=== PATIENT | male | born 1935 | race Asian ===

== ENCOUNTER 2019-06-26 17:55 | Inpatient (IN) | payer OTHER ==
[~2019-06-26] VITALS: Ht 165.1 cm; Wt 68.0 kg
--- NOTE | 2019-06-26 18:17 | Emergency Room Report ---
History of Present Illness General Chief Complaint: Altered Mental Status Source: Family Member Present Illness HPI 83-year-old male history of hypertension history of CKD presents with altered mental status started at 5 PM no known aggravating relieving factors patient was confused, patient was found sitting down in the garage, patient denies any chest pain or shortness of breath however history is limited due to patient's confusion per nephew patient also feels very warm Allergies: Coded Allergies: No Known Allergies (Unverified , 06/26/19) Patient History Limited by: medical condition - Confused Past Medical History: see triage record Reviewed Nursing Documentation: PMH: Agreed; PSxH: Agreed Nursing Documentation-PMH Past Medical History: No Stated History Review of Systems All Other Systems: limited - Confused Physical Exam Vital Signs Date Time Temp Pulse Resp B/P (MAP) Pulse Ox O2 Delivery O2 Flow Rate FiO2 06/26/19 17:57 97.9 98 16 112/53 (72) 96 Room Air Sp02 EP Interpretation: reviewed, normal General Appearance: well appearing, no apparent distress, alert Head: normocephalic, atraumatic Eyes: bilateral eye PERRL, bilateral eye EOMI ENT: uvula midline, moist mucus membranes Neck: supple, thyroid normal, supple/symm/no masses Respiratory: lungs clear, no respiratory distress, no retraction, no accessory muscle use Cardiovascular #1: normal peripheral pulses, regular rate, rhythm, no edema, no gallop, no murmur Gastrointestinal: non tender, soft, no guarding, no rebound Musculoskeletal: normal inspection Neurologic: alert, other - Confused, moving all 4 extremities, following commands Psychiatric: mood/affect normal Skin: no rash, warm/dry Procedures Critical Care Time Critical Care Time Given the critical condition in which the patient arrived, the patient was immediately assessed by myself and the nurse, and cardiac monitoring initiated due to the potential for rapid decompensation of the patient's clinical condition. During the course of the patient's stay, I spent a considerable amount of time at the bedside performing serial re-evaluations of the patient's hemodynamic and clinical status because of the recognized potential threat to life or limb in this condition. I then had a chance to review not only all of the available current laboratory and radiographic studies obtained today, but I also reviewed old records available to me at the time. Additionally, any ancillary information available including property and equipment clerk records were reviewed. Sequential vital signs were obtained. Critical Care time of 36 minutes was performed exclusive of billable procedures. Medical Decision Making Diagnostic Impression: Primary Impression: Altered mental status Qualified Codes: R41.82 - Altered mental status, unspecified Additional Impressions: UTI (urinary tract infection) Qualified Codes: N30.01 - Acute cystitis with hematuria Sepsis Qualified Codes: A41.9 - Sepsis, unspecified organism; R65.20 - Severe sepsis without septic shock; G93.40 - Encephalopathy, unspecified ER Course 83-year-old male presents with most likely UTI due to sepsis, will cover with antibiotics, will resuscitate with fluids CT incidentally showed a potential pituitary adenoma with sellar hyperdense lesion that could be further characterized with MRI Spoke with [facility] at 8:50pm, Neurocrit neurologist recommended no acute intervention Spoke with neurosurgeon at 10:[address] King from [facility] No acute surgical intervention patient may be characterized further with MRI, may check cortisol, may check thyroid to ensure tumor is not contributing to AMS in addition to urosepsis. Will admit patient to [facility]. Laboratory Tests Test 06/26/19 18:20 White Blood Count 9.6 K/UL (4.8-10.8) Red Blood Count 3.94 M/UL (4.70-6.10) L Hemoglobin 13.4 G/DL (14.2-18.0) L Hematocrit 41.9 % (42.0-52.0) L Mean Corpuscular Volume 106 FL (80-99) H Mean Corpuscular Hemoglobin 34.0 PG (27.0-31.0) H Mean Corpuscular Hemoglobin Concent 31.9 G/DL (32.0-36.0) L Red Cell Distribution Width 13.2 % (11.6-14.8) Platelet Count 114 K/UL (150-450) L Mean Platelet Volume 8.5 FL (6.5-10.1) Neutrophils (%) (Auto) % (45.0-75.0) Lymphocytes (%) (Auto) % (20.0-45.0) Monocytes (%) (Auto) % (1.0-10.0) Eosinophils (%) (Auto) % (0.0-3.0) Basophils (%) (Auto) % (0.0-2.0) Differential Total Cells Counted 100 Neutrophils % (Manual) 90 % (45-75) H Lymphocytes % (Manual) 4 % (20-45) L Monocytes % (Manual) 1 % (1-10) Eosinophils % (Manual) 0 % (0-3) Basophils % (Manual) 0 % (0-2) Band Neutrophils 5 % (0-8) Platelet Estimate Decreased L Platelet Morphology Normal Anisocytosis 1+ Macrocytosis 1+ Prothrombin Time 21.7 SEC (9.30-11.50) H Prothrombin Time INR 2.1 (0.9-1.1) H Activated Partial Thromboplast Time 35 SEC (23-33) H Urine Color Yellow Urine Appearance Slightly cloudy Urine pH 5 (4.5-8.0) Urine Specific [place] 1.020 (1.005-1.035) Urine Protein 2+ (NEGATIVE) H Urine Glucose (UA) Negative (NEGATIVE) Urine Ketones 1+ (NEGATIVE) H Urine Blood 5+ (NEGATIVE) H Urine Nitrite Negative (NEGATIVE) Urine Bilirubin Negative (NEGATIVE) Urine Urobilinogen 1 MG/DL (0.0-1.0) H Urine Leukocyte Esterase 1+ (NEGATIVE) H Urine RBC 20-30 /HPF (0 - 0) H Urine WBC 2-4 /HPF (0 - 0) Urine Squamous Epithelial Cells Occasional /LPF Urine Bacteria Many /HPF (NONE) H Urine Fine Granular Casts 0-2 /LPF (NONE) H Sodium Level 140 MMOL/L (136-145) Potassium Level 4.0 MMOL/L (3.5-5.1) Chloride Level 104 MMOL/L (98-107) Carbon Dioxide Level 24 MMOL/L (21-32) Anion Gap 12 mmol/L (5-15) Blood Urea Nitrogen 42 mg/dL (7-18) H Creatinine 2.1 MG/DL (0.55-1.30) H Estimate Glomerular Filtration Rate mL/min (>60) Glucose Level 108 MG/DL (74-106) H Lactic Acid Level 2.80 mmol/L (0.4-2.0) H Calcium Level 9.1 MG/DL (8.5-10.1) Phosphorus Level 1.8 MG/DL (2.5-4.9) L Magnesium Level 1.9 MG/DL (1.8-2.4) Total Bilirubin 2.1 MG/DL (0.2-1.0) H Direct Bilirubin 0.5 MG/DL (0.0-0.3) H Aspartate Amino Transferase (AST) 51 U/L (15-37) H Alanine Aminotransferase (ALT) 37 U/L (12-78) Alkaline Phosphatase 83 U/L (46-116) Total Creatine Kinase 250 U/L (26-308) Troponin I 0.018 ng/mL (0.000-0.056) Pro-B-Type Natriuretic Peptide 5562 pg/mL (0-125) H Total Protein 7.3 G/DL (6.4-8.2) Albumin 3.6 G/DL (3.4-5.0) Globulin 3.7 g/dL Albumin/Globulin Ratio 1.0 (1.0-2.7) Lipase 106 U/L (73-393) EKG Diagnostic Results EKG Time: 18:59 EP Interpretation: Atrial fibrillation, rate 103, QTc 434, no acute ST elevations, left axis d Rhythm Strip Diag. Results Rhythm Strip Time: 20:18 EP Interpretation: yes Rate: 85 Rhythm: other - Atrial fibrillation Chest X-Ray Diagnostic Results Chest X-Ray Diagnostic Results : Chest X-Ray Ordered: Yes # of Views/Limited/Complete: 1 View Indication: Other - Altered mental status EP Interpretation: Yes Interpretation: no consolidation, no effusion, no pneumothorax, no acute cardiopulmonary disease Impression: No acute disease Electronically Signed by: Elver Krishna MD Last Vital Signs Date Time Temp Pulse Resp B/P (MAP) Pulse Ox O2 Delivery O2 Flow Rate FiO2 06/26/19 17:57 97.9 98 16 112/53 (72) 96 Room Air Disposition: ADMITTED INPATIENT Condition: Serious Evaluation Current Stage of Sepsis: Sepsis Focused Exam Allergies: Coded Allergies: No Known Allergies (Unverified , 06/26/19) Date Exam Occurred: Jun 26, 2019 Time Exam Occurred: 20:19 Laboratory Studies Laboratory Tests Test 06/26/19 18:20 White Blood Count 9.6 K/UL (4.8-10.8) Red Blood Count 3.94 M/UL (4.70-6.10) L Hemoglobin 13.4 G/DL (14.2-18.0) L Hematocrit 41.9 % (42.0-52.0) L Mean Corpuscular Volume 106 FL (80-99) H Mean Corpuscular Hemoglobin 34.0 PG (27.0-31.0) H Mean Corpuscular Hemoglobin Concent 31.9 G/DL (32.0-36.0) L Red Cell Distribution Width 13.2 % (11.6-14.8) Platelet Count 114 K/UL (150-450) L Mean Platelet Volume 8.5 FL (6.5-10.1) Neutrophils (%) (Auto) % (45.0-75.0) Lymphocytes (%) (Auto) % (20.0-45.0) Monocytes (%) (Auto) % (1.0-10.0) Eosinophils (%) (Auto) % (0.0-3.0) Basophils (%) (Auto) % (0.0-2.0) Differential Total Cells Counted 100 Neutrophils % (Manual) 90 % (45-75) H Lymphocytes % (Manual) 4 % (20-45) L Monocytes % (Manual) 1 % (1-10) Eosinophils % (Manual) 0 % (0-3) Basophils % (Manual) 0 % (0-2) Band Neutrophils 5 % (0-8) Platelet Estimate Decreased L Platelet Morphology Normal Anisocytosis 1+ Macrocytosis 1+ Prothrombin Time 21.7 SEC (9.30-11.50) H Prothromb Time International Ratio 2.1 (0.9-1.1) H Activated Partial Thromboplast Time 35 SEC (23-33) H Urine Color Yellow Urine Appearance Slightly cloudy Urine pH 5 (4.5-8.0) Urine Specific [place] 1.020 (1.005-1.035) Urine Protein 2+ (NEGATIVE) H Urine Glucose (UA) Negative (NEGATIVE) Urine Ketones 1+ (NEGATIVE) H Urine Blood 5+ (NEGATIVE) H Urine Nitrite Negative (NEGATIVE) Urine Bilirubin Negative (NEGATIVE) Urine Urobilinogen 1 MG/DL (0.0-1.0) H Urine Leukocyte Esterase 1+ (NEGATIVE) H Urine RBC 20-30 /HPF (0 - 0) H Urine WBC 2-4 /HPF (0 - 0) Urine Squamous Epithelial Cells Occasional /LPF Urine Bacteria Many /HPF (NONE) H Urine Fine Granular Casts 0-2 /LPF (NONE) H Sodium Level 140 MMOL/L (136-145) Potassium Level 4.0 MMOL/L (3.5-5.1) Chloride Level 104 MMOL/L (98-107) Carbon Dioxide Level 24 MMOL/L (21-32) Anion Gap 12 mmol/L (5-15) Blood Urea Nitrogen 42 mg/dL (7-18) H Creatinine 2.1 MG/DL (0.55-1.30) H Estimat Glomerular Filtration Rate mL/min (>60) Glucose Level 108 MG/DL (74-106) H Lactic Acid Level 2.80 mmol/L (0.4-2.0) H Calcium Level 9.1 MG/DL (8.5-10.1) Phosphorus Level 1.8 MG/DL (2.5-4.9) L Magnesium Level 1.9 MG/DL (1.8-2.4) Total Bilirubin 2.1 MG/DL (0.2-1.0) H Direct Bilirubin 0.5 MG/DL (0.0-0.3) H Aspartate Amino Transf (AST/SGOT) 51 U/L (15-37) H Alanine Aminotransferase (ALT/SGPT) 37 U/L (12-78) Alkaline Phosphatase 83 U/L (46-116) Total Creatine Kinase 250 U/L (26-308) Troponin I 0.018 ng/mL (0.000-0.056) Pro-B-Type Natriuretic Peptide 5562 pg/mL (0-125) H Total Protein 7.3 G/DL (6.4-8.2) Albumin 3.6 G/DL (3.4-5.0) Globulin 3.7 g/dL Albumin/Globulin Ratio 1.0 (1.0-2.7) Lipase 106 U/L (73-393) Vital Signs Last 24 Hour Vital Signs Date Time Temp Pulse Resp B/P (MAP) Pulse Ox O2 Delivery O2 Flow Rate FiO2 06/26/19 18:20 97.9 94 16 112/53 96 Room Air 06/26/19 18:20 98 16 Room Air 06/26/19 17:57 97.9 98 16 112/53 (72) 96 Room Air Respiratory Exam: CTA Bilaterally Cardiovascular Exam: Iregularly Irregular Capillary Refill: Less Than 2 Seconds Peripheral Pulse: Strong Pulse Location: Radial Skin Exam: Normal Elver Zhang MD Jun 26, 2019 18:17
[2019-06-26 18:20] VITALS: BP 112/53
--- NOTE | 2019-06-26 18:20 | NUR ---
ED Nurse Note: Pt brought in by ambulance d/t altered mental status. Nephew at bedside. Per nephew, pt is usually A+Ox4 at baseline, with some forgetfulness, but now in ED he is A+Ox2, confused. Vitals stable as documented. Respirations even and unlabored on room air. Pt is kazakh speaking only. ED MD @ bedside.
[2019-06-26 18:50] LABS: APPEARANCE,URINE SLIGHTLY CLOUDY; BILIRUBIN, URINE NEGATIVE (NEGATIVE); GLUCOSE, URINE (UA) NEGATIVE (NEGATIVE); KETONES,URINE 1+ (NEGATIVE); LEUKOCYTE ESTERASE ,URINE 1+ (NEGATIVE); NITRITE,URINE NEGATIVE (NEGATIVE); PH,URINE 5 (4.5-8.0); PROTEIN,URINE 2+ (NEGATIVE); UROBILINOGEN,URINE 1 MG/DL (0.0-1.0)
[2019-06-26 18:51] LABS: COLOR,URINE YELLOW; HEMATOCRIT 41.9 % (42.0-52.0); HEMOGLOBIN 13.4 G/DL (14.2-18.0); MEAN CORPUSCULAR VOLUME 106 FL (80-99); PLATELET COUNT 114 K/UL (150-450); RED BLOOD COUNT 3.94 M/UL (4.70-6.10); RED CELL DISTRIBUTION WIDTH 13.2 % (11.6-14.8); WHITE BLOOD COUNT 9.6 K/UL (4.8-10.8)
[2019-06-26 19:04] LABS: INR 2.1 (0.9-1.1)
[2019-06-26 19:08] LABS: ANION GAP 12 mmol/L (5-15); BLOOD UREA NITROGEN 42 mg/dL (7-18); CALCIUM 9.1 MG/DL (8.5-10.1); CARBON DIOXIDE 24 MMOL/L (21-32); CHLORIDE 104 MMOL/L (98-107); CREATININE 2.1 MG/DL (0.55-1.30); SODIUM 140 MMOL/L (136-145)
[2019-06-26 19:22] LABS: ALANINE AMINOTRANSFERASE 37 U/L (12-78); ALBUMIN 3.6 G/DL (3.4-5.0); ALKALINE PHOSPHATASE 83 U/L (46-116); ASPARTATE AMINO TRANSFERASE 51 U/L (15-37); BILIRUBIN,TOTAL 2.1 MG/DL (0.2-1.0); CREATINE KINASE 250 U/L (26-308); PHOSPHORUS 1.8 MG/DL (2.5-4.9)
[2019-06-26 19:23] LABS: BILIRUBIN,DIRECT 0.5 MG/DL (0.0-0.3)
--- NOTE | 2019-06-26 19:40 | NUR ---
ED Nurse Note: Report given to HANNAH Ceron. Plan of care endorsed.
[2019-06-26] MEDS ORDERED: cefTRIAXone 1 GM in NS 55 ML IVPB ONE (19:45)
--- NOTE | 2019-06-26 20:17 | Diagnostic Imaging Report ---
Indications: Altered mental status Technique: Spiral acquisitions obtained through the brain. Angled axial and coronal 5 x 5 mm slices were reconstructed. Total dose length product 1394 mGycm. CTDI vol(s) 62 mGy. Dose reduction achieved using automated exposure control Comparison: None. Findings: There is age-related enlargement of the ventricles and extra axial CSF spaces. There is periventricular deep white matter low-attenuation, consistent with chronic microvascular ischemic change. There is a hyperattenuating mass protruding cephalad from the sella turcica, measures 18 mm transverse by 16 mm AP by 15 mm craniocaudad. There is evidence of prior bilateral cataract surgery. Normal skelton-white differentiation. The mastoids are clear. The visualized sinuses are clear. The calvarium is intact. 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 Consider contrast MRI for better characterization Negative for acute intracranial bleed or mass effect Chronic and age-related changes This agrees with the preliminary interpretation provided overnight by [facility]. The CT scanner at [facility] is accredited by the [employer] and the scans are performed using protocols designed to limit radiation exposure to as low as reasonably achievable to attain images of sufficient resolution adequate for diagnostic evaluation.
--- NOTE | 2019-06-26 20:20 | NUR ---
ED Nurse Note: Patient resting comfortably with no complaints, nephew is at bedside.
--- NOTE | 2019-06-26 20:25 | NUR ---
ED Nurse Note: Reflex lactic drawn and sent to lab.
--- NOTE | 2019-06-26 20:44 | NUR ---
ED Nurse Note: Patient tolerated IV antibiotics well, will continue to monitor.
--- NOTE | 2019-06-26 21:30 | NUR ---
ED Nurse Note: Patient vital signs are stable and documented, will continue to monitor.
--- NOTE | 2019-06-26 22:30 | NUR ---
ED Nurse Note: ERMd at bedside consulting patient's nephew.
--- NOTE | 2019-06-26 23:30 | NUR ---
ED Nurse Note: Patient is resting comfortably, belongings sheet completed. Nephew remains at bedside.
[2019-06-27] MEDS ORDERED: Albuterol/Ipratropium 3ml neb HHN PRN
[2019-06-27] MEDS ORDERED: Miralax 17gm pkt ORAL PRN
--- NOTE | 2019-06-27 00:21 | NUR ---
ED Nurse Note: REport called in to Minsu RN.
--- NOTE | 2019-06-27 00:25 | NUR ---
ED Nurse Note: Patient transported to floor without incident.
--- NOTE | 2019-06-27 00:55 | NUR ---
NURSE NOTES: Received report from HANNAH Hill. Pt arrived to the unit @ 0040 via gurney. AAO x 4, on room air. Sinhala speaking. Family is at bedside. Denies pain and no acute distress noted. Vitals stable 120/67BP, 89 HR, 20 RR, 95% O2, 97.8F. Pt wearing upper and lower denture. All belongings reviewed. Pt stated taking blood pressure med at home but doesn't remember name of medication and dose. Family will bring it tomorrow. Skin intact and no pressure ulcer noted. IV site intact and patent. pt is using urinal. Fall and aspiration precaution maintained. Orientation to the facility and room given. Dr. West put admission orders. Bed lowest position, locked, alarm on, side rails up, call light within reach. Will continue to monitor.
[2019-06-27 04:00] VITALS: BP 128/70
[2019-06-27] MEDS: NovoLOG Insulin Flexpen SUBQ SCH ×2 (05:38→11:30)
[2019-06-27 07:15] LABS: ANION GAP 5 mmol/L (5-15); BLOOD UREA NITROGEN 39 mg/dL (7-18); CALCIUM 8.4 MG/DL (8.5-10.1); CARBON DIOXIDE 27 MMOL/L (21-32); CHLORIDE 109 MMOL/L (98-107); CREATININE 1.5 MG/DL (0.55-1.30); POTASSIUM 4.3 MMOL/L (3.5-5.1); SODIUM 141 MMOL/L (136-145)
[2019-06-27 07:35] LABS: HEMATOCRIT 33.6 % (42.0-52.0); HEMOGLOBIN 11.7 G/DL (14.2-18.0); MEAN CORPUSCULAR VOLUME 101 FL (80-99); PLATELET COUNT 74 K/UL (150-450); RED BLOOD COUNT 3.33 M/UL (4.70-6.10); WHITE BLOOD COUNT 13.7 K/UL (4.8-10.8)
--- NOTE | 2019-06-27 07:35 | NUR ---
HAND-OFF: Report given to HANNAH Jackson.
--- NOTE | 2019-06-27 07:36 | NUR ---
NURSE NOTES: Received patient in bed, awake, alert and oriented x4 @ this time. Patient denies any pain or discomfort. Not in respiratory/cardiac distress. Able to urinate without discomfort,no bloody urine. IV is intact, no s/s of infiltration. Patient is on NPO per doctor's order. No s/s of hypoglycemia. Call light and personnel items within reach. Will continue plan of care.
[2019-06-27 08:00] VITALS: BP 125/56
--- NOTE | 2019-06-27 09:30 | NUR ---
NURSE NOTES: patient's nephew Otis brought some medication bottles from home but 4 bottles out of 5 were empty and patient and nephew don't know when was the last time patient took medications. Patient's primary doctor is Dr. Lamb,E [phone] and Pharmacy is [facility] pharmacy. RN placed calls to both places. no one answers the phone @ this time.Will follow up.
--- NOTE | 2019-06-27 10:35 | NUR ---
PT EVALUATION NOTE Patient seen for initial evaluation. Patient presents with generalized weakness which impairs patient's balance and ability to perform mobility tasks safely. Patient requires SBA for bed mobility and CGA for transfers. Patient able to ambulate 75 ft with CGA, slightly unsteady during ambulation however no loss of balance. Patient will benefit from skilled inpatient PT intervention to address strength, balance and safety for improved level of independence with functional mobility. Recommend discharge home with family assistance once medically cleared by MD. DME needs to be determined based on patient's progress, may benefit from use of SPC for ambulation. Addendum: 06/27/19 at 1315 by ANA JACKSON PT Amended: Links added.
[2019-06-27] MEDS ORDERED: CARVEDILOL6.25 MG ORAL (10:41)
[2019-06-27] MEDS ORDERED: WARFARIN SODIUM3 MG ORAL (10:41)
[2019-06-27] MEDS ORDERED: CALCITRIOL0.25 MCG PO (10:41)
[2019-06-27] MEDS ORDERED: FINASTERIDE5 MG ORAL (10:41)
[2019-06-27] MEDS ORDERED: FLOMAX0.4 MG ORAL (10:41)
--- NOTE | 2019-06-27 11:00 | NUR ---
NURSE NOTES: Patient was seen by Dr. West. Dr. West is aware of PLT of 74 without episodes of bleeding.Received ST eval.patient was evaluated by PT.
--- NOTE | 2019-06-27 11:13 | NUR ---
*-* INSURANCE *-* ALL CLINICALS AND REVIEWS HAVE BEEN FAXED TO: [facility] [employer] # YET # [phone] FAX# [phone] REVIEWS/CLINICALS
--- NOTE | 2019-06-27 11:18 | NUR ---
NURSE NOTES: Received blood culture report from Bety from [place].Blood culture came back positive to gram (-) rods in 4 bottles. RN placed a call to Dr. Leung's office and left message to Margaret. Awaiting for return call.Patient is afebrile. Not in acute distress.
--- NOTE | 2019-06-27 11:30 | NUR ---
NURSE NOTES: Dr. gee came in and seen the patient. MD is aware of blood culture result.
--- NOTE | 2019-06-27 11:49 | Infectious Diseases Prog Note ---
Assessment/Plan Assessment/Plan A) 1. gram neg bacteremia, ? uti, ?biliary source, elevated bilirubin 2. pmh noted 3. allergies - nkda P) 1. zosyn 2. check bc, uc 3. abdominal US 4. d/w Dr. West 5. thank you Subjective Allergies: Coded Allergies: No Known Allergies (Unverified , 06/26/19) Objective Vital Signs Last 24 Hour Vital Signs Date Time Temp Pulse Resp B/P (MAP) Pulse Ox O2 Delivery O2 Flow Rate FiO2 06/27/19 09:00 Room Air 06/27/19 08:00 97.3 84 18 125/56 (79) 97 06/27/19 04:00 97.7 81 20 128/70 (89) 97 06/27/19 01:21 Room Air 06/27/19 00:25 97.9 94 16 112/53 96 Room Air 06/26/19 18:20 97.9 94 16 112/53 96 Room Air 06/26/19 18:20 98 16 Room Air 06/26/19 17:57 97.9 98 16 112/53 (72) 96 Room Air Height (Feet): 5 Height (Inches): 5.00 Weight (Pounds): 160 Microbiology Date/Time Source Procedure Growth Status 06/26/19 18:25 Blood Blood Culture - Preliminary Resulted 06/26/19 18:10 Blood Blood Culture - Preliminary Resulted 06/26/19 18:20 Urine,Clean Catch Urine Culture - Preliminary NO GROWTH Resulted Laboratory Tests Test 06/26/19 18:10 06/26/19 18:20 06/26/19 20:23 06/27/19 05:45 Thyroid Stimulating Hormone (TSH) 1.535 uiU/mL (0.358-3.740) Free Thyroxine 0.98 NG/DL (0.76-1.46) Free Triiodothyronine 1.4 pg/mL (2.3-4.2) L Cortisol Pending White Blood Count 9.6 K/UL (4.8-10.8) 13.7 K/UL (4.8-10.8) H Red Blood Count 3.94 M/UL (4.70-6.10) L 3.33 M/UL (4.70-6.10) L Hemoglobin 13.4 G/DL (14.2-18.0) L 11.7 G/DL (14.2-18.0) L Hematocrit 41.9 % (42.0-52.0) L 33.6 % (42.0-52.0) L Mean Corpuscular Volume 106 FL (80-99) H 101 FL (80-99) H Mean Corpuscular Hemoglobin 34.0 PG (27.0-31.0) H 35.0 PG (27.0-31.0) H Mean Corpuscular Hemoglobin Concent 31.9 G/DL (32.0-36.0) L 34.7 G/DL (32.0-36.0) Red Cell Distribution Width 13.2 % (11.6-14.8) 13.0 % (11.6-14.8) Platelet Count 114 K/UL (150-450) L 74 K/UL (150-450) L Mean Platelet Volume 8.5 FL (6.5-10.1) 7.4 FL (6.5-10.1) Neutrophils (%) (Auto) % (45.0-75.0) % (45.0-75.0) Lymphocytes (%) (Auto) % (20.0-45.0) % (20.0-45.0) Monocytes (%) (Auto) % (1.0-10.0) % (1.0-10.0) Eosinophils (%) (Auto) % (0.0-3.0) % (0.0-3.0) Basophils (%) (Auto) % (0.0-2.0) % (0.0-2.0) Differential Total Cells Counted 100 100 Neutrophils % (Manual) 90 % (45-75) H 91 % (45-75) H Lymphocytes % (Manual) 4 % (20-45) L 5 % (20-45) L Monocytes % (Manual) 1 % (1-10) 4 % (1-10) Eosinophils % (Manual) 0 % (0-3) 0 % (0-3) Basophils % (Manual) 0 % (0-2) 0 % (0-2) Band Neutrophils 5 % (0-8) 0 % (0-8) Platelet Estimate Decreased L Decreased L Platelet Morphology Normal Normal Anisocytosis 1+ 1+ Macrocytosis 1+ 1+ Prothrombin Time 21.7 SEC (9.30-11.50) H Prothromb Time International Ratio 2.1 (0.9-1.1) H Activated Partial Thromboplast Time 35 SEC (23-33) H Urine Color Yellow Urine Appearance Slightly cloudy Urine pH 5 (4.5-8.0) Urine Specific [place] 1.020 (1.005-1.035) Urine Protein 2+ (NEGATIVE) H Urine Glucose (UA) Negative (NEGATIVE) Urine Ketones 1+ (NEGATIVE) H Urine Blood 5+ (NEGATIVE) H Urine Nitrite Negative (NEGATIVE) Urine Bilirubin Negative (NEGATIVE) Urine Urobilinogen 1 MG/DL (0.0-1.0) H Urine Leukocyte Esterase 1+ (NEGATIVE) H Urine RBC 20-30 /HPF (0 - 0) H Urine WBC 2-4 /HPF (0 - 0) Urine Squamous Epithelial Cells Occasional /LPF Urine Bacteria Many /HPF (NONE) H Urine Fine Granular Casts 0-2 /LPF (NONE) H Sodium Level 140 MMOL/L (136-145) 141 MMOL/L (136-145) Potassium Level 4.0 MMOL/L (3.5-5.1) 4.3 MMOL/L (3.5-5.1) Chloride Level 104 MMOL/L (98-107) 109 MMOL/L (98-107) H Carbon Dioxide Level 24 MMOL/L (21-32) 27 MMOL/L (21-32) Anion Gap 12 mmol/L (5-15) 5 mmol/L (5-15) Blood Urea Nitrogen 42 mg/dL (7-18) H 39 mg/dL (7-18) H Creatinine 2.1 MG/DL (0.55-1.30) H 1.5 MG/DL (0.55-1.30) H Estimat Glomerular Filtration Rate mL/min (>60) mL/min (>60) Glucose Level 108 MG/DL (74-106) H 109 MG/DL (74-106) H Lactic Acid Level 2.80 mmol/L (0.4-2.0) H 1.90 mmol/L (0.66-2.22) Calcium Level 9.1 MG/DL (8.5-10.1) 8.4 MG/DL (8.5-10.1) L Phosphorus Level 1.8 MG/DL (2.5-4.9) L Magnesium Level 1.9 MG/DL (1.8-2.4) Total Bilirubin 2.1 MG/DL (0.2-1.0) H Direct Bilirubin 0.5 MG/DL (0.0-0.3) H Aspartate Amino Transf (AST/SGOT) 51 U/L (15-37) H Alanine Aminotransferase (ALT/SGPT) 37 U/L (12-78) Alkaline Phosphatase 83 U/L (46-116) Total Creatine Kinase 250 U/L (26-308) Troponin I 0.018 ng/mL (0.000-0.056) Pro-B-Type Natriuretic Peptide 5562 pg/mL (0-125) H Total Protein 7.3 G/DL (6.4-8.2) Albumin 3.6 G/DL (3.4-5.0) Globulin 3.7 g/dL Albumin/Globulin Ratio 1.0 (1.0-2.7) Lipase 106 U/L (73-393) Hemoglobin A1c 6.1 % (4.3-6.0) H Current Medications Medications (Trade) Dose Ordered Sig/Chicho Route PRN Reason Start Time Stop Time Status Last Admin Dose Admin Acetaminophen (Tylenol) 650 mg Q4H PRN ORAL Mild Pain (Pain Scale 1-3) 06/27/19 00:00 07/27/19 00:00 Acetaminophen (Tylenol) 650 mg Q4H PRN ORAL fever 06/27/19 00:00 07/27/19 00:00 Albuterol/ Ipratropium (Albuterol/ Ipratropium) 3 ml Q4HR PRN HHN Shortness of Breath 06/27/19 00:00 07/02/19 00:00 Ceftriaxone Sodium 1 gm/ Sodium Chloride 55 ml @ 110 mls/hr DAILY@1900 IVPB 06/27/19 19:00 07/04/19 18:59 Dextrose (Dextrose 50%) 25 ml Q30M PRN IV Hypoglycemia 06/27/19 00:00 07/27/19 00:00 Dextrose (Dextrose 50%) 50 ml Q30M PRN IV Hypoglycemia 06/27/19 00:00 07/27/19 00:00 Ondansetron HCl (Zofran) 4 mg Q6H PRN IVP Nausea & Vomiting 2/11/20 00:00 07/27/19 00:00 Polyethylene Glycol (Miralax) 17 gm HSPRN PRN ORAL Constipation 06/27/19 00:00 07/27/19 00:00 Sohail Leung MD Jun 27, 2019 11:49
[2019-06-27 12:00] VITALS: BP 143/71
--- NOTE | 2019-06-27 12:07 | NUR ---
CASE MANAGEMENT:INITIAL REVIEW 83 YR OLD MALE BIBA FROM HOME CC; ALTERED MENTAL STATUS SI;AMS. SEPSIS. UTI. 97.9 98 20 125/56 96% ON RA BUN 42 CREAT 2.1 T-BILI 2.1 AST 51 BNP 5562 UA+ PROTEIN, KETONES, BLOOD, UROBILI, LEUKOCYTES, RBC BACTERIA HEAD CR - Mild chronic small vessel ischemic disease and cerebral volume loss. IS;IVF NS BOLUS ROCEPHIN IV X1 ADMITTED TO MED SURG MED SURG STATUS DCP;FROM HOME
--- NOTE | 2019-06-27 12:21 | Cardiac Electrophysiology PN ---
Subjective Subjective [id number] Objective Last 24 Hour Vital Signs Date Time Temp Pulse Resp B/P (MAP) Pulse Ox O2 Delivery O2 Flow Rate FiO2 06/27/19 09:00 Room Air 06/27/19 08:00 97.3 84 18 125/56 (79) 97 06/27/19 04:00 97.7 81 20 128/70 (89) 97 06/27/19 01:21 Room Air 06/27/19 00:25 97.9 94 16 112/53 96 Room Air 06/26/19 18:20 97.9 94 16 112/53 96 Room Air 06/26/19 18:20 98 16 Room Air 06/26/19 17:57 97.9 98 16 112/53 (72) 96 Room Air Intake and Output 06/26/19 06/27/19 19:00 07:00 Intake Total 0 ml Output Total 500 ml Balance 0 ml -500 ml Intake Oral 0 ml Output Urine Total 500 ml Laboratory Tests Test 06/26/19 18:10 06/26/19 18:20 06/26/19 20:23 06/27/19 05:45 Thyroid Stimulating Hormone (TSH) 1.535 uiU/mL (0.358-3.740) Free Thyroxine 0.98 NG/DL (0.76-1.46) Free Triiodothyronine 1.4 pg/mL (2.3-4.2) L Cortisol Pending White Blood Count 9.6 K/UL (4.8-10.8) 13.7 K/UL (4.8-10.8) H Red Blood Count 3.94 M/UL (4.70-6.10) L 3.33 M/UL (4.70-6.10) L Hemoglobin 13.4 G/DL (14.2-18.0) L 11.7 G/DL (14.2-18.0) L Hematocrit 41.9 % (42.0-52.0) L 33.6 % (42.0-52.0) L Mean Corpuscular Volume 106 FL (80-99) H 101 FL (80-99) H Mean Corpuscular Hemoglobin 34.0 PG (27.0-31.0) H 35.0 PG (27.0-31.0) H Mean Corpuscular Hemoglobin Concent 31.9 G/DL (32.0-36.0) L 34.7 G/DL (32.0-36.0) Red Cell Distribution Width 13.2 % (11.6-14.8) 13.0 % (11.6-14.8) Platelet Count 114 K/UL (150-450) L 74 K/UL (150-450) L Mean Platelet Volume 8.5 FL (6.5-10.1) 7.4 FL (6.5-10.1) Neutrophils (%) (Auto) % (45.0-75.0) % (45.0-75.0) Lymphocytes (%) (Auto) % (20.0-45.0) % (20.0-45.0) Monocytes (%) (Auto) % (1.0-10.0) % (1.0-10.0) Eosinophils (%) (Auto) % (0.0-3.0) % (0.0-3.0) Basophils (%) (Auto) % (0.0-2.0) % (0.0-2.0) Differential Total Cells Counted 100 100 Neutrophils % (Manual) 90 % (45-75) H 91 % (45-75) H Lymphocytes % (Manual) 4 % (20-45) L 5 % (20-45) L Monocytes % (Manual) 1 % (1-10) 4 % (1-10) Eosinophils % (Manual) 0 % (0-3) 0 % (0-3) Basophils % (Manual) 0 % (0-2) 0 % (0-2) Band Neutrophils 5 % (0-8) 0 % (0-8) Platelet Estimate Decreased L Decreased L Platelet Morphology Normal Normal Anisocytosis 1+ 1+ Macrocytosis 1+ 1+ Prothrombin Time 21.7 SEC (9.30-11.50) H Prothromb Time International Ratio 2.1 (0.9-1.1) H Activated Partial Thromboplast Time 35 SEC (23-33) H Urine Color Yellow Urine Appearance Slightly cloudy Urine pH 5 (4.5-8.0) Urine Specific [place] 1.020 (1.005-1.035) Urine Protein 2+ (NEGATIVE) H Urine Glucose (UA) Negative (NEGATIVE) Urine Ketones 1+ (NEGATIVE) H Urine Blood 5+ (NEGATIVE) H Urine Nitrite Negative (NEGATIVE) Urine Bilirubin Negative (NEGATIVE) Urine Urobilinogen 1 MG/DL (0.0-1.0) H Urine Leukocyte Esterase 1+ (NEGATIVE) H Urine RBC 20-30 /HPF (0 - 0) H Urine WBC 2-4 /HPF (0 - 0) Urine Squamous Epithelial Cells Occasional /LPF Urine Bacteria Many /HPF (NONE) H Urine Fine Granular Casts 0-2 /LPF (NONE) H Sodium Level 140 MMOL/L (136-145) 141 MMOL/L (136-145) Potassium Level 4.0 MMOL/L (3.5-5.1) 4.3 MMOL/L (3.5-5.1) Chloride Level 104 MMOL/L (98-107) 109 MMOL/L (98-107) H Carbon Dioxide Level 24 MMOL/L (21-32) 27 MMOL/L (21-32) Anion Gap 12 mmol/L (5-15) 5 mmol/L (5-15) Blood Urea Nitrogen 42 mg/dL (7-18) H 39 mg/dL (7-18) H Creatinine 2.1 MG/DL (0.55-1.30) H 1.5 MG/DL (0.55-1.30) H Estimat Glomerular Filtration Rate mL/min (>60) mL/min (>60) Glucose Level 108 MG/DL (74-106) H 109 MG/DL (74-106) H Lactic Acid Level 2.80 mmol/L (0.4-2.0) H 1.90 mmol/L (0.66-2.22) Calcium Level 9.1 MG/DL (8.5-10.1) 8.4 MG/DL (8.5-10.1) L Phosphorus Level 1.8 MG/DL (2.5-4.9) L Magnesium Level 1.9 MG/DL (1.8-2.4) Total Bilirubin 2.1 MG/DL (0.2-1.0) H Direct Bilirubin 0.5 MG/DL (0.0-0.3) H Aspartate Amino Transf (AST/SGOT) 51 U/L (15-37) H Alanine Aminotransferase (ALT/SGPT) 37 U/L (12-78) Alkaline Phosphatase 83 U/L (46-116) Total Creatine Kinase 250 U/L (26-308) Troponin I 0.018 ng/mL (0.000-0.056) Pro-B-Type Natriuretic Peptide 5562 pg/mL (0-125) H Total Protein 7.3 G/DL (6.4-8.2) Albumin 3.6 G/DL (3.4-5.0) Globulin 3.7 g/dL Albumin/Globulin Ratio 1.0 (1.0-2.7) Lipase 106 U/L (73-393) Hemoglobin A1c 6.1 % (4.3-6.0) H Microbiology Date/Time Source Procedure Growth Status 06/26/19 18:25 Blood Blood Culture - Preliminary Resulted 06/26/19 18:10 Blood Blood Culture - Preliminary Resulted 06/26/19 18:20 Urine,Clean Catch Urine Culture - Preliminary NO GROWTH Resulted Pro Scherer MD Jun 27, 2019 12:21
--- NOTE | 2019-06-27 14:00 | NUR ---
NURSE NOTES: US of abdomen was done.
--- NOTE | 2019-06-27 14:30 | NUR ---
NURSE NOTES: Patient tolerated well with his current diet.
--- NOTE | 2019-06-27 14:49 | Diagnostic Imaging Report ---
Indication: Abnormal liver function tests, abnormal renal function tests Technique: Cohen-scale and duplex images of the upper abdomen were obtained Comparison: none Findings: Gallbladder is unremarkable, without stones, wall thickening, nor pericholecystic fluid. Sonographic Trevino's sign is negative. Common bile duct measures 7 mm in diameter. No intrahepatic biliary ductal dilatation. Liver demonstrates slightly coarsened echogenicity. No focal abnormality. Portal vein and hepatic veins are patent. Pancreas is unremarkable. Spleen is unremarkable. Left kidney measures 7.6 cm in length. Right kidney measures 9.6 cm length. Both kidneys demonstrate normal echogenicity. There is no hydronephrosis. No focal abnormality . Non-aneurysmal abdominal aorta . There is a trace right pleural effusion Impression: Somewhat atrophic kidneys bilaterally. Negative for hydronephrosis Negative for gallstones or dilated bile ducts Coarsened hepatic echogenicity, likely indicates hepatocellular disease, otherwise nonspecific Trace right pleural effusion
--- NOTE | 2019-06-27 15:00 | NUR ---
NURSE NOTES: Rn collected urine specimen for urine culture and brought it to lab.
[2019-06-27] MEDS ORDERED: NS 500ML ONE (15:06)
[2019-06-27] MEDS ORDERED: Tubing IV Secondary IV ONE (15:06)
--- NOTE | 2019-06-27 15:16 | History and Physical ---
History of Present Illness General Date patient seen: Jun 27, 2019 Reason for Hospitalization: Altered Mental Status Present Illness HPI 83-year-old Hebrew speaking male, poor historian due to mental status with hypertension and chronic kidney disease, was brought in for altered mental status but his nephew. Patient was found confused, sitting down in the garage. Patient denies any chest pain, shortness of breath. There was no witnessed nausea, vomiting, or diaphoresis. history is limited due to patient's mental status. In the ED as a part of his AMS work up he had a CT head that incidentally showed a possible pituitary adenoma with sellar hyperdense lesion that could be further characterized with MRI ER doctor Spoke with [facility] at 8:50pm, Neurocrit neurologist recommended no acute intervention Spoke with neurosurgeon at 10:[address] King from [facility] ,No acute surgical intervention patient may be characterized further with MRI, may check cortisol, may check thyroid to ensure tumor is not contributing to AMS in addition to sepsis secondary to UTI. Patient received IV fluids and antibiotics and admitted. past medical history: HTN, BPH, CKD, unknown stage, Afib on ?coumadin past surgical history: cataract family history: unable to obtain social history: denies toxic habits. Allergies: Coded Allergies: No Known Allergies (Unverified , 06/26/19) Medication History Scheduled Calcitriol (Calcitriol), 0.25 MCG PO DAILY, (Reported) Carvedilol* (Carvedilol*), 6.25 MG ORAL DAILY, (Reported) Finasteride (Finasteride), 5 MG ORAL DAILY, (Reported) Tamsulosin HCl (Flomax), 0.4 MG ORAL DAILY, (Reported) Warfarin Sod* (Warfarin Sod*), 3 MG ORAL DAILY, (Reported) Patient History Healthcare decision maker Resuscitation status Full Code Advanced Directive on File Review of Systems ROS Narrative ROS unable to obtain due to mental status Physical Exam General Appearance: lethargic, confused Lines, tubes and drains: peripheral HEENT: normocephalic, atraumatic, anicteric, PERRL, EOMI Neck: non-tender, normal alignment, supple Respiratory/Chest: chest wall non-tender, lungs clear, normal breath sounds, no respiratory distress, no accessory muscle use Cardiovascular/Chest: normal peripheral pulses, no gallop/murmur, no JVD, other - rate: IRIR Abdomen: normal bowel sounds, non tender, soft, no organomegaly, no mass Extremities: normal range of motion, non-tender, normal inspection, no calf tenderness Skin Exam: normal pigmentation, warm/dry Neurologic: disoriented, other - moves all extremites Last 24 Hour Vital Signs Date Time Temp Pulse Resp B/P (MAP) Pulse Ox O2 Delivery O2 Flow Rate FiO2 06/27/19 12:00 97.8 70 18 143/71 (95) 98 06/27/19 09:00 Room Air 06/27/19 08:00 97.3 84 18 125/56 (79) 97 06/27/19 04:00 97.7 81 20 128/70 (89) 97 06/27/19 01:21 Room Air 06/27/19 00:25 97.9 94 16 112/53 96 Room Air 06/26/19 18:20 97.9 94 16 112/53 96 Room Air 06/26/19 18:20 98 16 Room Air 06/26/19 17:57 97.9 98 16 112/53 (72) 96 Room Air Intake and Output 06/26/19 06/27/19 19:00 07:00 Intake Total 0 ml Output Total 500 ml Balance 0 ml -500 ml Intake Oral 0 ml Output Urine Total 500 ml Laboratory Tests Test 06/26/19 18:10 06/26/19 18:20 06/26/19 20:23 06/27/19 05:45 Thyroid Stimulating Hormone (TSH) 1.535 uiU/mL (0.358-3.740) Free Thyroxine 0.98 NG/DL (0.76-1.46) Free Triiodothyronine 1.4 pg/mL (2.3-4.2) L Cortisol Pending White Blood Count 9.6 K/UL (4.8-10.8) 13.7 K/UL (4.8-10.8) H Red Blood Count 3.94 M/UL (4.70-6.10) L 3.33 M/UL (4.70-6.10) L Hemoglobin 13.4 G/DL (14.2-18.0) L 11.7 G/DL (14.2-18.0) L Hematocrit 41.9 % (42.0-52.0) L 33.6 % (42.0-52.0) L Mean Corpuscular Volume 106 FL (80-99) H 101 FL (80-99) H Mean Corpuscular Hemoglobin 34.0 PG (27.0-31.0) H 35.0 PG (27.0-31.0) H Mean Corpuscular Hemoglobin Concent 31.9 G/DL (32.0-36.0) L 34.7 G/DL (32.0-36.0) Red Cell Distribution Width 13.2 % (11.6-14.8) 13.0 % (11.6-14.8) Platelet Count 114 K/UL (150-450) L 74 K/UL (150-450) L Mean Platelet Volume 8.5 FL (6.5-10.1) 7.4 FL (6.5-10.1) Neutrophils (%) (Auto) % (45.0-75.0) % (45.0-75.0) Lymphocytes (%) (Auto) % (20.0-45.0) % (20.0-45.0) Monocytes (%) (Auto) % (1.0-10.0) % (1.0-10.0) Eosinophils (%) (Auto) % (0.0-3.0) % (0.0-3.0) Basophils (%) (Auto) % (0.0-2.0) % (0.0-2.0) Differential Total Cells Counted 100 100 Neutrophils % (Manual) 90 % (45-75) H 91 % (45-75) H Lymphocytes % (Manual) 4 % (20-45) L 5 % (20-45) L Monocytes % (Manual) 1 % (1-10) 4 % (1-10) Eosinophils % (Manual) 0 % (0-3) 0 % (0-3) Basophils % (Manual) 0 % (0-2) 0 % (0-2) Band Neutrophils 5 % (0-8) 0 % (0-8) Platelet Estimate Decreased L Decreased L Platelet Morphology Normal Normal Anisocytosis 1+ 1+ Macrocytosis 1+ 1+ Prothrombin Time 21.7 SEC (9.30-11.50) H Prothromb Time International Ratio 2.1 (0.9-1.1) H Activated Partial Thromboplast Time 35 SEC (23-33) H Urine Color Yellow Urine Appearance Slightly cloudy Urine pH 5 (4.5-8.0) Urine Specific [place] 1.020 (1.005-1.035) Urine Protein 2+ (NEGATIVE) H Urine Glucose (UA) Negative (NEGATIVE) Urine Ketones 1+ (NEGATIVE) H Urine Blood 5+ (NEGATIVE) H Urine Nitrite Negative (NEGATIVE) Urine Bilirubin Negative (NEGATIVE) Urine Urobilinogen 1 MG/DL (0.0-1.0) H Urine Leukocyte Esterase 1+ (NEGATIVE) H Urine RBC 20-30 /HPF (0 - 0) H Urine WBC 2-4 /HPF (0 - 0) Urine Squamous Epithelial Cells Occasional /LPF Urine Bacteria Many /HPF (NONE) H Urine Fine Granular Casts 0-2 /LPF (NONE) H Sodium Level 140 MMOL/L (136-145) 141 MMOL/L (136-145) Potassium Level 4.0 MMOL/L (3.5-5.1) 4.3 MMOL/L (3.5-5.1) Chloride Level 104 MMOL/L (98-107) 109 MMOL/L (98-107) H Carbon Dioxide Level 24 MMOL/L (21-32) 27 MMOL/L (21-32) Anion Gap 12 mmol/L (5-15) 5 mmol/L (5-15) Blood Urea Nitrogen 42 mg/dL (7-18) H 39 mg/dL (7-18) H Creatinine 2.1 MG/DL (0.55-1.30) H 1.5 MG/DL (0.55-1.30) H Estimat Glomerular Filtration Rate mL/min (>60) mL/min (>60) Glucose Level 108 MG/DL (74-106) H 109 MG/DL (74-106) H Lactic Acid Level 2.80 mmol/L (0.4-2.0) H 1.90 mmol/L (0.66-2.22) Calcium Level 9.1 MG/DL (8.5-10.1) 8.4 MG/DL (8.5-10.1) L Phosphorus Level 1.8 MG/DL (2.5-4.9) L Magnesium Level 1.9 MG/DL (1.8-2.4) Total Bilirubin 2.1 MG/DL (0.2-1.0) H Direct Bilirubin 0.5 MG/DL (0.0-0.3) H Aspartate Amino Transf (AST/SGOT) 51 U/L (15-37) H Alanine Aminotransferase (ALT/SGPT) 37 U/L (12-78) Alkaline Phosphatase 83 U/L (46-116) Total Creatine Kinase 250 U/L (26-308) Troponin I 0.018 ng/mL (0.000-0.056) Pro-B-Type Natriuretic Peptide 5562 pg/mL (0-125) H Total Protein 7.3 G/DL (6.4-8.2) Albumin 3.6 G/DL (3.4-5.0) Globulin 3.7 g/dL Albumin/Globulin Ratio 1.0 (1.0-2.7) Lipase 106 U/L (73-393) Hemoglobin A1c 6.1 % (4.3-6.0) H Microbiology Date/Time Source Procedure Growth Status 06/26/19 18:25 Blood Blood Culture - Preliminary Resulted 06/26/19 18:10 Blood Blood Culture - Preliminary Resulted 06/26/19 18:20 Urine,Clean Catch Urine Culture - Preliminary NO GROWTH Resulted Height (Feet): 5 Height (Inches): 5.00 Weight (Pounds): 160 Medications Current Medications Medications (Trade) Dose Ordered Sig/Chicho Route PRN Reason Start Time Stop Time Status Last Admin Dose Admin Acetaminophen (Tylenol) 650 mg Q4H PRN ORAL Mild Pain (Pain Scale 1-3) 06/27/19 00:00 07/27/19 00:00 Acetaminophen (Tylenol) 650 mg Q4H PRN ORAL fever 06/27/19 00:00 07/27/19 00:00 Albuterol/ Ipratropium (Albuterol/ Ipratropium) 3 ml Q4HR PRN HHN Shortness of Breath 06/27/19 00:00 07/02/19 00:00 Dextrose (Dextrose 50%) 25 ml Q30M PRN IV Hypoglycemia 06/27/19 00:00 07/27/19 00:00 Dextrose (Dextrose 50%) 50 ml Q30M PRN IV Hypoglycemia 06/27/19 00:00 07/27/19 00:00 Ondansetron HCl (Zofran) 4 mg Q6H PRN IVP Nausea & Vomiting 06/27/19 00:00 07/27/19 00:00 Piperacillin Sod/ Tazobactam Sod 3.375 gm/Dextrose 100 ml @ 25 mls/hr EVERY 8 HOURS IVPB 06/27/19 14:00 07/02/19 13:59 06/27/19 14:05 Polyethylene Glycol (Miralax) 17 gm HSPRN PRN ORAL Constipation 06/27/19 00:00 07/27/19 00:00 Objective Narrative EKG as personally interpreted by me: Atrial fibrillation, rate 103, QTc 434, no acute ST elevations, left axis deviation CT head: 18 x 16 x 15 mm sellar mass, likely but not definitively a meningioma. Consider contrast MRI for better characterization Negative for acute intracranial bleed or mass effect Chronic and age-related changes CXR: as interpreted by radiology .Impression: Cardiomegaly No acute process Assessment/Plan Problem List: (1) Severe sepsis ICD Codes: A41.9 - Sepsis, unspecified organism; R65.20 - Severe sepsis without septic shock SNOMED: 93492638 (2) Acute metabolic encephalopathy ICD Codes: G93.41 - Metabolic encephalopathy SNOMED: 50583298, 782204189 (3) UTI (urinary tract infection) ICD Codes: N39.0 - Urinary tract infection, site not specified SNOMED: 26957635 Qualifiers: Qualified Codes: N30.01 - Acute cystitis with hematuria (4) Atrial fibrillation ICD Codes: I48.91 - Unspecified atrial fibrillation SNOMED: 50674359 (5) GIANLUCA (acute kidney injury) ICD Codes: N17.9 - Acute kidney failure, unspecified SNOMED: 8238139, 87770988 (6) CKD (chronic kidney disease) ICD Codes: N18.9 - Chronic kidney disease, unspecified SNOMED: 397933029 (7) Thrombocytopenia ICD Codes: D69.6 - Thrombocytopenia, unspecified SNOMED: 605765224 (8) Lactic acidosis ICD Codes: E87.2 - Acidosis SNOMED: 78464879 (9) HTN (hypertension) ICD Codes: I10 - Essential (primary) hypertension SNOMED: 94354765 (10) Pre-diabetes ICD Codes: R73.03 - Prediabetes SNOMED: 866353436 (11) Meningioma ICD Codes: D32.9 - Benign neoplasm of meninges, unspecified SNOMED: 426334559 Status: stable Assessment/Plan: 83 year old male presented with altered mental status. #Severe sepsis #Gram-negative bacteremia, etiology is not clear, from UTI or biliary #Acute metabolic encephalopathy # Lactic acidosis Transfer to telemetry IV Zosyn per ID CT abdomen pelvis- no contrast due to GIANLUCA on CKD 2D echo to rule out vegetations trend lactic acid #Atrial fibrillation Atrial fib with RVR. Transfer to tele. Resume coumadin and coreg 6.25 bid #GIANLUCA (acute kidney injury) #CKD (chronic kidney disease) Monitor renal function avoid nephrotoxic medications #Thrombocytopenia continue Coumadin for afib, given high [facility] hematology consult #HTN (hypertension) #Possible CHF Hypotension. Hold off antihypertensive agents at this time. 2D echocardiogram, EF 55% Elevated BNP of more than 5000, possible congestive heart failure. #COPD on albuterol #Pre-diabetes monitor glucose on chemistry #Meningioma incidental. outpatient follow up I spent 70 minutes on this encounter. Greater than 50% spend on counselling and care coordination Rafael West M.D. Jun 27, 2019 15:16
[2019-06-27 16:00] VITALS: BP 122/65
--- NOTE | 2019-06-27 16:09 | NUR ---
NURSE NOTES: RN obtained medication list from [facility] pharmacy and placed the paper in the chart. Unable to hold off Sandie Bennett.
--- NOTE | 2019-06-27 16:10 | Diagnostic Imaging Report ---
Indication: Chest pain Technique: One view of the chest Comparison: none Findings: Patient's heart is enlarged. Patient's hand obscures the left lung base. Atelectatic changes or scarring are seen in the bilateral perihilar regions. Granulomas calcifications are seen in the right midlung. No acute infiltrates, effusions, or congestion. Impression: Cardiomegaly No acute process Evidence of old granulomatous disease
[2019-06-27] MEDS ORDERED: cefTRIAXone 1 GM in NS 55 ML IVPB SCH (19:00)
--- NOTE | 2019-06-27 19:38 | NUR ---
HAND-OFF: Report given to
--- NOTE | 2019-06-27 19:52 | NUR ---
NURSE NOTES: Patient in bed, awake, alert, vietnamese speaking. Kept clean and comfortable. IV site noted. Kept clean and comfortable. No complaint of pain or discomfort noted. Abdomen is soft and non distended. Oriented patient to the room. Provided safe environment. Call light is at bedside. Will continue plan of care.
[2019-06-27 20:00] VITALS: BP 135/67
--- NOTE | 2019-06-27 20:00 | Consultation ---
DATE OF CONSULTATION: 06/27/2019 CARDIOLOGY CONSULTATION CONSULTING PHYSICIAN: Pro Scherer M.D. REFERRING PHYSICIAN: Louis Wright M.D. REASON FOR CONSULTATION: Management of hypertension. HISTORY OF PRESENT ILLNESS: The patient is an 83-year-old Upper Sor[place] gentleman with history of hypertension and chronic kidney disease, was brought in for altered mental status around 5 o'clock in the afternoon. The patient was found sitting down in the garage. He denied any chest pain or shortness of breath. No nausea, vomiting, or diaphoresis. His blood pressure in the ER was 112/53 with a pulse of 98 and respirations of 16. At the time of my evaluation, the patient denies any chest pain or shortness of breath. REVIEW OF SYSTEMS: Negative other than what was mentioned in history of present illness. PAST MEDICAL HISTORY: As mentioned above. FAMILY HISTORY: Noncontributory. SOCIAL HISTORY: He lives at home. Does not smoke or drink alcohol. PHYSICAL EXAMINATION: VITAL SIGNS: Show blood pressure is 124/56, pulse 84, respirations 18, and temperature 97.3. HEAD AND NECK: Showed no JVD. LUNGS: Clear. CARDIOVASCULAR: Shows regular S1 and S2 with no gallop or murmur. ABDOMEN: Soft and nontender. EXTREMITIES: No pitting edema. LABORATORY AND DIAGNOSTIC DATA: His EKG shows sinus tachycardia of 107 with left atrial enlargement and low-voltage QRS. Labs show white count 13.7, hemoglobin 11.7, hematocrit 33, and platelet count 74,000. Sodium is 144, potassium 4.3, BUN of 29, creatinine 1.5, glucose of 109. Troponin is negative. ASSESSMENT AND PLAN: 1. Elevated BNP of more than 5000, possible congestive heart failure. We will order echocardiogram for further evaluation and management. 2. Hypotension. Hold off antihypertensive agents at this time. 3. Gram-negative bacteremia, etiology is not clear, from UTI or biliary source. The patient is on Zosyn per Dr. Leung. I will also get an echocardiogram to rule out any vegetations on the valves to rule out endocarditis. 4. COPD, on albuterol. Thank you very much for allowing me to participate in the care of this patient. Please do not hesitate to contact me for any questions regarding my evaluation. Pro Scherer M.D. DR: GRACE JOB#: [id number] CC:
[2019-06-28] VITALS (7 sets, daily range): BP systolic 120–148; BP diastolic 70–96
--- NOTE | 2019-06-28 06:55 | NUR ---
HAND-OFF: Report given to HANNAH Jackson.
--- NOTE | 2019-06-28 07:00 | NUR ---
NURSE NOTES: Received patient in bed, awake, alert and oriented x4 @ this time. Patient denies any pain or discomfort. Not in respiratory/cardiac distress. Able to urinate without discomfort,no bloody urine. IV is intact, no s/s of infiltration. Patient tolerated with his food.Call light and personnel items within reach.Bed alarm is on. Will continue plan of care.
[2019-06-28 08:22] LABS: HEMOGLOBIN 11.9 G/DL (14.2-18.0); MEAN CORPUSCULAR VOLUME 100 FL (80-99); PLATELET COUNT 74 K/UL (150-450); RED BLOOD COUNT 3.32 M/UL (4.70-6.10); RED CELL DISTRIBUTION WIDTH 12.8 % (11.6-14.8); WHITE BLOOD COUNT 7.8 K/UL (4.8-10.8)
--- NOTE | 2019-06-28 09:00 | NUR ---
NURSE NOTES: Paged Dr. Scherer to inform about EKG result. Awaiting for return call. Patient denies chest pain or SOB @ this time.
[2019-06-28 09:12] LABS: ALANINE AMINOTRANSFERASE 35 U/L (12-78); ALBUMIN 2.8 G/DL (3.4-5.0); ALBUMIN/GLOBULIN RATIO 0.9 (1.0-2.7); ALKALINE PHOSPHATASE 64 U/L (46-116); ANION GAP 9 mmol/L (5-15); ASPARTATE AMINO TRANSFERASE 27 U/L (15-37); BILIRUBIN,TOTAL 1.2 MG/DL (0.2-1.0); BLOOD UREA NITROGEN 29 mg/dL (7-18); CALCIUM 8.5 MG/DL (8.5-10.1); CARBON DIOXIDE 23 MMOL/L (21-32); CHLORIDE 105 MMOL/L (98-107); CREATININE 1.4 MG/DL (0.55-1.30); POTASSIUM 4.3 MMOL/L (3.5-5.1); SODIUM 137 MMOL/L (136-145)
[2019-06-28 09:18] LABS: BILIRUBIN,DIRECT 0.4 MG/DL (0.0-0.3)
--- NOTE | 2019-06-28 11:21 | NUR ---
NURSE NOTES: patient was seen by Dr. Scherer and RN relayed EKG result with order to transfer patient to [facility] and venous duplex of [place]. lower [facility]'s. RN made Dr. Scherer aware that patient took warfarin 3mg daily @ home. houseperson is aware of transfer.
--- NOTE | 2019-06-28 11:24 | Cardiac Electrophysiology PN ---
Assessment/Plan Assessment/Plan 1. Elevated BNP of more than 5000, possible congestive heart failure. echocardiogram EF 55% 2. Hypotension. Hold off antihypertensive agents at this time. 3. Atrial fib with RVR. Transfer to [facility]. Resume coumadin and coreg 6.25 bid 4. Gram-negative bacteremia, etiology is not clear, from UTI or biliary source. The patient is on Zosyn per Dr. Leung. I will also get an echocardiogram to rule out any vegetations on the valves to rule out endocarditis. 5. COPD, on albuterol. Subjective Subjective In atrial fib with RVR around 110 by ECG. No CP Objective Last 24 Hour Vital Signs Date Time Temp Pulse Resp B/P (MAP) Pulse Ox O2 Delivery O2 Flow Rate FiO2 06/28/19 08:58 Room Air 06/28/19 08:00 99.3 98 18 132/76 (94) 98 06/28/19 04:00 98.4 89 18 126/73 (90) 96 06/28/19 00:00 97.5 88 18 130/71 (90) 95 06/27/19 21:00 Room Air 06/27/19 20:00 97.3 100 20 135/67 (89) 96 06/27/19 16:00 98.4 79 18 122/65 (84) 98 06/27/19 12:00 97.8 70 18 143/71 (95) 98 Intake and Output 06/27/19 06/28/19 19:00 07:00 Intake Total 580 ml 245 ml Output Total 650 ml Balance 580 ml -405 ml Intake Oral 480 ml 120 ml IV Total 100 ml 125 ml Output Urine Total 650 ml # Voids 2 3 Laboratory Tests Test 06/28/19 07:25 White Blood Count 7.8 K/UL (4.8-10.8) Red Blood Count 3.32 M/UL (4.70-6.10) L Hemoglobin 11.9 G/DL (14.2-18.0) L Hematocrit 33.0 % (42.0-52.0) L Mean Corpuscular Volume 100 FL (80-99) H Mean Corpuscular Hemoglobin 35.8 PG (27.0-31.0) H Mean Corpuscular Hemoglobin Concent 35.9 G/DL (32.0-36.0) Red Cell Distribution Width 12.8 % (11.6-14.8) Platelet Count 74 K/UL (150-450) L Mean Platelet Volume 7.5 FL (6.5-10.1) Neutrophils (%) (Auto) % (45.0-75.0) Lymphocytes (%) (Auto) % (20.0-45.0) Monocytes (%) (Auto) % (1.0-10.0) Eosinophils (%) (Auto) % (0.0-3.0) Basophils (%) (Auto) % (0.0-2.0) Differential Total Cells Counted 100 Neutrophils % (Manual) 91 % (45-75) H Lymphocytes % (Manual) 6 % (20-45) L Monocytes % (Manual) 3 % (1-10) Eosinophils % (Manual) 0 % (0-3) Basophils % (Manual) 0 % (0-2) Band Neutrophils 0 % (0-8) Platelet Estimate Decreased L Platelet Morphology Normal Macrocytosis 1+ Sodium Level 137 MMOL/L (136-145) Potassium Level 4.3 MMOL/L (3.5-5.1) Chloride Level 105 MMOL/L (98-107) Carbon Dioxide Level 23 MMOL/L (21-32) Anion Gap 9 mmol/L (5-15) Blood Urea Nitrogen 29 mg/dL (7-18) H Creatinine 1.4 MG/DL (0.55-1.30) H Estimat Glomerular Filtration Rate 48.2 mL/min (>60) Glucose Level 109 MG/DL (74-106) H Calcium Level 8.5 MG/DL (8.5-10.1) Total Bilirubin 1.2 MG/DL (0.2-1.0) H Direct Bilirubin 0.4 MG/DL (0.0-0.3) H Aspartate Amino Transf (AST/SGOT) 27 U/L (15-37) Alanine Aminotransferase (ALT/SGPT) 35 U/L (12-78) Alkaline Phosphatase 64 U/L (46-116) Troponin I 0.010 ng/mL (0.000-0.056) Total Protein 6.0 G/DL (6.4-8.2) L Albumin 2.8 G/DL (3.4-5.0) L Globulin 3.2 g/dL Albumin/Globulin Ratio 0.9 (1.0-2.7) L Microbiology Date/Time Source Procedure Growth Status 06/26/19 18:25 Blood Blood Culture - Preliminary Gram Negative Bacillus 1 Resulted 06/26/19 18:10 Blood Blood Culture - Preliminary Gram Negative Bacillus 1 Resulted 06/26/19 18:20 Urine,Clean Catch Urine Culture - Preliminary NO GROWTH AFTER 24 HOURS Resulted Objective HEAD AND NECK: Showed no JVD. LUNGS: Clear. CARDIOVASCULAR: Irregular S1 and S2 with no gallop or murmur. ABDOMEN: Soft and nontender. EXTREMITIES: No pitting edema. Pro Scherer MD Jun 28, 2019 11:24
--- NOTE | 2019-06-28 11:28 | NUR ---
NURSE NOTES: Dr. Scherer ordered coreg 6.25mg Q12hr.
--- NOTE | 2019-06-28 11:56 | NUR ---
RD ASSESSMENT & RECOMMENDATIONS SEE CARE ACTIVITY FOR COMPLETE ASSESSMENT DAILY ESTIMATED NEEDS: Needs based on Cardiac, pulmonary 68.6kg 25-30 kcals/kg 5249-0905 total kcals 1-1.5 g protein/kg 69-103 g total protein 20-25 mL/kg 3317-5525 total fluid mLs NUTRITION DIAGNOSIS: Altered nutrition related lab values r/t clinical status as evidenced by A1C 6.1, elev BUN (29) and creat (1.4), w/ elev BNP (5562). CURRENT DIET: Cardiac ms finely chopped PO DIET RECOMMENDATIONS: LOW NA DIET ADDITIONAL RECOMMENDATIONS: 1) Rec NISS prn, monitor BG at mealtimes. 2) Obtain an accurate standing weight as able OR calibrated bed scale wt 3) DEPUTY [employer]NT eval for appropriate texture, improved po intake 4) Add snacks in b/w meals w/ variable po inake -> glucerna 1 tetra daily
--- NOTE | 2019-06-28 12:34 | NUR ---
NURSE NOTES: Dr. Scherer said ok to resume warfarin with PLT of 74K.
[2019-06-28 13:10] LABS: INR 1.2 (0.9-1.1)
--- NOTE | 2019-06-28 13:15 | NUR ---
NURSE NOTES: Transferred patient to tele room 203. Transfer report given to Anjel. All belongings were checked and accounted for. IV intact, no s/s of infiltration. Venous duplex was done prior to transfer. Endorsed plan of care to the nurse. Skin is intact. No issue while transferring patient. Patient was stable prior to transfer.
--- NOTE | 2019-06-28 13:24 | NUR ---
CASE MANAGEMENT:REVIEW SI;HYPOTENSION. AFIB W/RVR. GRAM NEGATIVE BACTEREMIA. 99.3 99 18 136/96 95% ON RA BUN 29 CR 1.4 T-BILI 1.2 IS;ZOSYN IV Q8 HRS DUO NEB HHN Q4 HRS PRN COREG PO Q12 HRS TRANSFERRED FROM MED SURG TO TELE TELE STATUS PLAN;HOLD ANTIHYPERTENSIVE MEDS, ECG DCP;FROM HOME
[2019-06-28] MEDS ORDERED: Albuterol/Ipratropium 3ml neb HHN PRN (14:15)
[2019-06-28] MEDS ORDERED: Miralax 17gm pkt ORAL PRN (14:15)
--- NOTE | 2019-06-28 15:20 | NUR ---
BEDSIDE SWALLOW EVALUATION COMPLETED POST CHART REVIEW AND INTERVIEW WITH HANNAH CRUZ. PATIENT IS AN 83 YEAR OLD MALE ADMITTED FROM HOME SECONDARY TO A TRANSIENT INCIDENT OF AMS. HIS ADMITTING DIAGNOSIS IS AMS, METABOLIC ENCEPHALOPATHY, PLOF: PATIENT LIVES AT HOME WITH FAMILY. HE ATE A REGULAR TEXTURE DIET PATIENT SEEN AT BEDSIDE MIDDAY. HE WAS ALERT, COOPERATIVE. HIS SON WAS PRESENT TO PROVIDE BACKGROUND INFORMATION PATIENT ASSESSED WITH P.O. TRIALS OF PUREE, THIN (CUP/SIP AND STRAW), AND SOFT SOLIDS. INITIAL IMPRESSION: PATIENT PRESENTS WITH WHAT APPEARS TO BE A FUNCTIONAL OROPHARYNGEAL PHSE OF SWALLOW 2. LINGUAL/LABIAL EFFICACY. NO RESIDUE NOTED ON ORAL MOTOR SURFACE. 3. CLEAR UPPER AIRWAY SOUNDS PRE/POST SWALLOW PER CERVIAL AUSCULTATION RECOMMENDATIONS: 1. CONTINUE CURRENT DIET WITH SUPPLEMENTS BEING BROUGHT IN BY FAMILY TO ACCOMODATE PATIENTS FOOD PREFERENCES 2. NO FURTHER SKILLED ST APPEAR TO BE NEEDED AT THIS TIME.. DYSPHAGIA RISK FACTORS: INCIDENT OF AMS, MILD COGNITIVE DECLINE,
[2019-06-28] MEDS ORDERED: Warfarin Sodium 3mg ORAL SCH ×3 (17:00)
--- NOTE | 2019-06-28 17:15 | Diagnostic Imaging Report ---
Indication: Leg pain Technique: Grayscale and duplex images of the bilateral lower extremity veins Comparison: none Findings: Bilaterally, grayscale and duplex demonstrate no evidence of intraluminal thrombus. Normal phasic Doppler waveforms, demonstrating normal augmentation response and no evidence of valvular insufficiency. Normal compressibility. Impression: Negative for lower extremity deep venous thrombosis bilaterally
--- NOTE | 2019-06-28 18:20 | NUR ---
NURSE NOTES: pt awake alert, no distress. no c/o pain. pt walks slightly unsteady gait. bed alarm on . call light within reach. pt has episodes of 120s afib then back to 90, afib with movement. paged dr Scherer for any orders possible prn.
--- NOTE | 2019-06-28 19:30 | NUR ---
NURSE NOTES: Received report from Anjel Ewing RN. Pt in bed, asleep, in stable condition. no signs of symptoms of pain or distress noted. Bed alarm armed, bed in lowest position, call light within reach. Will continue plan of care and close monitoring.
--- NOTE | 2019-06-28 19:49 | Infectious Diseases Prog Note ---
Assessment/Plan Assessment/Plan Full consult dictated: A) 1. sepsis, gram neg bacteremia, leukocytosis, ? source 2. pmh noted 3. allergies - nkda P) 1. zosyn 2. f/u on blood cultures 3. CT abdomen and pelvis 4. d/w Dr. West 5. will f/u Subjective Allergies: Coded Allergies: No Known Allergies (Unverified , 06/26/19) Objective Vital Signs Last 24 Hour Vital Signs Date Time Temp Pulse Resp B/P (MAP) Pulse Ox O2 Delivery O2 Flow Rate FiO2 06/28/19 16:00 97.8 81 18 145/73 (97) 98 06/28/19 15:26 86 06/28/19 13:30 97.8 99 18 148/96 (113) 98 06/28/19 12:00 97.8 99 18 136/96 (109) 98 06/28/19 08:58 Room Air 06/28/19 08:00 99.3 98 18 132/76 (94) 98 06/28/19 04:00 98.4 89 18 126/73 (90) 96 06/28/19 00:00 97.5 88 18 130/71 (90) 95 06/27/19 21:00 Room Air 06/27/19 20:00 97.3 100 20 135/67 (89) 96 Height (Feet): 5 Height (Inches): 5.00 Weight (Pounds): 151 Microbiology Date/Time Source Procedure Growth Status 06/26/19 18:25 Blood Blood Culture - Preliminary Gram Negative Bacillus 1 Resulted 06/26/19 18:10 Blood Blood Culture - Preliminary Gram Negative Bacillus 1 Resulted 06/26/19 18:20 Urine,Clean Catch Urine Culture - Preliminary NO GROWTH AFTER 24 HOURS Resulted Laboratory Tests Test 06/28/19 07:25 06/28/19 12:35 White Blood Count 7.8 K/UL (4.8-10.8) Red Blood Count 3.32 M/UL (4.70-6.10) L Hemoglobin 11.9 G/DL (14.2-18.0) L Hematocrit 33.0 % (42.0-52.0) L Mean Corpuscular Volume 100 FL (80-99) H Mean Corpuscular Hemoglobin 35.8 PG (27.0-31.0) H Mean Corpuscular Hemoglobin Concent 35.9 G/DL (32.0-36.0) Red Cell Distribution Width 12.8 % (11.6-14.8) Platelet Count 74 K/UL (150-450) L Mean Platelet Volume 7.5 FL (6.5-10.1) Neutrophils (%) (Auto) % (45.0-75.0) Lymphocytes (%) (Auto) % (20.0-45.0) Monocytes (%) (Auto) % (1.0-10.0) Eosinophils (%) (Auto) % (0.0-3.0) Basophils (%) (Auto) % (0.0-2.0) Differential Total Cells Counted 100 Neutrophils % (Manual) 91 % (45-75) H Lymphocytes % (Manual) 6 % (20-45) L Monocytes % (Manual) 3 % (1-10) Eosinophils % (Manual) 0 % (0-3) Basophils % (Manual) 0 % (0-2) Band Neutrophils 0 % (0-8) Platelet Estimate Decreased L Platelet Morphology Normal Macrocytosis 1+ Sodium Level 137 MMOL/L (136-145) Potassium Level 4.3 MMOL/L (3.5-5.1) Chloride Level 105 MMOL/L (98-107) Carbon Dioxide Level 23 MMOL/L (21-32) Anion Gap 9 mmol/L (5-15) Blood Urea Nitrogen 29 mg/dL (7-18) H Creatinine 1.4 MG/DL (0.55-1.30) H Estimat Glomerular Filtration Rate 48.2 mL/min (>60) Glucose Level 109 MG/DL (74-106) H Calcium Level 8.5 MG/DL (8.5-10.1) Total Bilirubin 1.2 MG/DL (0.2-1.0) H Direct Bilirubin 0.4 MG/DL (0.0-0.3) H Aspartate Amino Transf (AST/SGOT) 27 U/L (15-37) Alanine Aminotransferase (ALT/SGPT) 35 U/L (12-78) Alkaline Phosphatase 64 U/L (46-116) Troponin I 0.010 ng/mL (0.000-0.056) Total Protein 6.0 G/DL (6.4-8.2) L Albumin 2.8 G/DL (3.4-5.0) L Globulin 3.2 g/dL Albumin/Globulin Ratio 0.9 (1.0-2.7) L Prothrombin Time 13.0 SEC (9.30-11.50) H Prothromb Time International Ratio 1.2 (0.9-1.1) H Current Medications Medications (Trade) Dose Ordered Sig/Chicho Route PRN Reason Start Time Stop Time Status Last Admin Dose Admin Acetaminophen (Tylenol) 650 mg Q4H PRN ORAL Mild Pain (Pain Scale 1-3) 06/28/19 14:14 07/28/19 14:13 Acetaminophen (Tylenol) 650 mg Q4H PRN ORAL fever 06/28/19 14:14 07/28/19 14:13 Albuterol/ Ipratropium (Albuterol/ Ipratropium) 3 ml Q4H PRN HHN Shortness of Breath 06/28/19 14:15 07/03/19 14:14 Carvedilol (Coreg) 6.25 mg EVERY 12 HOURS ORAL 06/28/19 21:00 07/28/19 20:59 Dextrose (Dextrose 50%) 25 ml Q30M PRN IV Hypoglycemia 06/28/19 14:30 07/27/19 00:00 Dextrose (Dextrose 50%) 50 ml Q30M PRN IV Hypoglycemia 06/28/19 14:30 07/27/19 00:00 Finasteride (Proscar) 5 mg DAILY ORAL 06/29/19 09:00 07/29/19 08:59 Ondansetron HCl (Zofran) 4 mg Q6H PRN IVP Nausea & Vomiting 06/28/19 14:15 07/28/19 14:14 Piperacillin Sod/ Tazobactam Sod 3.375 gm/Dextrose 100 ml @ 25 mls/hr EVERY 8 HOURS IVPB 06/28/19 14:16 07/05/19 14:15 Polyethylene Glycol (Miralax) 17 gm HSPRN PRN ORAL Constipation 06/28/19 14:15 07/28/19 14:14 Tamsulosin HCl (Flomax) 0.4 mg DAILY ORAL 06/29/19 09:00 07/29/19 08:59 Warfarin Sodium (Coumadin per pharmacy) 1 ea DAILY PRN MISC Per rx protocol 06/29/19 09:00 07/28/19 11:29 Warfarin Sodium (Coumadin) 3 mg COUMADIN ORAL 06/28/19 17:00 07/03/19 16:59 06/28/19 17:13 Sohail Leung MD Jun 28, 2019 19:49
[2019-06-28] MEDS ORDERED: Carvedilol 6.25mg Tab ORAL SCH (21:00)
[2019-06-28 21:01] LABS: HEMATOCRIT 35.1 % (42.0-52.0); HEMOGLOBIN 11.4 G/DL (14.2-18.0); MEAN CORPUSCULAR VOLUME 104 FL (80-99); PLATELET COUNT 72 K/UL (150-450); RED BLOOD COUNT 3.37 M/UL (4.70-6.10); RED CELL DISTRIBUTION WIDTH 13.2 % (11.6-14.8); WHITE BLOOD COUNT 5.4 K/UL (4.8-10.8)
[2019-06-28 21:02] LABS: BASOPHILS % (AUTO) 0.2 % (0.0-2.0); EOSINOPHILS % (AUTO) 0.2 % (0.0-3.0); MONOCYTES % (AUTO) 5.8 % (1.0-10.0); NEUTROPHILS % (AUTO) 86.8 % (45.0-75.0)
[2019-06-28 21:16] LABS: ALANINE AMINOTRANSFERASE 46 U/L (12-78); ALBUMIN 2.8 G/DL (3.4-5.0); ALBUMIN/GLOBULIN RATIO 0.9 (1.0-2.7); ALKALINE PHOSPHATASE 67 U/L (46-116); ANION GAP 8 mmol/L (5-15); ASPARTATE AMINO TRANSFERASE 60 U/L (15-37); BILIRUBIN,TOTAL 0.9 MG/DL (0.2-1.0); BLOOD UREA NITROGEN 28 mg/dL (7-18); CALCIUM 8.4 MG/DL (8.5-10.1); CARBON DIOXIDE 26 MMOL/L (21-32); CHLORIDE 103 MMOL/L (98-107); CREATININE 1.2 MG/DL (0.55-1.30); POTASSIUM 4.5 MMOL/L (3.5-5.1); SODIUM 137 MMOL/L (136-145)
[2019-06-28] MEDS: Carvedilol 6.25mg Tab ORAL SCH (22:01)
--- NOTE | 2019-06-28 22:47 | General Progress Note ---
Assessment/Plan Problem List: (1) Severe sepsis ICD Codes: A41.9 - Sepsis, unspecified organism; R65.20 - Severe sepsis without septic shock SNOMED: 48978918 (2) Acute metabolic encephalopathy ICD Codes: G93.41 - Metabolic encephalopathy SNOMED: 81323017, 033795317 (3) UTI (urinary tract infection) ICD Codes: N39.0 - Urinary tract infection, site not specified SNOMED: 18472330 Qualifiers: Qualified Codes: N30.01 - Acute cystitis with hematuria (4) Atrial fibrillation ICD Codes: I48.91 - Unspecified atrial fibrillation SNOMED: 17060108 (5) GIANLUCA (acute kidney injury) ICD Codes: N17.9 - Acute kidney failure, unspecified SNOMED: 2490967, 77050102 (6) CKD (chronic kidney disease) ICD Codes: N18.9 - Chronic kidney disease, unspecified SNOMED: 196587098 (7) Thrombocytopenia ICD Codes: D69.6 - Thrombocytopenia, unspecified SNOMED: 985837986 (8) Lactic acidosis ICD Codes: E87.2 - Acidosis SNOMED: 34640457 (9) HTN (hypertension) ICD Codes: I10 - Essential (primary) hypertension SNOMED: 31099498 (10) Pre-diabetes ICD Codes: R73.03 - Prediabetes SNOMED: 516061889 (11) Meningioma ICD Codes: D32.9 - Benign neoplasm of meninges, unspecified SNOMED: 434804782 Status: stable Assessment/Plan: 83 year old male presented with altered mental status. #Severe sepsis #Gram-negative bacteremia, etiology is not clear, from UTI or biliary #Acute metabolic encephalopathy # Lactic acidosis Transfer to telemetry IV Zosyn per ID CT abdomen pelvis- no contrast due to GIANLUCA on CKD 2D echo to rule out vegetations trend lactic acid #Atrial fibrillation Atrial fib with RVR. Transfer to tele. Resume coumadin and coreg 6.25 bid #GIANLUCA (acute kidney injury) #CKD (chronic kidney disease) Monitor renal function avoid nephrotoxic medications #Thrombocytopenia continue Coumadin for afib, given high [facility] hematology consult #HTN (hypertension) #Possible CHF Hypotension. Hold off antihypertensive agents at this time. 2D echocardiogram, EF 55% Elevated BNP of more than 5000, possible congestive heart failure. #COPD on albuterol #Pre-diabetes monitor glucose on chemistry #Meningioma incidental. outpatient follow up I spent 70 minutes on this encounter. Greater than 50% spend on counselling and care coordination Subjective Date patient seen: Jun 28, 2019 ROS Limited/Unobtainable: No Constitutional: Denies: no symptoms, chills, diaphoresis, fever, malaise, weakness, other HEENT: Denies: no symptoms, eye pain, blurred vision, tearing, double vision, ear pain, ear discharge, nose pain, nose congestion, throat pain, throat swelling, mouth pain, mouth swelling, other Cardiovascular: Denies: no symptoms, chest pain, edema, irregular heart rate, lightheadedness, palpitations, syncope, other Respiratory: Denies: no symptoms, cough, orthopnea, shortness of breath, SOB with excertion, SOB at rest, sputum, stridor, wheezing, other Gastrointestinal/Abdominal: Denies: no symptoms, abdomen distended, abdominal pain, black stools, tarry stools, blood in stool, constipated, diarrhea, difficulty swallowing, nausea, poor appetite, poor fluid intake, rectal bleeding , vomiting, other Genitourinary: Denies: no symptoms, burning, discharge, frequency, flank pain, hematuria, incontinence, pain, urgency, other Neurologic/Psychiatric: Denies: no symptoms, anxiety, depressed, emotional problems, headache, numbness, paresthesia, pre-existing deficit, seizure, tingling, tremors, weakness, other Endocrine: Denies: no symptoms, excessive sweating, flushing, intolerance to cold, intolerance to heat, increased hunger, increased thirst, increased urine, unexplained weight gain, unexplained weight loss, other Hematologic/Lymphatic: Denies: no symptoms, anemia, easy bleeding, easy bruising, other Allergies: Coded Allergies: No Known Allergies (Unverified , 06/26/19) Subjective no acute events. Afib with rvr, transferred to telemetry Objective Last 24 Hour Vital Signs Date Time Temp Pulse Resp B/P (MAP) Pulse Ox O2 Delivery O2 Flow Rate FiO2 06/28/19 22:01 96 120/70 06/28/19 20:00 97.5 82 20 120/70 (87) 96 06/28/19 16:00 97.8 81 18 145/73 (97) 98 06/28/19 15:26 86 06/28/19 13:30 97.8 99 18 148/96 (113) 98 06/28/19 12:00 97.8 99 18 136/96 (109) 98 06/28/19 08:58 Room Air 06/28/19 08:00 99.3 98 18 132/76 (94) 98 06/28/19 04:00 98.4 89 18 126/73 (90) 96 06/28/19 00:00 97.5 88 18 130/71 (90) 95 Intake and Output 06/27/19 06/28/19 19:00 07:00 Intake Total 580 ml 245 ml Output Total 650 ml Balance 580 ml -405 ml Intake Oral 480 ml 120 ml IV Total 100 ml 125 ml Output Urine Total 650 ml # Voids 2 3 Laboratory Tests 06/28/19 07:25: White Blood Count 7.8, Red Blood Count 3.32L, Hemoglobin 11.9L, Hematocrit 33.0L , Mean Corpuscular Volume 100H, Mean Corpuscular Hemoglobin 35.8H, Mean Corpuscular Hemoglobin Concent 35.9, Red Cell Distribution Width 12.8, Platelet Count 74L, Mean Platelet Volume 7.5, Neutrophils (%) (Auto) , Lymphocytes (%) ( Auto) , Monocytes (%) (Auto) , Eosinophils (%) (Auto) , Basophils (%) (Auto) , Differential Total Cells Counted 100, Neutrophils % (Manual) 91H, Lymphocytes % (Manual) 6L, Monocytes % (Manual) 3, Eosinophils % (Manual) 0, Basophils % ( Manual) 0, Band Neutrophils 0, Platelet Estimate DecreasedL, Platelet Morphology Normal, Macrocytosis 1+, Sodium Level 137, Potassium Level 4.3, Chloride Level 105, Carbon Dioxide Level 23, Anion Gap 9, Blood Urea Nitrogen 29H, Creatinine 1.4H, Estimat Glomerular Filtration Rate 48.2, Glucose Level 109H, Calcium Level 8.5, Total Bilirubin 1.2H, Direct Bilirubin 0.4H, Aspartate Amino Transf (AST/SGOT) 27, Alanine Aminotransferase (ALT/SGPT) 35, Alkaline Phosphatase 64, Troponin I 0.010, Total Protein 6.0L, Albumin 2.8L, Globulin 3.2 , Albumin/Globulin Ratio 0.9L 06/28/19 12:35: Prothrombin Time 13.0H, Prothromb Time International Ratio 1.2H 06/28/19 20:38: White Blood Count 5.4, Red Blood Count 3.37L, Hemoglobin 11.4L, Hematocrit 35.1L , Mean Corpuscular Volume 104H, Mean Corpuscular Hemoglobin 33.8H, Mean Corpuscular Hemoglobin Concent 32.4, Red Cell Distribution Width 13.2, Platelet Count 72L, Mean Platelet Volume 11.0H, Neutrophils (%) (Auto) 86.8H, Lymphocytes (%) (Auto) 7.0L, Monocytes (%) (Auto) 5.8, Eosinophils (%) (Auto) 0.2, Basophils (%) (Auto) 0.2, Sodium Level 137, Potassium Level 4.5, Chloride Level 103, Carbon Dioxide Level 26, Anion Gap 8, Blood Urea Nitrogen 28H, Creatinine 1.2, Estimat Glomerular Filtration Rate 57.5, Glucose Level 124H, Calcium Level 8.4L, Total Bilirubin 0.9, Aspartate Amino Transf (AST/SGOT) 60H, Alanine Aminotransferase (ALT/SGPT) 46, Alkaline Phosphatase 67, Total Protein 6.0L, Albumin 2.8L, Globulin 3.2, Albumin/Globulin Ratio 0.9L Height (Feet): 5 Height (Inches): 5.00 Weight (Pounds): 151 Objective General Appearance: alert and awake Lines, tubes and drains: peripheral HEENT: normocephalic, atraumatic, anicteric, PERRL, EOMI Neck: non-tender, normal alignment, supple Respiratory/Chest: chest wall non-tender, lungs clear, normal breath sounds, no respiratory distress, no accessory muscle use Cardiovascular/Chest: normal peripheral pulses, no gallop/murmur, no JVD, other - rate: IRIR Abdomen: normal bowel sounds, non tender, soft, no organomegaly, no mass Extremities: normal range of motion, non-tender, normal inspection, no calf tenderness Skin Exam: normal pigmentation, warm/dry Neurologic: alert and oriented x3, grossly normal Rafael West M.D. Jun 28, 2019 22:47
--- NOTE | 2019-06-28 23:30 | Consultation ---
DATE OF CONSULTATION: 06/28/2019 INFECTIOUS DISEASE CONSULTATION CONSULTING PHYSICIAN: Sohail Leung M.D. ATTENDING PHYSICIAN: Louis Wright M.D. REFERRING PHYSICIAN: Rafael West M.D. REASON FOR CONSULTATION: Gram-negative bacteremia, sepsis, and leukocytosis. CHIEF COMPLAINT: The patient's chief complaint coming to the hospital is altered mental status. HISTORY OF PRESENT ILLNESS: This is an 83-year-old male comes to [facility] with altered mental status. He had elevated white count and has gram-negative bacteremia. Infectious Disease consultation is requested. The patient is on Zosyn. UA and culture unremarkable. Urine culture was negative. UA had 2 to 4 white cells. Abdominal ultrasound showed no obvious cholecystitis. The patient does have acute renal failure. Infectious Disease also requested for antibiotic management. The patient continued on Zosyn. He also has elevated lactic acid level consistent with sepsis. I will order a CT scan without contrast because of the renal failure. MAR was noted. Orders were noted. Notes and records were reviewed. Case was discussed with Dr. West. REVIEW OF SYSTEMS: GENERAL: Main issue, he came in with altered mental status and generalized fatigue. No focal weakness. He is overall more alert today. HEAD AND NECK: No neck pain. No thrush or dysphagia. No headache or neck stiffness. CARDIAC: No chest pain or palpitations. GASTROINTESTINAL: No severe abdominal pain, nausea, vomiting, or diarrhea. GENITOURINARY: No dysuria or frequency. PULMONARY: No shortness of breath. No CVA tenderness. No Crockett. SKIN: No rash. EXTREMITIES: No pain. NEUROLOGICAL: No seizures. PAST MEDICAL HISTORY: The patient's past medical history includes the following, the patient has a past medical history of hypertension, chronic kidney disease, elevated creatinine, BPH, hypertension, chronic kidney disease, and atrial fibrillation, question on Coumadin. He also comes in with altered mental status, encephalopathy, atrial fibrillation, thrombocytopenia, prediabetes, and meningioma history. ALLERGIES: No known drug allergies. No antibiotic allergies. SOCIAL HISTORY: Negative for smoking, alcohol, or drug abuse. FAMILY HISTORY: Noncontributory. MEDICATIONS: Upon reviewing the MAR, he is on following medications, he is on finasteride, Proscar, tamsulosin, morphine, carvedilol, Zosyn, Zofran, polyethylene, acetaminophen, and albuterol treatments. Outside medications noted and reconciliated. PHYSICAL EXAMINATION: VITAL SIGNS: Temperature 97.8 degrees, pulse rate 81, respiratory rate 18, blood pressure 145/73, and saturation 98%. Pulse rate, it has been as high as 100. GENERAL: Alert and responsive, in no acute distress. HEAD AND NECK: Oral exam, no thrush. Eye exam, no icterus. Normocephalic. Neck is supple. HEART: Regular. No gallop or murmur. ABDOMEN: Soft. Positive bowel sounds. Nontender. LUNGS: Clear bilaterally. No rhonchi or rales. SKIN: No rash. MUSCULOSKELETAL: No effusion. Legs are without cellulitis. PERIPHERAL VASCULAR: No cyanosis. GENITOURINARY: No Crockett. LINE SITES: Without phlebitis. NEUROLOGICAL: Intact and nonfocal. Alert and responsive. LABORATORY DATA: Laboratory data is as follows, creatinine 1.4, it was as high as 2.1. Sodium 137. LFTs noted. White count yesterday was 13.7 and hemoglobin 11.7. Today, white count is 7.8 and hemoglobin 11.9. Cultures, the patient has gram-negative bacilli in the blood. Urine culture negative. UA had 2 to 4 white cells. IMAGING STUDIES: Abdominal ultrasound showed no evidence of gallstones. CT scan of the abdomen and pelvis is ordered. Chest x-ray is negative except for old granulomatous process. No acute process. ASSESSMENT AND PLAN: 1. The patient has sepsis, gram-negative bacteremia. Source is unclear at this time. Doubt it is urinary source with UA with 1 to 4 white cells. Urine culture negative. Question of biliary source. Question of other GI source. Continue Zosyn right now for gram-negative coverage. Continue Zosyn for sepsis, gram-negative bacteremia, and elevated white count. Check CT scan of abdomen and pelvis without IV contrast for elevated creatinine. Follow up on cultures and labs. Case discussed with Dr. West. 2. Atrial fibrillation. 3. Acute kidney injury. 4. Chronic renal failure. 5. Anemia. 6. BPH. 7. Hypertension. 8. Blood pressure treatment per primary care team and consultants. 9. Chronic kidney disease. 10. Altered mental status/encephalopathy. 11. Thrombocytopenia. 12. Lactic acidosis and sepsis. 13. Prediabetes. 14. History of meningioma. 15. Continue treatment per primary consultants. 16. No known drug allergies. 17. Social history is negative. 18. Family history is noncontributory. 19. Case was discussed with RN. Sohail Leung M.D. DR: SAAD JOB#: [id number] CC:
[2019-06-29] VITALS: BP 134/73
[2019-06-29 04:00] VITALS: BP 148/76
[2019-06-29 07:31] LABS: HEMATOCRIT 33.6 % (42.0-52.0); HEMOGLOBIN 11.8 G/DL (14.2-18.0); MEAN CORPUSCULAR VOLUME 99 FL (80-99); PLATELET COUNT 70 K/UL (150-450); WHITE BLOOD COUNT 4.9 K/UL (4.8-10.8)
--- NOTE | 2019-06-29 07:31 | NUR ---
NURSE NOTES: Received report from HANNAH Glass. Patient in bed resting, no active s/s cardiac, respiratory distress noticed at this time. Patient AOx2-3, A.fib with HR 77. Patient on room air. IV on right wrist 20G, asymptomatic, patent, intact. Endorsed patient schedule for CT ABD, patient already ate breakfast, will call CT. Bed in lowest position, side rails upx2, call light within reach, bed alarm on. Will continue to monitor.
[2019-06-29 07:34] LABS: INR 1.2 (0.9-1.1)
--- NOTE | 2019-06-29 07:36 | NUR ---
HAND-OFF: Report given to Brian Espinal RN. Pt in stable condition, plan of care endorsed.
[2019-06-29 08:00] VITALS: BP 132/69
[2019-06-29 08:17] LABS: ALANINE AMINOTRANSFERASE 38 U/L (12-78); ALBUMIN 2.8 G/DL (3.4-5.0); ALBUMIN/GLOBULIN RATIO 0.7 (1.0-2.7); ALKALINE PHOSPHATASE 69 U/L (46-116); ANION GAP 8 mmol/L (5-15); ASPARTATE AMINO TRANSFERASE 40 U/L (15-37); BILIRUBIN,TOTAL 0.9 MG/DL (0.2-1.0); BLOOD UREA NITROGEN 24 mg/dL (7-18); CALCIUM 8.9 MG/DL (8.5-10.1); CARBON DIOXIDE 27 MMOL/L (21-32); CHLORIDE 103 MMOL/L (98-107); CREATININE 1.3 MG/DL (0.55-1.30); SODIUM 138 MMOL/L (136-145)
[2019-06-29] MEDS ORDERED: Tamsulosin 0.4mg cap ORAL SCH (09:00)
[2019-06-29] MEDS ORDERED: Warfarin Sodium 3mg ORAL SCH (09:00)
[2019-06-29] MEDS: Carvedilol 6.25mg Tab ORAL SCH ×2 (09:25→21:23)
[2019-06-29] MEDS: Tamsulosin 0.4mg cap ORAL SCH (09:25)
--- NOTE | 2019-06-29 09:43 | General Progress Note ---
Assessment/Plan Problem List: (1) Severe sepsis ICD Codes: A41.9 - Sepsis, unspecified organism; R65.20 - Severe sepsis without septic shock SNOMED: 15083810 (2) E coli bacteremia ICD Codes: R78.81 - Bacteremia; B96.20 - Unspecified Escherichia coli [E. coli ] as the cause of diseases classified elsewhere SNOMED: 063514974197 (3) Acute metabolic encephalopathy ICD Codes: G93.41 - Metabolic encephalopathy SNOMED: 31632346, 658973256 (4) UTI (urinary tract infection) ICD Codes: N39.0 - Urinary tract infection, site not specified SNOMED: 79090155 Qualifiers: Qualified Codes: N30.01 - Acute cystitis with hematuria (5) Atrial fibrillation ICD Codes: I48.91 - Unspecified atrial fibrillation SNOMED: 06496342 (6) GIANLUCA (acute kidney injury) ICD Codes: N17.9 - Acute kidney failure, unspecified SNOMED: 7959263, 21800701 (7) CKD (chronic kidney disease) ICD Codes: N18.9 - Chronic kidney disease, unspecified SNOMED: 127839467 (8) Thrombocytopenia ICD Codes: D69.6 - Thrombocytopenia, unspecified SNOMED: 629472906 (9) Lactic acidosis ICD Codes: E87.2 - Acidosis SNOMED: 26655853 (10) HTN (hypertension) ICD Codes: I10 - Essential (primary) hypertension SNOMED: 97603687 (11) Pre-diabetes ICD Codes: R73.03 - Prediabetes SNOMED: 677615473 (12) Meningioma ICD Codes: D32.9 - Benign neoplasm of meninges, unspecified SNOMED: 139421213 Status: stable Assessment/Plan: 83 year old male presented with altered mental status. #Severe sepsis #Gram-negative bacteremia, E. Coli, beck sensitive , from UTI or biliary #Acute metabolic encephalopathy- resolved # Lactic acidosis-resolved telemetry IV Zosyn per ID, will d/w and deescalate based on c/s CT abdomen pelvis- no contrast due to GIANLUCA on CKD- pending 2D echo to rule out vegetations #Atrial fibrillation Atrial fib with RVR. Transfer to tele. Resume coumadin and coreg 6.25 bid #GIANLUCA (acute kidney injury) #CKD (chronic kidney disease) Monitor renal function avoid nephrotoxic medications #Thrombocytopenia continue Coumadin for afib, given high [facility] hematology consult #HTN (hypertension) #Possible CHF Hypotension. Hold off antihypertensive agents at this time. 2D echocardiogram, EF 55% Elevated BNP of more than 5000, possible congestive heart failure. #COPD on albuterol #Pre-diabetes monitor glucose on chemistry #Meningioma incidental. outpatient follow up I spent 40 minutes on this encounter. Greater than 50% spend on counselling and care coordination time of note may not reflect time of encounter Subjective Allergies: Coded Allergies: No Known Allergies (Unverified , 06/26/19) Subjective no acute events. remains in afib, rate controlled. E.coli bacteremia, pansensitive. CT abdomen pelvis pending. Objective Last 24 Hour Vital Signs Date Time Temp Pulse Resp B/P (MAP) Pulse Ox O2 Delivery O2 Flow Rate FiO2 06/29/19 09:25 84 132/69 06/29/19 08:05 84 16 95 Room Air 21 06/29/19 08:05 95 Room Air 21 06/29/19 08:00 97.0 71 20 132/69 (90) 96 06/29/19 05:16 Room Air 21 06/29/19 04:00 98.1 77 20 148/76 (100) 96 06/29/19 04:00 90 06/29/19 00:00 99.3 91 20 134/73 (93) 96 06/29/19 00:00 92 06/28/19 22:01 96 120/70 06/28/19 20:00 97.5 82 20 120/70 (87) 96 06/28/19 16:00 97.8 81 18 145/73 (97) 98 06/28/19 15:26 86 06/28/19 13:30 97.8 99 18 148/96 (113) 98 06/28/19 12:00 97.8 99 18 136/96 (109) 98 Intake and Output 06/28/19 06/29/19 19:00 07:00 Intake Total 1075 ml Output Total 600 ml Balance 475 ml Intake Oral 1000 ml IV Total 75 ml Output Urine Total 600 ml # Voids 6 2 Laboratory Tests 06/28/19 12:35: Prothrombin Time 13.0H, Prothromb Time International Ratio 1.2H 06/28/19 20:38: White Blood Count 5.4, Red Blood Count 3.37L, Hemoglobin 11.4L, Hematocrit 35.1L , Mean Corpuscular Volume 104H, Mean Corpuscular Hemoglobin 33.8H, Mean Corpuscular Hemoglobin Concent 32.4, Red Cell Distribution Width 13.2, Platelet Count 72L, Mean Platelet Volume 11.0H, Neutrophils (%) (Auto) 86.8H, Lymphocytes (%) (Auto) 7.0L, Monocytes (%) (Auto) 5.8, Eosinophils (%) (Auto) 0.2, Basophils (%) (Auto) 0.2, Sodium Level 137, Potassium Level 4.5, Chloride Level 103, Carbon Dioxide Level 26, Anion Gap 8, Blood Urea Nitrogen 28H, Creatinine 1.2, Estimat Glomerular Filtration Rate 57.5, Glucose Level 124H, Calcium Level 8.4L, Total Bilirubin 0.9, Aspartate Amino Transf (AST/SGOT) 60H, Alanine Aminotransferase (ALT/SGPT) 46, Alkaline Phosphatase 67, Total Protein 6.0L, Albumin 2.8L, Globulin 3.2, Albumin/Globulin Ratio 0.9L 06/29/19 05:50: Prothrombin Time 12.8H, Prothromb Time International Ratio 1.2H, White Blood Count 4.9, Red Blood Count 3.40L, Hemoglobin 11.8L, Hematocrit 33.6L, Mean Corpuscular Volume 99, Mean Corpuscular Hemoglobin 34.8H, Mean Corpuscular Hemoglobin Concent 35.2, Red Cell Distribution Width 12.0, Platelet Count 70L, Mean Platelet Volume 8.1, Neutrophils (%) (Auto) , Lymphocytes (%) (Auto) , Monocytes (%) (Auto) , Eosinophils (%) (Auto) , Basophils (%) (Auto) , Sodium Level 138, Potassium Level 4.0, Chloride Level 103, Carbon Dioxide Level 27, Anion Gap 8, Blood Urea Nitrogen 24H, Creatinine 1.3, Estimat Glomerular Filtration Rate 52.5, Glucose Level 107H, Calcium Level 8.9, Total Bilirubin 0.9 , Aspartate Amino Transf (AST/SGOT) 40H, Alanine Aminotransferase (ALT/SGPT) 38 , Alkaline Phosphatase 69, Total Protein 6.6, Albumin 2.8L, Globulin 3.8, Albumin/Globulin Ratio 0.7L, Neutrophils % (Manual) [Pending], Lymphocytes % ( Manual) [Pending], Platelet Estimate [Pending], Platelet Morphology [Pending], Hepatitis A IgM Antibody [Pending], Hepatitis B Surface Antigen [Pending], Hepatitis B Core IgM Antibody [Pending], Hepatitis C Antibody [Pending], HIV (1& 2) Antibody Rapid [Pending] Height (Feet): 5 Height (Inches): 5.00 Weight (Pounds): 151 Objective General Appearance: alert and awake Lines, tubes and drains: peripheral HEENT: normocephalic, atraumatic, anicteric, PERRL, EOMI Neck: non-tender, normal alignment, supple Respiratory/Chest: chest wall non-tender, lungs clear, normal breath sounds, no respiratory distress, no accessory muscle use Cardiovascular/Chest: normal peripheral pulses, no gallop/murmur, no JVD, other - rate: IRIR Abdomen: normal bowel sounds, non tender, soft, no organomegaly, no mass Extremities: normal range of motion, non-tender, normal inspection, no calf tenderness Skin Exam: normal pigmentation, warm/dry Neurologic: alert and oriented x4, grossly normal Rafael West M.D. Jun 29, 2019 09:42
--- NOTE | 2019-06-29 11:44 | NUR ---
CASE MANAGEMENT:REVIEW ADDENDUM FOR 06/28/19 EKG(+) AFIB W/RVR...TRANSFERRED TO TELEMETRY FOR CONTINUOS CARDIAC MONITORING 06/29/19 SI: E COLI BACTEREMIA. AFIB W/RVR 97.0 71 20 132/69 96% ON RA PLT-70 BUN+24 AST+40 IS: IV ZOSYN Q8HRS COUMADIN 5MG PO X1 PROSCAR PO QD FLOMAX PO QD COREG PO Q12 : NOW ON TELEMETRY DCP: FROM HOME
[2019-06-29 12:00] VITALS: BP 130/86
--- NOTE | 2019-06-29 14:18 | Consultation ---
History of Present Illness General Chief Complaint: Altered Mental Status Present Illness Allergies: Coded Allergies: No Known Allergies (Unverified , 06/26/19) Medication History Scheduled Calcitriol (Calcitriol), 0.25 MCG PO DAILY, (Reported) Carvedilol* (Carvedilol*), 6.25 MG ORAL DAILY, (Reported) Finasteride (Finasteride), 5 MG ORAL DAILY, (Reported) Tamsulosin HCl (Flomax), 0.4 MG ORAL DAILY, (Reported) Warfarin Sod* (Warfarin Sod*), 3 MG ORAL DAILY, (Reported) Patient History Healthcare decision maker Resuscitation status Full Code Advanced Directive on File Physical Exam Last 24 Hour Vital Signs Date Time Temp Pulse Resp B/P (MAP) Pulse Ox O2 Delivery O2 Flow Rate FiO2 06/29/19 12:00 73 06/29/19 12:00 98.6 66 20 130/86 (101) 98 06/29/19 09:25 84 132/69 06/29/19 08:05 84 16 95 Room Air 21 06/29/19 08:05 95 Room Air 21 06/29/19 08:00 88 06/29/19 08:00 97.0 71 20 132/69 (90) 96 06/29/19 05:16 Room Air 21 06/29/19 04:00 98.1 77 20 148/76 (100) 96 06/29/19 04:00 90 06/29/19 00:00 99.3 91 20 134/73 (93) 96 06/29/19 00:00 92 06/28/19 22:01 96 120/70 06/28/19 20:00 97.5 82 20 120/70 (87) 96 06/28/19 16:00 97.8 81 18 145/73 (97) 98 06/28/19 15:26 86 Intake and Output 06/28/19 06/29/19 19:00 07:00 Intake Total 1075 ml Output Total 600 ml Balance 475 ml Intake Oral 1000 ml IV Total 75 ml Output Urine Total 600 ml # Voids 6 2 Laboratory Tests Test 06/28/19 20:38 06/29/19 05:50 White Blood Count 5.4 K/UL (4.8-10.8) 4.9 K/UL (4.8-10.8) Red Blood Count 3.37 M/UL (4.70-6.10) L 3.40 M/UL (4.70-6.10) L Hemoglobin 11.4 G/DL (14.2-18.0) L 11.8 G/DL (14.2-18.0) L Hematocrit 35.1 % (42.0-52.0) L 33.6 % (42.0-52.0) L Mean Corpuscular Volume 104 FL (80-99) H 99 FL (80-99) Mean Corpuscular Hemoglobin 33.8 PG (27.0-31.0) H 34.8 PG (27.0-31.0) H Mean Corpuscular Hemoglobin Concent 32.4 G/DL (32.0-36.0) 35.2 G/DL (32.0-36.0) Red Cell Distribution Width 13.2 % (11.6-14.8) 12.0 % (11.6-14.8) Platelet Count 72 K/UL (150-450) L 70 K/UL (150-450) L Mean Platelet Volume 11.0 FL (6.5-10.1) H 8.1 FL (6.5-10.1) Neutrophils (%) (Auto) 86.8 % (45.0-75.0) H % (45.0-75.0) Lymphocytes (%) (Auto) 7.0 % (20.0-45.0) L % (20.0-45.0) Monocytes (%) (Auto) 5.8 % (1.0-10.0) % (1.0-10.0) Eosinophils (%) (Auto) 0.2 % (0.0-3.0) % (0.0-3.0) Basophils (%) (Auto) 0.2 % (0.0-2.0) % (0.0-2.0) Sodium Level 137 MMOL/L (136-145) 138 MMOL/L (136-145) Potassium Level 4.5 MMOL/L (3.5-5.1) 4.0 MMOL/L (3.5-5.1) Chloride Level 103 MMOL/L (98-107) 103 MMOL/L (98-107) Carbon Dioxide Level 26 MMOL/L (21-32) 27 MMOL/L (21-32) Anion Gap 8 mmol/L (5-15) 8 mmol/L (5-15) Blood Urea Nitrogen 28 mg/dL (7-18) H 24 mg/dL (7-18) H Creatinine 1.2 MG/DL (0.55-1.30) 1.3 MG/DL (0.55-1.30) Estimat Glomerular Filtration Rate 57.5 mL/min (>60) 52.5 mL/min (>60) Glucose Level 124 MG/DL (74-106) H 107 MG/DL (74-106) H Calcium Level 8.4 MG/DL (8.5-10.1) L 8.9 MG/DL (8.5-10.1) Total Bilirubin 0.9 MG/DL (0.2-1.0) 0.9 MG/DL (0.2-1.0) Aspartate Amino Transf (AST/SGOT) 60 U/L (15-37) H 40 U/L (15-37) H Alanine Aminotransferase (ALT/SGPT) 46 U/L (12-78) 38 U/L (12-78) Alkaline Phosphatase 67 U/L (46-116) 69 U/L (46-116) Total Protein 6.0 G/DL (6.4-8.2) L 6.6 G/DL (6.4-8.2) Albumin 2.8 G/DL (3.4-5.0) L 2.8 G/DL (3.4-5.0) L Globulin 3.2 g/dL 3.8 g/dL Albumin/Globulin Ratio 0.9 (1.0-2.7) L 0.7 (1.0-2.7) L Differential Total Cells Counted 100 Neutrophils % (Manual) 81 % (45-75) H Lymphocytes % (Manual) 10 % (20-45) L Monocytes % (Manual) 6 % (1-10) Eosinophils % (Manual) 3 % (0-3) Basophils % (Manual) 0 % (0-2) Band Neutrophils 0 % (0-8) Platelet Estimate Decreased L Platelet Morphology Normal Hypochromasia 1+ Anisocytosis 1+ Prothrombin Time 12.8 SEC (9.30-11.50) H Prothromb Time International Ratio 1.2 (0.9-1.1) H Hepatitis A IgM Antibody Pending Hepatitis B Surface Antigen Pending Hepatitis B Core IgM Antibody Pending Hepatitis C Antibody Pending HIV (1&2) Antibody Rapid Negative (NEGATIVE) Height (Feet): 5 Height (Inches): 5.00 Weight (Pounds): 151 Medications Current Medications Medications (Trade) Dose Ordered Sig/Chicho Route PRN Reason Start Time Stop Time Status Last Admin Dose Admin Acetaminophen (Tylenol) 650 mg Q4H PRN ORAL Mild Pain (Pain Scale 1-3) 06/28/19 14:14 07/28/19 14:13 Acetaminophen (Tylenol) 650 mg Q4H PRN ORAL fever 06/28/19 14:14 07/28/19 14:13 Albuterol/ Ipratropium (Albuterol/ Ipratropium) 3 ml Q4H PRN HHN Shortness of Breath 06/28/19 14:15 07/03/19 14:14 Carvedilol (Coreg) 6.25 mg EVERY 12 HOURS ORAL 06/28/19 21:00 07/28/19 20:59 06/29/19 09:25 Dextrose (Dextrose 50%) 25 ml Q30M PRN IV Hypoglycemia 06/28/19 14:30 07/27/19 00:00 Dextrose (Dextrose 50%) 50 ml Q30M PRN IV Hypoglycemia 06/28/19 14:30 07/27/19 00:00 Finasteride (Proscar) 5 mg DAILY ORAL 06/29/19 09:00 07/29/19 08:59 06/29/19 09:26 Ondansetron HCl (Zofran) 4 mg Q6H PRN IVP Nausea & Vomiting 06/28/19 14:15 07/28/19 14:14 Piperacillin Sod/ Tazobactam Sod 3.375 gm/Dextrose 100 ml @ 25 mls/hr EVERY 8 HOURS IVPB 06/28/19 14:16 07/05/19 14:15 06/29/19 13:53 Polyethylene Glycol (Miralax) 17 gm HSPRN PRN ORAL Constipation 06/28/19 14:15 07/28/19 14:14 Tamsulosin HCl (Flomax) 0.4 mg DAILY ORAL 06/29/19 09:00 07/29/19 08:59 06/29/19 09:25 Warfarin Sodium (Coumadin per pharmacy) 1 ea DAILY PRN MISC Per rx protocol 06/29/19 09:00 07/28/19 11:29 Warfarin Sodium (Coumadin) 5 mg ONCE ORAL 06/29/19 17:00 06/29/19 18:00 Assessment/Plan Assessment/Plan: Hematology Consult REQ MD: Rafael West RFC: Thrombocytopenia, anemia, coagulopathy DOS: 06/29/2019 HPI 83-year-old male history of hypertension history of CKD presents with altered mental status started at 5 PM no known aggravating relieving factors patient was confused, patient was found sitting down in the garage, patient denies any chest pain or shortness of breath however history is limited due to patient's confusion per nephew patient also feels very warm. Thus far, has had extensive workup done here, recs of consultants are noted, initially with afib, with low plts now 70k, coumadin restarted, dw Dr. Scherer Allergies: Coded Allergies: No Known Allergies (Unverified , 06/26/19) Patient History Limited by: medical condition - Confused Past Medical History: see triage record Reviewed Nursing Documentation: PMH: Agreed; PSxH: Agreed Nursing Documentation-PMH Past Medical History: No Stated History Review of Systems All Other Systems: limited - Confused Physical Exam: Vitals: reviewed General: NAD Neck: supple Chest: clear breath sounds bilaterally Cardiovascular: RRR, no s3, s4 Abdomen: soft, nontender, nd Extremities: no cce, normal range of motion Mental: alert Labs: noted Imaging reviewed Assessment and Recs; # Thrombocytopenia - potential causes multifactorial, evaluate liver and viral etiologies to begin, in this case is related likely to cirrhosis v ascites that is a resultant of liver disease that is chronic. --> Hep panel and HIV ordered --> hiv neg --> US abd to evaluate for cirrhosis and hsm ordered --> reviewed --> Peripheral smear ordered to evaluate for blasts /schistocytes --> abx and other meds have been reviewed --> ok for ppx if plt >50k w/ either heparin or lovenox --> Transfuse if Plt < 20k and fever, or if Plt < 10k without fever --> plt 72---> 70k --> continue anticoag if high risk CHASVasc2 # Anemia of chronic disease due to underlying chronic medical issues, multifactorial v Gi bleed --> Anemia workup has been ordered, rule out gi bleed --> No evidence of hemolysis is noted, peripheral smear has been reviewed. --> Hgb goal >7. Transfuse prn. --> Epogen or iron at this time is not particul # Coagulopathy with elev inr/ptt --> as per above --> vitk if needs reversal --> chronic as with liver disease # Altered mental status with UTI (urinary tract infection) --> on abx as per id --> currently zosyn # Potential pituitary adenoma with sellar hyperdense lesion that could be further characterized with MRI --> per endo # Afib --> continue coumadin # Dvt ppx coumadin Appreciate consultation and dw Blaine Pina MD Jun 29, 2019 14:18
--- NOTE | 2019-06-29 15:29 | Cardiac Electrophysiology PN ---
Assessment/Plan Assessment/Plan 1. Elevated BNP of more than 5000, possible congestive heart failure. echocardiogram EF 55% 2. Hypotension. Hold off antihypertensive agents at this time. 3. Atrial fib with RVR. Resume coumadin since it was OK with Dr Guidry since Platelet is only 70s and continue coreg 6.25 bid 4. Gram-negative bacteremia, etiology is not clear, from UTI or biliary source. The patient is on Zosyn per Dr. Leung. Echocardiogram didnt show any vegetations on the valves 5. COPD, on albuterol. 6. Thrombocytopenia 70k. FU Dr Molina DW RN Subjective Subjective In atrial fib with cotrolled rate. No CP or SOB Objective Last 24 Hour Vital Signs Date Time Temp Pulse Resp B/P (MAP) Pulse Ox O2 Delivery O2 Flow Rate FiO2 06/29/19 12:00 73 06/29/19 12:00 98.6 66 20 130/86 (101) 98 06/29/19 09:25 84 132/69 06/29/19 08:05 84 16 95 Room Air 21 06/29/19 08:05 95 Room Air 21 06/29/19 08:00 88 06/29/19 08:00 97.0 71 20 132/69 (90) 96 06/29/19 05:16 Room Air 21 06/29/19 04:00 98.1 77 20 148/76 (100) 96 06/29/19 04:00 90 06/29/19 00:00 99.3 91 20 134/73 (93) 96 06/29/19 00:00 92 06/28/19 22:01 96 120/70 06/28/19 20:00 97.5 82 20 120/70 (87) 96 06/28/19 16:00 97.8 81 18 145/73 (97) 98 06/28/19 15:26 86 Intake and Output 06/28/19 06/29/19 19:00 07:00 Intake Total 1075 ml Output Total 600 ml Balance 475 ml Intake Oral 1000 ml IV Total 75 ml Output Urine Total 600 ml # Voids 6 2 Laboratory Tests Test 06/28/19 20:38 06/29/19 05:50 White Blood Count 5.4 K/UL (4.8-10.8) 4.9 K/UL (4.8-10.8) Red Blood Count 3.37 M/UL (4.70-6.10) L 3.40 M/UL (4.70-6.10) L Hemoglobin 11.4 G/DL (14.2-18.0) L 11.8 G/DL (14.2-18.0) L Hematocrit 35.1 % (42.0-52.0) L 33.6 % (42.0-52.0) L Mean Corpuscular Volume 104 FL (80-99) H 99 FL (80-99) Mean Corpuscular Hemoglobin 33.8 PG (27.0-31.0) H 34.8 PG (27.0-31.0) H Mean Corpuscular Hemoglobin Concent 32.4 G/DL (32.0-36.0) 35.2 G/DL (32.0-36.0) Red Cell Distribution Width 13.2 % (11.6-14.8) 12.0 % (11.6-14.8) Platelet Count 72 K/UL (150-450) L 70 K/UL (150-450) L Mean Platelet Volume 11.0 FL (6.5-10.1) H 8.1 FL (6.5-10.1) Neutrophils (%) (Auto) 86.8 % (45.0-75.0) H % (45.0-75.0) Lymphocytes (%) (Auto) 7.0 % (20.0-45.0) L % (20.0-45.0) Monocytes (%) (Auto) 5.8 % (1.0-10.0) % (1.0-10.0) Eosinophils (%) (Auto) 0.2 % (0.0-3.0) % (0.0-3.0) Basophils (%) (Auto) 0.2 % (0.0-2.0) % (0.0-2.0) Sodium Level 137 MMOL/L (136-145) 138 MMOL/L (136-145) Potassium Level 4.5 MMOL/L (3.5-5.1) 4.0 MMOL/L (3.5-5.1) Chloride Level 103 MMOL/L (98-107) 103 MMOL/L (98-107) Carbon Dioxide Level 26 MMOL/L (21-32) 27 MMOL/L (21-32) Anion Gap 8 mmol/L (5-15) 8 mmol/L (5-15) Blood Urea Nitrogen 28 mg/dL (7-18) H 24 mg/dL (7-18) H Creatinine 1.2 MG/DL (0.55-1.30) 1.3 MG/DL (0.55-1.30) Estimat Glomerular Filtration Rate 57.5 mL/min (>60) 52.5 mL/min (>60) Glucose Level 124 MG/DL (74-106) H 107 MG/DL (74-106) H Calcium Level 8.4 MG/DL (8.5-10.1) L 8.9 MG/DL (8.5-10.1) Total Bilirubin 0.9 MG/DL (0.2-1.0) 0.9 MG/DL (0.2-1.0) Aspartate Amino Transf (AST/SGOT) 60 U/L (15-37) H 40 U/L (15-37) H Alanine Aminotransferase (ALT/SGPT) 46 U/L (12-78) 38 U/L (12-78) Alkaline Phosphatase 67 U/L (46-116) 69 U/L (46-116) Total Protein 6.0 G/DL (6.4-8.2) L 6.6 G/DL (6.4-8.2) Albumin 2.8 G/DL (3.4-5.0) L 2.8 G/DL (3.4-5.0) L Globulin 3.2 g/dL 3.8 g/dL Albumin/Globulin Ratio 0.9 (1.0-2.7) L 0.7 (1.0-2.7) L Differential Total Cells Counted 100 Neutrophils % (Manual) 81 % (45-75) H Lymphocytes % (Manual) 10 % (20-45) L Monocytes % (Manual) 6 % (1-10) Eosinophils % (Manual) 3 % (0-3) Basophils % (Manual) 0 % (0-2) Band Neutrophils 0 % (0-8) Platelet Estimate Decreased L Platelet Morphology Normal Hypochromasia 1+ Anisocytosis 1+ Prothrombin Time 12.8 SEC (9.30-11.50) H Prothromb Time International Ratio 1.2 (0.9-1.1) H Hepatitis A IgM Antibody Pending Hepatitis B Surface Antigen Pending Hepatitis B Core IgM Antibody Pending Hepatitis C Antibody Pending HIV (1&2) Antibody Rapid Negative (NEGATIVE) Microbiology Date/Time Source Procedure Growth Status 06/26/19 18:25 Blood Blood Culture - Final Escherichia Coli Complete 06/26/19 18:10 Blood Blood Culture - Final Escherichia Coli Complete 06/26/19 18:20 Urine,Clean Catch Urine Culture - Final NO GROWTH AFTER 48 HOURS Complete Objective HEAD AND NECK: Showed no JVD. LUNGS: Clear. CARDIOVASCULAR: Irregular S1 and S2 with no gallop or murmur. ABDOMEN: Soft and nontender. EXTREMITIES: No pitting edema. Pro Scherer MD Jun 29, 2019 15:29
--- NOTE | 2019-06-29 15:30 | NUR ---
NURSE NOTES: Dr. Scherer at the nursing station, clarified regard Coumadin. Per Dr. Gilmer davis pe Hematology, okay to give. Per Dr. Weathers's note, okay to continue, Dr. Scherer made aware, okay to administer Coumadin.
[2019-06-29 16:00] VITALS: BP 109/62
--- NOTE | 2019-06-29 16:14 | NUR ---
*-* INSURANCE *-* ALL CLINICALS AND REVIEWS HAVE BEEN FAXED TO: [facility] [employer] # YET # [phone] FAX# [phone] REVIEWS/CLINICALS
--- NOTE | 2019-06-29 16:46 | Diagnostic Imaging Report ---
Indication: Abdominal pain, history chronic kidney disease Technique: Spiral acquisitions obtained through the abdomen and pelvis. Patient given oral contrast. No IV contrast utilized, per referring physician request.. Multiplanar reconstructions were generated. Total dose length product 224 mGycm. CTDIvol(s) 4 mGy. Dose reduction achieved using automated exposure control Comparison: No comparison CT scans. Reference made to abdominal sonogram 06/27/2019 Findings: The appendix is markedly dilated, measuring up to 15 mm transverse diameter. There is increased attenuation of the periappendiceal fat. There are equivocally 2 tiny gas bubbles adjacent to it, although suspect that these are artifacts. No loculated periappendiceal fluid is evident. Ingested contrast has only traversed a portion of the small bowel. However, there is no small bowel distention or small bowel wall thickening demonstrated. No evidence of colonic diverticulosis or diverticulitis. No free or loculated intraperitoneal gas or fluid is evident. Distal esophagus, stomach, duodenum are unremarkable. A large unilocular cystic mass is seen in the upper pelvis. This measures 10 x 6.4 x 7.5 cm in diameter. Immediately cephalad to this is a mass that measures just slightly higher than fluid attenuation, measures 1.7 cm. A small 2 x 0.7 cm structure is seen immediately anterior to it. However, the mass does not appear to be contiguous with any organs. It does appear to be adjacent to the sigmoid colon but nonetheless appears to be separate from it. It is also adjacent to the anterior upper sacrum There is a small fat-containing direct right inguinal hernia. Lack of IV contrast limits assessment of the solid organs. The gallbladder is distended. No definite gallstones. The liver is grossly unremarkable. The pancreas is somewhat atrophic. The spleen is borderline enlarged, measuring 14 cm long axis dimension. The adrenals are unremarkable. Left kidney is somewhat atrophic. There are prominent but not frankly enlarged retroperitoneal nodes. The prostate is slightly prominent. The bladder is unremarkable. The heart is enlarged. There is a small amount of pericardial fluid. There are dependent posterior pulmonary atelectatic changes and possibly some pulmonary parenchymal scarring. Granulomas calcification is seen at the left lung base. The bones demonstrate degenerative spondylosis changes. There is grade 1-2 spondylolisthesis of L4 on L5 without evidence of pars defect. There is secondary degenerative change Impression: Findings consistent with acute appendicitis. There are questionably 2 small adjacent gas bubbles which are more likely artifactual than real but could indicate focal microperforation. However, there is no evidence of periappendiceal abscess. 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 Not definitely related to any adjacent organs. The possibility of unusual cystic neoplasm should also be considered. Adjacent 1.7 cm mesenteric root mass demonstrating nonspecific soft tissue attenuation. Likewise nonspecific, neoplasm not excludable Nonspecific prominent retroperitoneal nodes Borderline splenomegaly Atrophic left kidney Grade 1-2 spondylolisthesis of L4 on L5 without evidence of spondylolysis. 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 Love at the time of interpretation The CT scanner at [facility] is accredited by the [employer] and the scans are performed using protocols designed to limit radiation exposure to as low as reasonably achievable to attain images of sufficient resolution adequate for diagnostic evaluation.
[2019-06-29] MEDS ORDERED: Warfarin Sodium 5mg ORAL SCH (17:00)
--- NOTE | 2019-06-29 19:04 | NUR ---
HAND-OFF: Report given to HANNAH Chen.
--- NOTE | 2019-06-29 19:05 | NUR ---
NURSE NOTES: Received patient from Brian YOUNG. Patient in bed, on room air, no signs of respiratory distress. Bed in low position, locked, bed alarm on, call light within reach.
--- NOTE | 2019-06-29 19:59 | Pre-Procedure Note/Attestation ---
Pre-Procedure Note/Attestation Complete Prior to Procedure Procedure Narrative: laparoscopic appendectomy possible open, possible biopsy of mesentery mass, possible drainage of abdominal cystic fluid collection Indications for Procedure Pre-Operative Diagnosis: acute appendicitis, abdominal cystic fluid collection, mesenteric mass Attestation I attest that I discussed the nature of the procedure; its benefits; risks and complications; and alternatives (and the risks and benefits of such alternatives ), prior to the procedure, with the patient (or the patient's legal entry level sales representative). I attest that, if there was a reasonable possibility of needing a blood transfusion, the patient (or the patient's legal entry level sales representative) was given the [place] [employer] [facility] standardized written summary, pursuant to the [place] Blood Safety Act ([place] Health and Safety Code # 1645, as amended). I attest that I re-evaluated the patient just prior to the surgery and that there has been no change in the patient's H&P, except as documented below: Shemar Wright Jun 29, 2019 19:59
[2019-06-29 20:00] VITALS: BP 112/55
--- NOTE | 2019-06-29 20:00 | NUR ---
NURSE NOTES: Spoke with Dr. Adriana NPO after midnight for surgery tomorrow. He will attempt to contact family and discuss with other physicians on the case.
--- NOTE | 2019-06-29 20:15 | Consultation ---
History of Present Illness General Date patient seen: Jun 29, 2019 Reason for Hospitalization: Altered Mental Status Present Illness HPI This is a very pleasant 83-year-old male who presented to [facility] for altered mental status after being found at home. He was noted to be bacteremic and worked up by medical infectious disease team with recent CT scan identifying acute appendicitis. Surgery was called to evaluate and assist with care. Patient seen, patient evaluate, chart reviewed. Patient states he is okay and on examination is identified to have right lower quadrant tenderness. Once palpated he states "pain there". No nausea vomiting fever chills. Leukocytosis resolving labs abnormal. Recently started on Coumadin for A. fib. INR elevated. Furthermore on CT scan identified to have a cystic mass as well as a mesenteric mass. Allergies: Coded Allergies: No Known Allergies (Unverified , 06/26/19) Medication History Scheduled Calcitriol (Calcitriol), 0.25 MCG PO DAILY, (Reported) Carvedilol* (Carvedilol*), 6.25 MG ORAL DAILY, (Reported) Finasteride (Finasteride), 5 MG ORAL DAILY, (Reported) Tamsulosin HCl (Flomax), 0.4 MG ORAL DAILY, (Reported) Warfarin Sod* (Warfarin Sod*), 3 MG ORAL DAILY, (Reported) Patient History Limited by: medical condition History Provided By: Patient, Family Member, Medical Record, PMD Healthcare decision maker Resuscitation status Full Code Advanced Directive on File Past Medical/Surgical History Past Medical/Surgical History: (1) Sepsis (2) UTI (urinary tract infection) (3) Altered mental status (4) Atrial fibrillation (5) Lactic acidosis (6) Meningioma (7) Thrombocytopenia (8) HTN (hypertension) (9) Pre-diabetes (10) Severe sepsis (11) CKD (chronic kidney disease) (12) GIANLUCA (acute kidney injury) (13) Acute metabolic encephalopathy (14) E coli bacteremia Review of Systems Review of Symptoms General ROS: no weight loss or fever Psychological ROS: no depression or mood changes, no memory loss Ophthalmic ROS: no visual changes or eye irritation ENT ROS: no nasal congestion, hearing loss, dizziness Allergy and Immunology ROS: no allergic symptoms or urticaria Hematological and Lymphatic ROS: no swollen glands, unusual bleeding or bruising Endocrine ROS: no polyuria, polydipsia, weight changes, temperature intolerance Respiratory ROS: no cough, shortness of breath, or wheezing Cardiovascular ROS: no chest pain or dyspnea on exertion Gastrointestinal ROS: denies abdominal pain, bright red blood in stool. Musculoskeletal ROS: no myalgias or arthralgias Neurological ROS: no TIA or stroke symptoms Dermatological ROS: no new or changing skin lesions, rashes or pruritis Physical Exam Physical Exam General appearance: alert, cooperative, no distress, appears stated age Head: Normocephalic, without obvious abnormality, atraumatic Eyes: conjunctivae/corneas clear. PERRL, EOM's intact. Fundi benign Throat: Lips, mucosa, and tongue normal. Teeth and gums normal Neck: supple, symmetrical, trachea midline, no adenopathy, thyroid: not enlarged, symmetric, no tenderness/mass/nodules, no carotid bruit and no JVD Lungs: clear to auscultation bilaterally Heart: regular rate and rhythm, S1, S2 normal, no murmur, click, rub or gallop Abdomen: soft, right lower quadrant abdominal tenderness rebound voluntary guarding-tender. Bowel sounds normal. No masses, no organomegaly Extremities: extremities normal, atraumatic, no cyanosis or edema Pulses: 2+ and symmetric Skin: Skin color, texture, turgor normal. No rashes or lesions Neurologic: Grossly normal Last 24 Hour Vital Signs Date Time Temp Pulse Resp B/P (MAP) Pulse Ox O2 Delivery O2 Flow Rate FiO2 06/29/19 16:00 98.6 85 18 109/62 (78) 98 06/29/19 16:00 86 06/29/19 12:00 73 06/29/19 12:00 98.6 66 20 130/86 (101) 98 06/29/19 09:25 84 132/69 06/29/19 08:05 84 16 95 Room Air 21 06/29/19 08:05 95 Room Air 21 06/29/19 08:00 88 06/29/19 08:00 97.0 71 20 132/69 (90) 96 06/29/19 05:16 Room Air 21 06/29/19 04:00 98.1 77 20 148/76 (100) 96 06/29/19 04:00 90 06/29/19 00:00 99.3 91 20 134/73 (93) 96 06/29/19 00:00 92 06/28/19 22:01 96 120/70 Intake and Output 06/28/19 06/29/19 19:00 07:00 Intake Total 1075 ml Output Total 600 ml Balance 475 ml Intake Oral 1000 ml IV Total 75 ml Output Urine Total 600 ml # Voids 6 2 Laboratory Tests Test 06/28/19 20:38 06/29/19 05:50 White Blood Count 5.4 K/UL (4.8-10.8) 4.9 K/UL (4.8-10.8) Red Blood Count 3.37 M/UL (4.70-6.10) L 3.40 M/UL (4.70-6.10) L Hemoglobin 11.4 G/DL (14.2-18.0) L 11.8 G/DL (14.2-18.0) L Hematocrit 35.1 % (42.0-52.0) L 33.6 % (42.0-52.0) L Mean Corpuscular Volume 104 FL (80-99) H 99 FL (80-99) Mean Corpuscular Hemoglobin 33.8 PG (27.0-31.0) H 34.8 PG (27.0-31.0) H Mean Corpuscular Hemoglobin Concent 32.4 G/DL (32.0-36.0) 35.2 G/DL (32.0-36.0) Red Cell Distribution Width 13.2 % (11.6-14.8) 12.0 % (11.6-14.8) Platelet Count 72 K/UL (150-450) L 70 K/UL (150-450) L Mean Platelet Volume 11.0 FL (6.5-10.1) H 8.1 FL (6.5-10.1) Neutrophils (%) (Auto) 86.8 % (45.0-75.0) H % (45.0-75.0) Lymphocytes (%) (Auto) 7.0 % (20.0-45.0) L % (20.0-45.0) Monocytes (%) (Auto) 5.8 % (1.0-10.0) % (1.0-10.0) Eosinophils (%) (Auto) 0.2 % (0.0-3.0) % (0.0-3.0) Basophils (%) (Auto) 0.2 % (0.0-2.0) % (0.0-2.0) Sodium Level 137 MMOL/L (136-145) 138 MMOL/L (136-145) Potassium Level 4.5 MMOL/L (3.5-5.1) 4.0 MMOL/L (3.5-5.1) Chloride Level 103 MMOL/L (98-107) 103 MMOL/L (98-107) Carbon Dioxide Level 26 MMOL/L (21-32) 27 MMOL/L (21-32) Anion Gap 8 mmol/L (5-15) 8 mmol/L (5-15) Blood Urea Nitrogen 28 mg/dL (7-18) H 24 mg/dL (7-18) H Creatinine 1.2 MG/DL (0.55-1.30) 1.3 MG/DL (0.55-1.30) Estimat Glomerular Filtration Rate 57.5 mL/min (>60) 52.5 mL/min (>60) Glucose Level 124 MG/DL (74-106) H 107 MG/DL (74-106) H Calcium Level 8.4 MG/DL (8.5-10.1) L 8.9 MG/DL (8.5-10.1) Total Bilirubin 0.9 MG/DL (0.2-1.0) 0.9 MG/DL (0.2-1.0) Aspartate Amino Transf (AST/SGOT) 60 U/L (15-37) H 40 U/L (15-37) H Alanine Aminotransferase (ALT/SGPT) 46 U/L (12-78) 38 U/L (12-78) Alkaline Phosphatase 67 U/L (46-116) 69 U/L (46-116) Total Protein 6.0 G/DL (6.4-8.2) L 6.6 G/DL (6.4-8.2) Albumin 2.8 G/DL (3.4-5.0) L 2.8 G/DL (3.4-5.0) L Globulin 3.2 g/dL 3.8 g/dL Albumin/Globulin Ratio 0.9 (1.0-2.7) L 0.7 (1.0-2.7) L Differential Total Cells Counted 100 Neutrophils % (Manual) 81 % (45-75) H Lymphocytes % (Manual) 10 % (20-45) L Monocytes % (Manual) 6 % (1-10) Eosinophils % (Manual) 3 % (0-3) Basophils % (Manual) 0 % (0-2) Band Neutrophils 0 % (0-8) Platelet Estimate Decreased L Platelet Morphology Normal Hypochromasia 1+ Anisocytosis 1+ Prothrombin Time 12.8 SEC (9.30-11.50) H Prothromb Time International Ratio 1.2 (0.9-1.1) H Hepatitis A IgM Antibody Pending Hepatitis B Surface Antigen Pending Hepatitis B Core IgM Antibody Pending Hepatitis C Antibody Pending HIV (1&2) Antibody Rapid Negative (NEGATIVE) Height (Feet): 5 Height (Inches): 5.00 Weight (Pounds): 151 Medications Current Medications Medications (Trade) Dose Ordered Sig/Chicho Route PRN Reason Start Time Stop Time Status Last Admin Dose Admin Acetaminophen (Tylenol) 650 mg Q4H PRN ORAL Mild Pain (Pain Scale 1-3) 06/28/19 14:14 07/28/19 14:13 Acetaminophen (Tylenol) 650 mg Q4H PRN ORAL fever 06/28/19 14:14 07/28/19 14:13 Albuterol/ Ipratropium (Albuterol/ Ipratropium) 3 ml Q4H PRN HHN Shortness of Breath 06/28/19 14:15 07/03/19 14:14 Carvedilol (Coreg) 6.25 mg EVERY 12 HOURS ORAL 06/28/19 21:00 07/28/19 20:59 06/29/19 09:25 Dextrose (Dextrose 50%) 25 ml Q30M PRN IV Hypoglycemia 06/28/19 14:30 07/27/19 00:00 Dextrose (Dextrose 50%) 50 ml Q30M PRN IV Hypoglycemia 06/28/19 14:30 07/27/19 00:00 Finasteride (Proscar) 5 mg DAILY ORAL 06/29/19 09:00 07/29/19 08:59 06/29/19 09:26 Ondansetron HCl (Zofran) 4 mg Q6H PRN IVP Nausea & Vomiting 06/28/19 14:15 07/28/19 14:14 Piperacillin Sod/ Tazobactam Sod 3.375 gm/Dextrose 100 ml @ 25 mls/hr EVERY 8 HOURS IVPB 06/28/19 14:16 07/05/19 14:15 06/29/19 13:53 Polyethylene Glycol (Miralax) 17 gm HSPRN PRN ORAL Constipation 06/28/19 14:15 07/28/19 14:14 Tamsulosin HCl (Flomax) 0.4 mg DAILY ORAL 06/29/19 09:00 07/29/19 08:59 06/29/19 09:25 Assessment/Plan Problem List: (1) Acute appendicitis Assessment & Plan: This is a 83-year-old male with acute appendicitis. Afebrile, hemodynamic stable, A. fib with RVR on Coumadin, shift neutrophil, mesenteric mass, abdominal cystic fluid collection. On examination patient is tender in the right lower quadrant. Patient is bacteremic. N.p.o. IV antibiotics IV fluids Hold anticoagulation will discuss with cardiology Consent Once stable will take to the operating room for diagnostic laparoscopy, appendectomy, possible biopsy versus evacuation of fluid cystic, possible mesenteric biopsy I discussed with patient in detail the above findings as well as the patient's nephew who is his next of kin close person to him right chain. I explained the above. Consent was obtained Thank you for let me participate in patient's care ICD Codes: K35.80 - Unspecified acute appendicitis SNOMED: 54378684 (2) Mesenteric mass Assessment & Plan: Findings: The appendix is markedly dilated, measuring up to 15 mm transverse diameter. There is increased attenuation of the periappendiceal fat. There are equivocally 2 tiny gas bubbles adjacent to it, although suspect that these are artifacts. No loculated periappendiceal fluid is evident. Ingested contrast has only traversed a portion of the small bowel. However, there is no small bowel distention or small bowel wall thickening demonstrated. No evidence of colonic diverticulosis or diverticulitis. No free or loculated intraperitoneal gas or fluid is evident. Distal esophagus, stomach, duodenum are unremarkable. A large unilocular cystic mass is seen in the upper pelvis. This measures 10 x 6.4 x 7.5 cm in diameter. Immediately cephalad to this is a mass that measures just slightly higher than fluid attenuation, measures 1.7 cm. A small 2 x 0.7 cm structure is seen immediately anterior to it. However, the mass does not appear to be contiguous with any organs. It does appear to be adjacent to the sigmoid colon but nonetheless appears to be separate from it. It is also adjacent to the anterior upper sacrum There is a small fat-containing direct right inguinal hernia. Lack of IV contrast limits assessment of the solid organs. The gallbladder is distended. No definite gallstones. The liver is grossly unremarkable. The pancreas is somewhat atrophic. The spleen is borderline enlarged, measuring 14 cm long axis dimension. The adrenals are unremarkable. Left kidney is somewhat atrophic. There are prominent but not frankly enlarged retroperitoneal nodes. The prostate is slightly prominent. The bladder is unremarkable. The heart is enlarged. There is a small amount of pericardial fluid. There are dependent posterior pulmonary atelectatic changes and possibly some pulmonary parenchymal scarring. Granulomas calcification is seen at the left lung base. The bones demonstrate degenerative spondylosis changes. There is grade 1-2 spondylolisthesis of L4 on L5 without evidence of pars defect. There is secondary degenerative change Impression: Findings consistent with acute appendicitis. There are questionably 2 small adjacent gas bubbles which are more likely artifactual than real but could indicate focal microperforation. However, there is no evidence of periappendiceal abscess. 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 Not definitely related to any adjacent organs. The possibility of unusual cystic neoplasm should also be considered. Adjacent 1.7 cm mesenteric root mass demonstrating nonspecific soft tissue attenuation. Likewise nonspecific, neoplasm not excludable Nonspecific prominent retroperitoneal nodes Borderline splenomegaly Atrophic left kidney Grade 1-2 spondylolisthesis of L4 on L5 without evidence of spondylolysis. There is associated secondary degenerative change Cardiomegaly Pericardial effusion ICD Codes: K63.89 - Other specified diseases of intestine SNOMED: 383925472 (3) Abdominal cyst SNOMED: 958395761 (4) Sepsis ICD Codes: A41.9 - Sepsis, unspecified organism SNOMED: 68601658 Qualifiers: Qualified Codes: A41.9 - Sepsis, unspecified organism; R65.20 - Severe sepsis without septic shock; G93.40 - Encephalopathy, unspecified Shemar Wright Jun 29, 2019 20:15
[2019-06-29] MEDS ORDERED: Phytonadione 10 MG in D5W 55 ML IVPB SCH (22:00)
[2019-06-30] VITALS (12 sets, daily range): BP systolic 140–177; BP diastolic 74–107
--- NOTE | 2019-06-30 | NUR ---
NURSE NOTES: Patient NPO, signs placed at bedside and on the door. Removed all food items from the table.
--- NOTE | 2019-06-30 06:08 | Hematology/Onc Progress Note ---
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 Not definitely related to any adjacent organs. The possibility of unusual cystic neoplasm should also be considered. Adjacent 1.7 cm mesenteric root mass demonstrating nonspecific soft tissue attenuation. Likewise nonspecific, neoplasm not excludable --> dw surgery, will need lap, mesenteric biopsy, rule out malignancy --> hold off anticoag until procedure is done --> hold off on lovenox sq # Thrombocytopenia - potential causes multifactorial, evaluate liver and viral etiologies to begin, in this case is related likely to cirrhosis v ascites that is a resultant of liver disease that is chronic. --> Hep panel and HIV ordered --> hiv neg --> US abd to evaluate for cirrhosis and hsm ordered --> reviewed --> Peripheral smear ordered to evaluate for blasts /schistocytes --> abx and other meds have been reviewed --> ok for ppx if plt >50k w/ either heparin or lovenox --> Transfuse if Plt < 20k and fever, or if Plt < 10k without fever --> plt 72--->70k --> continue anticoag if high risk CHASVasc2 # Anemia of chronic disease due to underlying chronic medical issues, multifactorial v Gi bleed --> Anemia workup has been ordered, rule out gi bleed --> No evidence of hemolysis is noted, peripheral smear has been reviewed. --> Hgb goal >7. Transfuse prn. --> Epogen or iron at this time is not particul # Coagulopathy with elev inr/ptt --> as per above --> vitk if needs reversal --> chronic as with liver disease # Altered mental status with UTI (urinary tract infection) --> on abx as per id --> currently zosyn # Potential pituitary adenoma with sellar hyperdense lesion that could be further characterized with MRI --> per endo # Afib --> holding coumadin # Dvt ppx hold coumadin Appreciate consultation and dw Rn Subjective Allergies: Coded Allergies: No Known Allergies (Unverified , 06/26/19) Subjective 06/30: no major changes, off lovenox for now, pending procedure, dr Dr. Wright Objective Objective Current Medications Medications (Trade) Dose Ordered Sig/Chicho Route PRN Reason Start Time Stop Time Status Last Admin Dose Admin Acetaminophen (Tylenol) 650 mg Q4H PRN ORAL Mild Pain (Pain Scale 1-3) 06/28/19 14:14 07/28/19 14:13 Acetaminophen (Tylenol) 650 mg Q4H PRN ORAL fever 06/28/19 14:14 07/28/19 14:13 Albuterol/ Ipratropium (Albuterol/ Ipratropium) 3 ml Q4H PRN HHN Shortness of Breath 06/28/19 14:15 07/03/19 14:14 Carvedilol (Coreg) 6.25 mg EVERY 12 HOURS ORAL 06/28/19 21:00 07/28/19 20:59 06/29/19 21:23 Dextrose (Dextrose 50%) 25 ml Q30M PRN IV Hypoglycemia 06/28/19 14:30 07/27/19 00:00 Dextrose (Dextrose 50%) 50 ml Q30M PRN IV Hypoglycemia 06/28/19 14:30 07/27/19 00:00 Finasteride (Proscar) 5 mg DAILY ORAL 06/29/19 09:00 07/29/19 08:59 06/29/19 09:26 Ondansetron HCl (Zofran) 4 mg Q6H PRN IVP Nausea & Vomiting 06/28/19 14:15 07/28/19 14:14 Piperacillin Sod/ Tazobactam Sod 3.375 gm/Dextrose 100 ml @ 25 mls/hr EVERY 8 HOURS IVPB 06/28/19 14:16 07/05/19 14:15 06/30/19 05:08 Polyethylene Glycol (Miralax) 17 gm HSPRN PRN ORAL Constipation 06/28/19 14:15 07/28/19 14:14 Sodium Chloride 1,000 ml @ 100 mls/hr Q10H IV 06/29/19 20:15 07/29/19 20:14 06/30/19 05:09 Tamsulosin HCl (Flomax) 0.4 mg DAILY ORAL 06/29/19 09:00 07/29/19 08:59 06/29/19 09:25 Last 24 Hour Vital Signs Date Time Temp Pulse Resp B/P (MAP) Pulse Ox O2 Delivery O2 Flow Rate FiO2 06/30/19 04:00 97.7 76 18 153/88 (109) 98 06/30/19 04:00 72 06/30/19 00:00 70 06/30/19 00:00 97.6 81 18 141/74 (96) 96 06/29/19 21:23 82 112/55 06/29/19 21:00 Room Air 06/29/19 20:17 86 18 98 Room Air 21 06/29/19 20:17 98 Room Air 21 06/29/19 20:00 98.6 82 17 112/55 (74) 98 06/29/19 20:00 88 06/29/19 16:00 98.6 85 18 109/62 (78) 98 06/29/19 16:00 86 06/29/19 12:00 73 06/29/19 12:00 98.6 66 20 130/86 (101) 98 06/29/19 09:25 84 132/69 06/29/19 08:05 84 16 95 Room Air 21 06/29/19 08:05 95 Room Air 21 06/29/19 08:00 88 06/29/19 08:00 97.0 71 20 132/69 (90) 96 06/29/19 05:16 Room Air 21 06/29/19 04:00 98.1 77 20 148/76 (100) 96 06/29/19 04:00 90 06/29/19 00:00 99.3 91 20 134/73 (93) 96 06/29/19 00:00 92 06/28/19 22:01 96 120/70 06/28/19 20:00 97.5 82 20 120/70 (87) 96 06/28/19 16:00 97.8 81 18 145/73 (97) 98 06/28/19 15:26 86 06/28/19 13:30 97.8 99 18 148/96 (113) 98 06/28/19 12:00 97.8 99 18 136/96 (109) 98 06/28/19 08:58 Room Air 06/28/19 08:00 99.3 98 18 132/76 (94) 98 Intake and Output 06/29/19 06/30/19 19:00 07:00 Intake Total 140 ml Output Total 1400 ml Balance -1260 ml Intake Oral 140 ml Output Urine Total 1400 ml # Voids 3 Labs Test 06/28/19 07:25 06/28/19 12:35 06/28/19 20:38 06/29/19 05:50 White Blood Count 7.8 K/UL (4.8-10.8) 5.4 K/UL (4.8-10.8) 4.9 K/UL (4.8-10.8) Red Blood Count 3.32 M/UL (4.70-6.10) 3.37 M/UL (4.70-6.10) 3.40 M/UL (4.70-6.10) Hemoglobin 11.9 G/DL (14.2-18.0) 11.4 G/DL (14.2-18.0) 11.8 G/DL (14.2-18.0) Hematocrit 33.0 % (42.0-52.0) 35.1 % (42.0-52.0) 33.6 % (42.0-52.0) Mean Corpuscular Volume 100 FL (80-99) 104 FL (80-99) 99 FL (80-99) Mean Corpuscular Hemoglobin 35.8 PG (27.0-31.0) 33.8 PG (27.0-31.0) 34.8 PG (27.0-31.0) Mean Corpuscular Hemoglobin Concent 35.9 G/DL (32.0-36.0) 32.4 G/DL (32.0-36.0) 35.2 G/DL (32.0-36.0) Red Cell Distribution Width 12.8 % (11.6-14.8) 13.2 % (11.6-14.8) 12.0 % (11.6-14.8) Platelet Count 74 K/UL (150-450) 72 K/UL (150-450) 70 K/UL (150-450) Mean Platelet Volume 7.5 FL (6.5-10.1) 11.0 FL (6.5-10.1) 8.1 FL (6.5-10.1) Neutrophils (%) (Auto) % (45.0-75.0) 86.8 % (45.0-75.0) % (45.0-75.0) Lymphocytes (%) (Auto) % (20.0-45.0) 7.0 % (20.0-45.0) % (20.0-45.0) Monocytes (%) (Auto) % (1.0-10.0) 5.8 % (1.0-10.0) % (1.0-10.0) Eosinophils (%) (Auto) % (0.0-3.0) 0.2 % (0.0-3.0) % (0.0-3.0) Basophils (%) (Auto) % (0.0-2.0) 0.2 % (0.0-2.0) % (0.0-2.0) Differential Total Cells Counted 100 100 Neutrophils % (Manual) 91 % (45-75) 81 % (45-75) Lymphocytes % (Manual) 6 % (20-45) 10 % (20-45) Monocytes % (Manual) 3 % (1-10) 6 % (1-10) Eosinophils % (Manual) 0 % (0-3) 3 % (0-3) Basophils % (Manual) 0 % (0-2) 0 % (0-2) Band Neutrophils 0 % (0-8) 0 % (0-8) Platelet Estimate Decreased Decreased Platelet Morphology Normal Normal Macrocytosis 1+ Sodium Level 137 MMOL/L (136-145) 137 MMOL/L (136-145) 138 MMOL/L (136-145) Potassium Level 4.3 MMOL/L (3.5-5.1) 4.5 MMOL/L (3.5-5.1) 4.0 MMOL/L (3.5-5.1) Chloride Level 105 MMOL/L (98-107) 103 MMOL/L (98-107) 103 MMOL/L (98-107) Carbon Dioxide Level 23 MMOL/L (21-32) 26 MMOL/L (21-32) 27 MMOL/L (21-32) Anion Gap 9 mmol/L (5-15) 8 mmol/L (5-15) 8 mmol/L (5-15) Blood Urea Nitrogen 29 mg/dL (7-18) 28 mg/dL (7-18) 24 mg/dL (7-18) Creatinine 1.4 MG/DL (0.55-1.30) 1.2 MG/DL (0.55-1.30) 1.3 MG/DL (0.55-1.30) Estimat Glomerular Filtration Rate 48.2 mL/min (>60) 57.5 mL/min (>60) 52.5 mL/min (>60) Glucose Level 109 MG/DL (74-106) 124 MG/DL (74-106) 107 MG/DL (74-106) Calcium Level 8.5 MG/DL (8.5-10.1) 8.4 MG/DL (8.5-10.1) 8.9 MG/DL (8.5-10.1) Total Bilirubin 1.2 MG/DL (0.2-1.0) 0.9 MG/DL (0.2-1.0) 0.9 MG/DL (0.2-1.0) Direct Bilirubin 0.4 MG/DL (0.0-0.3) Aspartate Amino Transf (AST/SGOT) 27 U/L (15-37) 60 U/L (15-37) 40 U/L (15-37) Alanine Aminotransferase (ALT/SGPT) 35 U/L (12-78) 46 U/L (12-78) 38 U/L (12-78) Alkaline Phosphatase 64 U/L (46-116) 67 U/L (46-116) 69 U/L (46-116) Troponin I 0.010 ng/mL (0.000-0.056) Total Protein 6.0 G/DL (6.4-8.2) 6.0 G/DL (6.4-8.2) 6.6 G/DL (6.4-8.2) Albumin 2.8 G/DL (3.4-5.0) 2.8 G/DL (3.4-5.0) 2.8 G/DL (3.4-5.0) Globulin 3.2 g/dL 3.2 g/dL 3.8 g/dL Albumin/Globulin Ratio 0.9 (1.0-2.7) 0.9 (1.0-2.7) 0.7 (1.0-2.7) Prothrombin Time 13.0 SEC (9.30-11.50) 12.8 SEC (9.30-11.50) Prothromb Time International Ratio 1.2 (0.9-1.1) 1.2 (0.9-1.1) Hypochromasia 1+ Anisocytosis 1+ Hepatitis A IgM Antibody Negative (Negative) Hepatitis B Surface Antigen Negative (Negative) Hepatitis B Core IgM Antibody Negative (Negative) Hepatitis C Antibody <0.1 s/co ratio HIV (1&2) Antibody Rapid Negative (NEGATIVE) Height (Feet): 5 Height (Inches): 5.00 Weight (Pounds): 151 Objective Physical Exam: Vitals: reviewed General: NAD Neck: supple Chest: clear breath sounds bilaterally Cardiovascular: RRR, no s3, s4 Abdomen: soft, nontender, nd Extremities: no cce, normal range of motion Mental: alert Blaine Weathers MD Jun 30, 2019 06:08
--- NOTE | 2019-06-30 07:00 | NUR ---
NURSE NOTES: Received report from Gustavo YOUNG. Pt in bed awake and orientedx3 and georgian speaking and able to make needs known. IV site in RFA 24G running with NS @100ml/hr patent and asymptomatic. Call light within easy reach. Side railsx3 up for safety. On bed alarm. Bed in it's lowest position and locked. HOB elevated. Pt claimed missing money. On the belonging list, the patient admitted with $191 and receiving nurse signed to confirm on 06/28/19. Made previous shift RN Gustavo and Zac, charge nurse aware. Will continue to plan of care.
--- NOTE | 2019-06-30 07:30 | NUR ---
HAND-OFF: Report given to Min RN.
[2019-06-30 07:31] LABS: HEMATOCRIT 34.9 % (42.0-52.0); HEMOGLOBIN 12.2 G/DL (14.2-18.0); MEAN CORPUSCULAR VOLUME 99 FL (80-99); PLATELET COUNT 82 K/UL (150-450); RED BLOOD COUNT 3.53 M/UL (4.70-6.10); WHITE BLOOD COUNT 4.2 K/UL (4.8-10.8)
[2019-06-30 08:21] LABS: ALANINE AMINOTRANSFERASE 38 U/L (12-78); ALBUMIN 2.7 G/DL (3.4-5.0); ALBUMIN/GLOBULIN RATIO 0.8 (1.0-2.7); ALKALINE PHOSPHATASE 74 U/L (46-116); ANION GAP 8 mmol/L (5-15); ASPARTATE AMINO TRANSFERASE 33 U/L (15-37); BILIRUBIN,TOTAL 0.5 MG/DL (0.2-1.0); BLOOD UREA NITROGEN 20 mg/dL (7-18); CALCIUM 8.8 MG/DL (8.5-10.1); CARBON DIOXIDE 27 MMOL/L (21-32); CHLORIDE 107 MMOL/L (98-107); CREATININE 1.4 MG/DL (0.55-1.30); POTASSIUM 4.1 MMOL/L (3.5-5.1); SODIUM 142 MMOL/L (136-145)
[2019-06-30 09:17] LABS: INR 1.2 (0.9-1.1)
[2019-06-30] MEDS: Carvedilol 6.25mg Tab ORAL SCH ×2 (09:27→21:42)
[2019-06-30] MEDS: Tamsulosin 0.4mg cap ORAL SCH (09:27)
--- NOTE | 2019-06-30 09:34 | NUR ---
CASE MANAGEMENT:REVIEW 06/30/19 SI: E COLI BACTEREMIA. AFIB W/RVR ACUTE APPENDICITIS 98.1 78 20 157/91 96% ON RA IS: IV ZOSYN Q8HRS COUMADIN 5MG PO X1 PROSCAR PO QD FLOMAX PO QD COREG PO Q12 : NOW ON TELEMETRY DCP: FROM HOME PLAN: ONCE STABLE ~ LAPAROSCOPIC APPENDECTOMY CONSENT FOR SURGERY
--- NOTE | 2019-06-30 10:17 | NUR ---
NURSE NOTES: Report given to Sirena YOUNG for surgery. The patient might be picked up at 11am for surgery. Reinforced the patient for NPO.
--- NOTE | 2019-06-30 11:01 | Cardiac Electrophysiology PN ---
Assessment/Plan Assessment/Plan 1. Elevated BNP of more than 5000, possible congestive heart failure due to diastolic dysfunction. Echocardiogram EF 55% 2. Hypotension. Hold off antihypertensive agents at this time. 3. Atrial fib with RVR. Hold coumadin for appendectomy today. Continue Coreg 6.25 bid 4. Gram-negative bacteremia, could be from appendicitis. Going for urgent appendectomy by Dr Mo today The patient is on Abx per Dr. Leung. Echocardiogram didn't show any vegetations on the valves 5. COPD, on albuterol. 6. Thrombocytopenia 70k. FU Dr Tracy WARD RN and Dr Wright Subjective Subjective In atrial fib with cotrolled rate. No CP or SOB. NPO for appendectomy Objective Last 24 Hour Vital Signs Date Time Temp Pulse Resp B/P (MAP) Pulse Ox O2 Delivery O2 Flow Rate FiO2 06/30/19 09:27 73 157/91 06/30/19 09:00 Room Air 06/30/19 08:00 73 06/30/19 08:00 98.1 78 20 157/91 (113) 96 06/30/19 07:01 96 Room Air 21 06/30/19 07:01 85 18 96 Room Air 21 06/30/19 04:00 97.7 76 18 153/88 (109) 98 06/30/19 04:00 72 06/30/19 00:00 70 06/30/19 00:00 97.6 81 18 141/74 (96) 96 06/29/19 21:23 82 112/55 06/29/19 21:00 Room Air 06/29/19 20:17 86 18 98 Room Air 21 06/29/19 20:17 98 Room Air 21 06/29/19 20:00 98.6 82 17 112/55 (74) 98 06/29/19 20:00 88 06/29/19 16:00 98.6 85 18 109/62 (78) 98 06/29/19 16:00 86 06/29/19 12:00 73 06/29/19 12:00 98.6 66 20 130/86 (101) 98 Intake and Output 06/29/19 06/30/19 19:00 07:00 Intake Total 140 ml Output Total 1400 ml Balance -1260 ml Intake Oral 140 ml Output Urine Total 1400 ml # Voids 3 10 Laboratory Tests Test 06/30/19 06:05 White Blood Count 4.2 K/UL (4.8-10.8) L Red Blood Count 3.53 M/UL (4.70-6.10) L Hemoglobin 12.2 G/DL (14.2-18.0) L Hematocrit 34.9 % (42.0-52.0) L Mean Corpuscular Volume 99 FL (80-99) Mean Corpuscular Hemoglobin 34.6 PG (27.0-31.0) H Mean Corpuscular Hemoglobin Concent 35.0 G/DL (32.0-36.0) Red Cell Distribution Width 12.0 % (11.6-14.8) Platelet Count 82 K/UL (150-450) L Mean Platelet Volume 7.0 FL (6.5-10.1) Neutrophils (%) (Auto) % (45.0-75.0) Lymphocytes (%) (Auto) % (20.0-45.0) Monocytes (%) (Auto) % (1.0-10.0) Eosinophils (%) (Auto) % (0.0-3.0) Basophils (%) (Auto) % (0.0-2.0) Differential Total Cells Counted 100 Neutrophils % (Manual) 79 % (45-75) H Lymphocytes % (Manual) 14 % (20-45) L Monocytes % (Manual) 5 % (1-10) Eosinophils % (Manual) 2 % (0-3) Basophils % (Manual) 0 % (0-2) Band Neutrophils 0 % (0-8) Platelet Estimate Decreased L Platelet Morphology Normal Red Blood Cell Morphology Normal Erythrocyte Sedimentation Rate 67 MM/HR (0-20) H Prothrombin Time 12.2 SEC (9.30-11.50) H Prothromb Time International Ratio 1.2 (0.9-1.1) H Activated Partial Thromboplast Time 31 SEC (23-33) Sodium Level 142 MMOL/L (136-145) Potassium Level 4.1 MMOL/L (3.5-5.1) Chloride Level 107 MMOL/L (98-107) Carbon Dioxide Level 27 MMOL/L (21-32) Anion Gap 8 mmol/L (5-15) Blood Urea Nitrogen 20 mg/dL (7-18) H Creatinine 1.4 MG/DL (0.55-1.30) H Estimat Glomerular Filtration Rate 48.2 mL/min (>60) Glucose Level 119 MG/DL (74-106) H Calcium Level 8.8 MG/DL (8.5-10.1) Total Bilirubin 0.5 MG/DL (0.2-1.0) Aspartate Amino Transf (AST/SGOT) 33 U/L (15-37) Alanine Aminotransferase (ALT/SGPT) 38 U/L (12-78) Alkaline Phosphatase 74 U/L (46-116) C-Reactive Protein, Quantitative 5.9 mg/dL (0.00-0.90) H Total Protein 6.3 G/DL (6.4-8.2) L Albumin 2.7 G/DL (3.4-5.0) L Globulin 3.6 g/dL Albumin/Globulin Ratio 0.8 (1.0-2.7) L Microbiology Date/Time Source Procedure Growth Status 06/28/19 07:25 Blood Blood Culture - Preliminary NO GROWTH AFTER 48 HOURS Resulted 06/28/19 07:15 Blood Blood Culture - Preliminary NO GROWTH AFTER 48 HOURS Resulted Objective HEAD AND NECK: Showed no JVD. LUNGS: Clear. CARDIOVASCULAR: Irregular S1 and S2 with no gallop or murmur. ABDOMEN: Soft and nontender. EXTREMITIES: No pitting edema. Pro Scherer MD Jun 30, 2019 11:01
--- NOTE | 2019-06-30 11:10 | NUR ---
NURSE NOTES: Pt went to the surgery via gurney with a transporter. No acute distress noted.
--- NOTE | 2019-06-30 11:19 | NUR ---
NURSING SORTING SUPERVISOR NOTE: Charge Nurse Zac reported that patient states that he is missing money. Spoke to primary RN Jarred. Patient is stating he is missing almost $200. On belongings sheet, there is $191 logged in with note that patient declined placing money in hospital safe
--- NOTE | 2019-06-30 11:45 | General Progress Note ---
Assessment/Plan Problem List: (1) Severe sepsis ICD Codes: A41.9 - Sepsis, unspecified organism; R65.20 - Severe sepsis without septic shock SNOMED: 40539092 (2) E coli bacteremia ICD Codes: R78.81 - Bacteremia; B96.20 - Unspecified Escherichia coli [E. coli ] as the cause of diseases classified elsewhere SNOMED: 086750441297 (3) Acute appendicitis ICD Codes: K35.80 - Unspecified acute appendicitis SNOMED: 84155763 (4) Acute metabolic encephalopathy ICD Codes: G93.41 - Metabolic encephalopathy SNOMED: 99347672, 418807253 (5) UTI (urinary tract infection) ICD Codes: N39.0 - Urinary tract infection, site not specified SNOMED: 46765589 Qualifiers: Qualified Codes: N30.01 - Acute cystitis with hematuria (6) Atrial fibrillation ICD Codes: I48.91 - Unspecified atrial fibrillation SNOMED: 98077291 (7) GIANLUCA (acute kidney injury) ICD Codes: N17.9 - Acute kidney failure, unspecified SNOMED: 1585966, 80163249 (8) CKD (chronic kidney disease) ICD Codes: N18.9 - Chronic kidney disease, unspecified SNOMED: 876681043 (9) Thrombocytopenia ICD Codes: D69.6 - Thrombocytopenia, unspecified SNOMED: 798183693 (10) Lactic acidosis ICD Codes: E87.2 - Acidosis SNOMED: 31577452 (11) HTN (hypertension) ICD Codes: I10 - Essential (primary) hypertension SNOMED: 20692967 (12) Pre-diabetes ICD Codes: R73.03 - Prediabetes SNOMED: 612907217 (13) Meningioma ICD Codes: D32.9 - Benign neoplasm of meninges, unspecified SNOMED: 110157375 (14) Mesenteric mass ICD Codes: K63.89 - Other specified diseases of intestine SNOMED: 560162861 (15) Abdominal cyst SNOMED: 969036265 Status: stable Assessment/Plan: 83 year old male presented with altered mental status. #Severe sepsis #Gram-negative bacteremia, E. Coli, beck sensitive , from UTI or biliary #Acute metabolic encephalopathy- resolved # Lactic acidosis-resolved #Acute appendicitis telemetry IV Zosyn per ID, CT abdomen pelvis- acute appendicitis, mesenteric mass, as above. Dr. Benyamini consulted. He is going to urgent lap appendectomy to 06/30. Coumadin held 2D echo no evidence of vegetations #Atrial fibrillation Telemetry Atrial fib with RVR. Hold Coumadin for surgery. INR 1.2 continue coreg 6.25 bid cardiology consult #GIANLUCA (acute kidney injury) #CKD (chronic kidney disease) Monitor renal function avoid nephrotoxic medications stable #Thrombocytopenia continue Coumadin for afib, given high [facility]ADSVASC hematology consult #HTN (hypertension) #Possible CHF Coreg. 2D echocardiogram, EF 55% Elevated BNP of more than 5000, possible congestive heart failure. #COPD on albuterol #Pre-diabetes monitor glucose on chemistry #Meningioma incidental. outpatient follow up I spent 40 minutes on this encounter. Greater than 50% spend on counselling and care coordination time of note may not reflect time of encounter Subjective Date patient seen: Jun 30, 2019 ROS Limited/Unobtainable: No Constitutional: Denies: no symptoms, chills, diaphoresis, fever, malaise, weakness, other HEENT: Denies: no symptoms, eye pain, blurred vision, tearing, double vision, ear pain, ear discharge, nose pain, nose congestion, throat pain, throat swelling, mouth pain, mouth swelling, other Cardiovascular: Denies: no symptoms, chest pain, edema, irregular heart rate, lightheadedness, palpitations, syncope, other Respiratory: Denies: no symptoms, cough, orthopnea, shortness of breath, SOB with excertion, SOB at rest, sputum, stridor, wheezing, other Gastrointestinal/Abdominal: Denies: no symptoms, abdomen distended, abdominal pain, black stools, tarry stools, blood in stool, constipated, diarrhea, difficulty swallowing, nausea, poor appetite, poor fluid intake, rectal bleeding , vomiting, other Genitourinary: Denies: no symptoms, burning, discharge, frequency, flank pain, hematuria, incontinence, pain, urgency, other Neurologic/Psychiatric: Denies: no symptoms, anxiety, depressed, emotional problems, headache, numbness, paresthesia, pre-existing deficit, seizure, tingling, tremors, weakness, other Endocrine: Denies: no symptoms, excessive sweating, flushing, intolerance to cold, intolerance to heat, increased hunger, increased thirst, increased urine, unexplained weight gain, unexplained weight loss, other Hematologic/Lymphatic: Denies: no symptoms, anemia, easy bleeding, easy bruising, other Allergies: Coded Allergies: No Known Allergies (Unverified , 06/26/19) Subjective stable overnight. E.coli bacteremia, pansensitive. CT abdomen pelvis with appendicitis Objective Last 24 Hour Vital Signs Date Time Temp Pulse Resp B/P (MAP) Pulse Ox O2 Delivery O2 Flow Rate FiO2 06/30/19 09:27 73 157/91 06/30/19 09:00 Room Air 06/30/19 08:00 73 06/30/19 08:00 98.1 78 20 157/91 (113) 96 06/30/19 07:01 96 Room Air 21 06/30/19 07:01 85 18 96 Room Air 21 06/30/19 04:00 97.7 76 18 153/88 (109) 98 06/30/19 04:00 72 06/30/19 00:00 70 06/30/19 00:00 97.6 81 18 141/74 (96) 96 06/29/19 21:23 82 112/55 06/29/19 21:00 Room Air 06/29/19 20:17 86 18 98 Room Air 21 06/29/19 20:17 98 Room Air 21 06/29/19 20:00 98.6 82 17 112/55 (74) 98 06/29/19 20:00 88 06/29/19 16:00 98.6 85 18 109/62 (78) 98 06/29/19 16:00 86 06/29/19 12:00 73 06/29/19 12:00 98.6 66 20 130/86 (101) 98 Intake and Output 06/29/19 06/30/19 19:00 07:00 Intake Total 140 ml Output Total 1400 ml Balance -1260 ml Intake Oral 140 ml Output Urine Total 1400 ml # Voids 3 10 Laboratory Tests 06/30/19 06:05: White Blood Count 4.2L, Red Blood Count 3.53L, Hemoglobin 12.2L, Hematocrit 34.9L, Mean Corpuscular Volume 99, Mean Corpuscular Hemoglobin 34.6H, Mean Corpuscular Hemoglobin Concent 35.0, Red Cell Distribution Width 12.0, Platelet Count 82L, Mean Platelet Volume 7.0, Neutrophils (%) (Auto) , Lymphocytes (%) ( Auto) , Monocytes (%) (Auto) , Eosinophils (%) (Auto) , Basophils (%) (Auto) , Differential Total Cells Counted 100, Neutrophils % (Manual) 79H, Lymphocytes % (Manual) 14L, Monocytes % (Manual) 5, Eosinophils % (Manual) 2, Basophils % ( Manual) 0, Band Neutrophils 0, Platelet Estimate DecreasedL, Platelet Morphology Normal, Red Blood Cell Morphology Normal, Erythrocyte Sedimentation Rate 67H, Prothrombin Time 12.2H, Prothromb Time International Ratio 1.2H, Activated Partial Thromboplast Time 31, Sodium Level 142, Potassium Level 4.1, Chloride Level 107, Carbon Dioxide Level 27, Anion Gap 8, Blood Urea Nitrogen 20H, Creatinine 1.4H, Estimat Glomerular Filtration Rate 48.2, Glucose Level 119H, Calcium Level 8.8, Total Bilirubin 0.5, Aspartate Amino Transf (AST/SGOT) 33, Alanine Aminotransferase (ALT/SGPT) 38, Alkaline Phosphatase 74, C-Reactive Protein, Quantitative 5.9H, Total Protein 6.3L, Albumin 2.7L, Globulin 3.6, Albumin/Globulin Ratio 0.8L CT abdomen pelvis: Impression: Findings consistent with acute appendicitis. There are questionably 2 small adjacent gas bubbles which are more likely artifactual than real but could indicate focal microperforation. However, there is no evidence of periappendiceal abscess. 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 Not definitely related to any adjacent organs. The possibility of unusual cystic neoplasm should also be considered. Adjacent 1.7 cm mesenteric root mass demonstrating nonspecific soft tissue attenuation. Likewise nonspecific, neoplasm not excludable Nonspecific prominent retroperitoneal nodes Borderline splenomegaly Atrophic left kidney Grade 1-2 spondylolisthesis of L4 on L5 without evidence of spondylolysis. There is associated secondary degenerative change Cardiomegaly Pericardial effusion Other findings as noted, including dependent posterior pulmonary atelectatic changes, pulmonary parenchymal scarring, left basilar old granulomatous disease, small fat-containing direct right inguinal hernia Height (Feet): 5 Height (Inches): 5.00 Weight (Pounds): 138 Objective General Appearance: alert and awake Lines, tubes and drains: peripheral HEENT: normocephalic, atraumatic, anicteric, PERRL, EOMI Neck: non-tender, normal alignment, supple Respiratory/Chest: chest wall non-tender, lungs clear, normal breath sounds, no respiratory distress, no accessory muscle use Cardiovascular/Chest: normal peripheral pulses, no gallop/murmur, no JVD, other - rate: IRIR Abdomen: normal bowel sounds, non tender, soft, no organomegaly, no mass Extremities: normal range of motion, non-tender, normal inspection, no calf tenderness Skin Exam: normal pigmentation, warm/dry Neurologic: alert and oriented x4, grossly normal Rafael West M.D. Jun 30, 2019 11:45
[2019-06-30] MEDS ORDERED: Rocuronium Bromide 50mg/5ml Inj IV ONE (12:00)
[2019-06-30] MEDS ORDERED: LR 1000ml ONE (12:00)
[2019-06-30] MEDS ORDERED: Propofol 200mg/20ml IV ONE (12:00)
[2019-06-30] MEDS ORDERED: Sterile Water Irrig 1000ml IRRIG ONE (12:00)
[2019-06-30] MEDS ORDERED: NS Irrig 1000ml ONE (12:00)
[2019-06-30] MEDS ORDERED: LR 1000ml 1,000 ML IVLG SCH (12:02)
--- NOTE | 2019-06-30 12:06 | Anethesia Preoperative Eval ---
Anesthesia Pre-op PMH/ROS General Date of Evaluation: Jun 30, 2019 Time of Evaluation: 12:06 Anesthesiologist: Jos ASA Score: ASA 3 Mallampati Score Class I : Soft palate, uvula, fauces, pillars visible Class II: Soft palate, uvula, fauces visible Class III: Soft palate, base of uvula visible Class IV: Only hard plate visible Mallampati Classification: Class II Surgeon: Adriana Diagnosis: Abd Pain Surgical Procedure: Laproscopic Appendetomy Anesthesia History: none Family History: no anesthesia problems Allergies: Coded Allergies: No Known Allergies (Unverified , 06/26/19) Medications: see eMAR Patient NPO?: Yes NPO Date: Jun 30, 2019 NPO Time: 0000 Past Medical History Cardiovascular: Reports: HTN, arrhythmia - AFib with RVR, other - PVD, CHF EF= 55% Endocrine: Reports: DM Hematology/Immune: Reports: anemia Anesthesia Pre-op Phys. Exam Physician Exam Last Vital Signs Date Time Temp Pulse Resp B/P (MAP) Pulse Ox O2 Delivery O2 Flow Rate FiO2 06/30/19 09:27 73 157/91 06/30/19 09:00 Room Air 06/30/19 08:00 98.1 20 96 06/30/19 07:01 21 Constitutional: NAD Neurologic: CN 2-12 intact Cardiovascular: RRR Respiratory: CTA Gastrointestinal: S/NT/ND Airway Exam Mallampati Score: Class II MO: full ROM: limited Teeth: missing, intact Anesthesia Pre-op A/P Labs Hematology Test 06/30/19 06:05 White Blood Count 4.2 K/UL (4.8-10.8) L Red Blood Count 3.53 M/UL (4.70-6.10) L Hemoglobin 12.2 G/DL (14.2-18.0) L Hematocrit 34.9 % (42.0-52.0) L Mean Corpuscular Volume 99 FL (80-99) Mean Corpuscular Hemoglobin 34.6 PG (27.0-31.0) H Mean Corpuscular Hemoglobin Concent 35.0 G/DL (32.0-36.0) Red Cell Distribution Width 12.0 % (11.6-14.8) Platelet Count 82 K/UL (150-450) L Mean Platelet Volume 7.0 FL (6.5-10.1) Neutrophils (%) (Auto) % (45.0-75.0) Lymphocytes (%) (Auto) % (20.0-45.0) Monocytes (%) (Auto) % (1.0-10.0) Eosinophils (%) (Auto) % (0.0-3.0) Basophils (%) (Auto) % (0.0-2.0) Differential Total Cells Counted 100 Neutrophils % (Manual) 79 % (45-75) H Lymphocytes % (Manual) 14 % (20-45) L Monocytes % (Manual) 5 % (1-10) Eosinophils % (Manual) 2 % (0-3) Basophils % (Manual) 0 % (0-2) Band Neutrophils 0 % (0-8) Platelet Estimate Decreased L Platelet Morphology Normal Red Blood Cell Morphology Normal Erythrocyte Sedimentation Rate 67 MM/HR (0-20) H Coagulation Test 06/30/19 06:05 Prothrombin Time 12.2 SEC (9.30-11.50) H Prothromb Time International Ratio 1.2 (0.9-1.1) H Activated Partial Thromboplast Time 31 SEC (23-33) Chemistry Test 06/30/19 06:05 Sodium Level 142 MMOL/L (136-145) Potassium Level 4.1 MMOL/L (3.5-5.1) Chloride Level 107 MMOL/L (98-107) Carbon Dioxide Level 27 MMOL/L (21-32) Anion Gap 8 mmol/L (5-15) Blood Urea Nitrogen 20 mg/dL (7-18) H Creatinine 1.4 MG/DL (0.55-1.30) H Estimat Glomerular Filtration Rate 48.2 mL/min (>60) Glucose Level 119 MG/DL (74-106) H Calcium Level 8.8 MG/DL (8.5-10.1) Total Bilirubin 0.5 MG/DL (0.2-1.0) Aspartate Amino Transf (AST/SGOT) 33 U/L (15-37) Alanine Aminotransferase (ALT/SGPT) 38 U/L (12-78) Alkaline Phosphatase 74 U/L (46-116) C-Reactive Protein, Quantitative 5.9 mg/dL (0.00-0.90) H Total Protein 6.3 G/DL (6.4-8.2) L Albumin 2.7 G/DL (3.4-5.0) L Globulin 3.6 g/dL Albumin/Globulin Ratio 0.8 (1.0-2.7) L Risk Assessment & Plan Assessment: ASA 3 Plan: GA, SED, GlideScope Go Pre-Antibiotics Dru Gram Ancef IV Given Within 1 Hr of Incision: Yes Time Given: 12:36 Lebron Youngblood MD Jun 30, 2019 12:06
[2019-06-30] MEDS ORDERED: Hydromorphone 0.5mg/0.5ml inj IVP PRN (12:15)
[2019-06-30] MEDS ORDERED: LORazepam Inj 2mg/ml 1ml IV PRN (12:15)
[2019-06-30] MEDS ORDERED: fentaNYL 100 mcg/2 mL IV PRN (12:15)
[2019-06-30] MEDS ORDERED: Labetalol 5mg/ml 20ml vial IV PRN (12:15)
[2019-06-30] MEDS ORDERED: Meperidine 25mg/0.5ml Inj (FOR RIGORS ONLY) IV PRN (12:15)
[2019-06-30] MEDS ORDERED: HYDROcodone/Acetamin 5/325 tab ORAL PRN (12:15)
[2019-06-30] MEDS ORDERED: Acetaminophen (Non formulary) 100 ML IV ONE (12:15)
[2019-06-30] MEDS ORDERED: Atropine Sulfate 0.4mg/ml inj IVP PRN (12:15)
[2019-06-30] MEDS ORDERED: Midazolam 2mg/2ml Inj IVP PRN (12:15)
[2019-06-30] MEDS ORDERED: Ketorolac 30mg Inj IV PRN ×2 (12:15)
[2019-06-30] MEDS ORDERED: Metoclopramide 10mg/2ml Inj IVP PRN (12:15)
[2019-06-30] MEDS ORDERED: DiphenhydrAMINE 50mg/ml Inj IVP PRN (12:15)
[2019-06-30] MEDS ORDERED: oxyCODONE HCL/Acetaminophen 5/325mg ORAL PRN (12:15)
[2019-06-30] MEDS ORDERED: HYDROcodone/Acetamin 7.5/325 tab ORAL PRN (12:15)
[2019-06-30] MEDS ORDERED: Lidocaine 1% MPF 10mg/ml 5ml ONE (12:17)
[2019-06-30] MEDS ORDERED: Sodium Chloride 10ml vial INJ ONE (12:17)
[2019-06-30] MEDS ORDERED: Midazolam 2mg/2ml Inj ONE (12:19)
[2019-06-30] MEDS ORDERED: fentaNYL 100 mcg/2 mL IV ONE (12:19)
[2019-06-30] MEDS ORDERED: Metoprolol Tartrate 5mg/5ml Inj ONE (12:42)
[2019-06-30] MEDS ORDERED: Glycopyrrolate 0.2mg/ml 1ml Vial ONE ×2 (13:01→13:26)
--- NOTE | 2019-06-30 13:53 | Immediate Post-Op Evaluation ---
Immediate Post-Op Evalulation Immediate Post-Op Evalulation Procedure: Laparoscopic Appendectomy Date of Evaluation: Jun 30, 2019 Time of Evaluation: 14:08 IV Fluids: 800 LR Blood Products: 0 Estimated Blood Loss: 50 Urinary Output: 0 Blood Pressure Systolic: 175 Blood Pressure Diastolic: 107 Pulse Rate: 93 Respiratory Rate: 16 O2 Sat by Pulse Oximetry: 100 Temperature (Fahrenheit): 97.6 Pain Score (1-10): 2 Nausea: No Vomiting: No Complications 0 Patient Status: awake, reacts, patent, extubated, none Hydration Status: adequate Dru Gram Ancef IV Given Within 1 Hr of Incision: Yes Time Given: 12:36 Lebron Youngblood MD Jun 30, 2019 13:53
--- NOTE | 2019-06-30 13:54 | 48 Hour Post Anesthesia Eval ---
Post Anesthesia Evaluation Procedure: Laparoscopic Appendectomy Date of Evaluation: Jun 30, 2019 Time of Evaluation: 16:23 Blood Pressure Systolic: 156 0: 94 Pulse Rate: 93 Respiratory Rate: 18 Temperature (Fahrenheit): 98.2 O2 Sat by Pulse Oximetry: 100 Airway: patent Nausea: No Vomiting: No Pain Intensity: 2 Hydration Status: adequate Cardiopulmonary Status: Stable Mental Status/LOC: patient returned to baseline Follow-up Care/Observations: 0 Post-Anesthesia Complications: 0 Follow-up care needed: N/A Lebron Youngblood MD Jun 30, 2019 13:54
[2019-06-30] MEDS ORDERED: Morphine Sulfate 4mg/ml Inj (IV USE ONLY) IVP PRN (14:45)
--- NOTE | 2019-06-30 14:45 | Brief Operative Note ---
Immediate Post Operative Note Operative Note Pre-op Diagnosis: acute appendicitis, abdominal cystic fluid collection, mesenteric mass Procedure: lap appy drainage of peritoneal cyst excision of perioneal mesenteric cyst/mass Post-op Diagnosis: same as pre-op Surgeon: rajesh Anesthesiologist: cr Anesthesia: general, local Specimen: yes Complications: none Condition: stable Fluids: see records Estimated Blood Loss: minimal Drains: MIRANDA Implant(s) used?: No Shemar Wright Jun 30, 2019 14:45
--- NOTE | 2019-06-30 15:16 | NUR ---
NURSE NOTES: Pt returned from the surgery via hussein with RN. Received report from Sally YOUNG. Pt in bed awake and orientedx3 and denied pain. MIRANDA vac on mid abdomen noted On 3LPM via N/C. Will continue to plan of care.
--- NOTE | 2019-06-30 15:18 | NUR ---
*-* INSURANCE *-* ALL CLINICALS AND REVIEWS HAVE BEEN FAXED TO: [facility] [employer] # YET # [phone] FAX# [phone] REVIEWS/CLINICALS
--- NOTE | 2019-06-30 17:30 | NUR ---
NURSE NOTES: Found the MIRANDA vac on the floor. The patient stated that he removed it because it's not needed. AOX3 and able to follow the direction. No bleeding or skin breakdown noted from MIRANDA vac removal site. Dr. Wright notified. No new orders noted.
--- NOTE | 2019-06-30 19:22 | Infectious Diseases Prog Note ---
Assessment/Plan Assessment/Plan ASSESSMENT AND PLAN: 1. e.coli bacteremia, acute appendicitis, sepsis, leukocytosis, pelvic cystic mass - zosyn - s/p lap appendectomy and resection of cyst/mass - monitor labs - d/w Dr. West, Dr. Elizondo and radiologist 2. Atrial fibrillation. 3. Acute kidney injury. 4. Chronic renal failure. 5. Anemia. 6. BPH. 7. Hypertension. 8. Blood pressure treatment per primary care team and consultants. 9. Chronic kidney disease. 10. Altered mental status/encephalopathy. 11. Thrombocytopenia. 12. Lactic acidosis and sepsis. 13. Prediabetes. 14. History of meningioma. 15. Continue treatment per primary consultants. 16. No known drug allergies. 17. Social history is negative. 18. Family history is noncontributory. 19. Case was discussed with RN. Subjective Constitutional: Denies: fever HEENT: Denies: congestion Respiratory: Denies: shortness of breath Cardiovascular: Denies: chest pain Gastrointestinal/Abdominal: Denies: nausea, vomiting, diarrhea Genitourinary: Reports: other - no harris Neurologic: Denies: headache Psychiatric: Denies: depression Skin: Denies: rash Hematologic: Denies: bleeding Musculoskeletal: Denies: pain Allergies: Coded Allergies: No Known Allergies (Unverified , 06/26/19) Objective Vital Signs Last 24 Hour Vital Signs Date Time Temp Pulse Resp B/P (MAP) Pulse Ox O2 Delivery O2 Flow Rate FiO2 06/30/19 16:00 55 06/30/19 16:00 97.0 71 18 152/75 (100) 98 06/30/19 15:00 97.8 69 18 177/79 100 Room Air 69 69 06/30/19 14:35 63 20 163/81 100 Room Air 63 63 06/30/19 14:30 64 17 163/81 100 Room Air 64 64 06/30/19 14:20 69 15 163/81 100 Room Air 69 69 06/30/19 14:10 72 18 163/81 100 Room Air 72 72 06/30/19 14:00 79 20 163/81 100 Simple Mask 6 79 79 06/30/19 13:54 93 18 100 06/30/19 13:53 93 16 100 06/30/19 13:50 97.6 83 16 165/107 100 Simple Mask 6 83 83 06/30/19 09:27 73 157/91 06/30/19 09:00 Room Air 06/30/19 08:00 73 06/30/19 08:00 98.1 78 20 157/91 (113) 96 06/30/19 07:01 96 Room Air 21 06/30/19 07:01 85 18 96 Room Air 21 06/30/19 04:00 97.7 76 18 153/88 (109) 98 06/30/19 04:00 72 06/30/19 00:00 70 06/30/19 00:00 97.6 81 18 141/74 (96) 96 06/29/19 21:23 82 112/55 06/29/19 21:00 Room Air 06/29/19 20:17 86 18 98 Room Air 21 06/29/19 20:17 98 Room Air 21 06/29/19 20:00 98.6 82 17 112/55 (74) 98 06/29/19 20:00 88 Height (Feet): 5 Height (Inches): 5.00 Weight (Pounds): 138 General Appearance: no acute distress HEENT: normocephalic, atraumatic, anicteric, mucous membranes moist Respiratory/Chest: lungs clear, normal breath sounds, no respiratory distress, no accessory muscle use Cardiovascular: normal rate, regular rhythm, no gallop/murmur, no JVD Abdomen: normal bowel sounds, soft, non tender, no organomegaly, non distended Genitourinary: other - no harris Extremities: no cyanosis Skin: no rash Neurologic/Psychiatric: jewelry facer II-XII grossly normal, no motor/sensory deficits, alert, oriented x 3, responsive Lymphatic: no neck adenopathy Musculoskeletal: no effusion Objective CT scan abdomen and pelvis: Impression: Findings consistent with acute appendicitis. There are questionably 2 small adjacent gas bubbles which are more likely artifactual than real but could indicate focal microperforation. However, there is no evidence of periappendiceal abscess. 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 Not definitely related to any adjacent organs. The possibility of unusual cystic neoplasm should also be considered. Adjacent 1.7 cm mesenteric root mass demonstrating nonspecific soft tissue attenuation. Likewise nonspecific, neoplasm not excludable Nonspecific prominent retroperitoneal nodes Borderline splenomegaly Atrophic left kidney Grade 1-2 spondylolisthesis of L4 on L5 without evidence of spondylolysis. There is associated secondary degenerative change Cardiomegaly Pericardial effusion Chest x-ray - Procedure: XRAY Chest 1v Indication: Chest pain Technique: One view of the chest Comparison: none Findings: Patient's heart is enlarged. Patient's hand obscures the left lung base. Atelectatic changes or scarring are seen in the bilateral perihilar regions. Granulomas calcifications are seen in the right midlung. No acute infiltrates, effusions, or congestion. Impression: Cardiomegaly No acute process Evidence of old granulomatous disease Microbiology Date/Time Source Procedure Growth Status 06/29/19 05:50 Blood Blood Culture - Preliminary NO GROWTH AFTER 24 HOURS Resulted 06/26/19 18:20 Urine,Clean Catch Urine Culture - Final NO GROWTH AFTER 48 HOURS Complete Microbiology Date/Time Source Procedure Growth Status 06/29/19 05:50 Blood Blood Culture - Preliminary NO GROWTH AFTER 24 HOURS Resulted 06/29/19 05:40 Blood Blood Culture - Preliminary NO GROWTH AFTER 24 HOURS Resulted 06/28/19 07:25 Blood Blood Culture - Preliminary NO GROWTH AFTER 48 HOURS Resulted 06/28/19 07:15 Blood Blood Culture - Preliminary NO GROWTH AFTER 48 HOURS Resulted initial blood cultures - e.coli Laboratory Tests Test 06/30/19 06:05 White Blood Count 4.2 K/UL (4.8-10.8) L Red Blood Count 3.53 M/UL (4.70-6.10) L Hemoglobin 12.2 G/DL (14.2-18.0) L Hematocrit 34.9 % (42.0-52.0) L Mean Corpuscular Volume 99 FL (80-99) Mean Corpuscular Hemoglobin 34.6 PG (27.0-31.0) H Mean Corpuscular Hemoglobin Concent 35.0 G/DL (32.0-36.0) Red Cell Distribution Width 12.0 % (11.6-14.8) Platelet Count 82 K/UL (150-450) L Mean Platelet Volume 7.0 FL (6.5-10.1) Neutrophils (%) (Auto) % (45.0-75.0) Lymphocytes (%) (Auto) % (20.0-45.0) Monocytes (%) (Auto) % (1.0-10.0) Eosinophils (%) (Auto) % (0.0-3.0) Basophils (%) (Auto) % (0.0-2.0) Differential Total Cells Counted 100 Neutrophils % (Manual) 79 % (45-75) H Lymphocytes % (Manual) 14 % (20-45) L Monocytes % (Manual) 5 % (1-10) Eosinophils % (Manual) 2 % (0-3) Basophils % (Manual) 0 % (0-2) Band Neutrophils 0 % (0-8) Platelet Estimate Decreased L Platelet Morphology Normal Red Blood Cell Morphology Normal Erythrocyte Sedimentation Rate 67 MM/HR (0-20) H Prothrombin Time 12.2 SEC (9.30-11.50) H Prothromb Time International Ratio 1.2 (0.9-1.1) H Activated Partial Thromboplast Time 31 SEC (23-33) Sodium Level 142 MMOL/L (136-145) Potassium Level 4.1 MMOL/L (3.5-5.1) Chloride Level 107 MMOL/L (98-107) Carbon Dioxide Level 27 MMOL/L (21-32) Anion Gap 8 mmol/L (5-15) Blood Urea Nitrogen 20 mg/dL (7-18) H Creatinine 1.4 MG/DL (0.55-1.30) H Estimat Glomerular Filtration Rate 48.2 mL/min (>60) Glucose Level 119 MG/DL (74-106) H Calcium Level 8.8 MG/DL (8.5-10.1) Total Bilirubin 0.5 MG/DL (0.2-1.0) Aspartate Amino Transf (AST/SGOT) 33 U/L (15-37) Alanine Aminotransferase (ALT/SGPT) 38 U/L (12-78) Alkaline Phosphatase 74 U/L (46-116) C-Reactive Protein, Quantitative 5.9 mg/dL (0.00-0.90) H Total Protein 6.3 G/DL (6.4-8.2) L Albumin 2.7 G/DL (3.4-5.0) L Globulin 3.6 g/dL Albumin/Globulin Ratio 0.8 (1.0-2.7) L Current Medications Medications (Trade) Dose Ordered Sig/Chicho Route PRN Reason Start Time Stop Time Status Last Admin Dose Admin Acetaminophen (Tylenol) 650 mg Q4H PRN ORAL Mild Pain (Pain Scale 1-3) 06/28/19 14:14 07/28/19 14:13 Acetaminophen (Tylenol) 650 mg Q4H PRN ORAL fever 06/28/19 14:14 07/28/19 14:13 Acetaminophen/ Hydrocodone Bitart (Porter 5/325) 1 tab Q1H PRN ORAL Mild Pain (Pain Scale 1-3) 06/30/19 12:15 06/30/19 20:00 Acetaminophen/ Hydrocodone Bitart (Porter 7.5/325) 1 tab Q1H PRN ORAL Moderate Pain (Pain Scale 4-6) 06/30/19 12:15 06/30/19 20:00 Al Hydroxide/Mg Hydroxide (Mylanta) 15 ml Q1H PRN ORAL gi upset 06/30/19 12:15 06/30/19 20:00 Albuterol/ Ipratropium (Albuterol/ Ipratropium) 3 ml Q4H PRN HHN Shortness of Breath 06/28/19 14:15 07/03/19 14:14 Atropine Sulfate (Atropine 0.4mg/ ml) 0.5 mg Q5M PRN IVP HR<40 BPM 06/30/19 12:15 06/30/19 20:00 Carvedilol (Coreg) 6.25 mg EVERY 12 HOURS ORAL 06/28/19 21:00 07/28/19 20:59 06/30/19 09:27 Dextrose (Dextrose 50%) 25 ml Q30M PRN IV Hypoglycemia 06/28/19 14:30 07/27/19 00:00 Dextrose (Dextrose 50%) 50 ml Q30M PRN IV Hypoglycemia 06/28/19 14:30 07/27/19 00:00 Diphenhydramine HCl (Benadryl) 25 mg Q15M PRN IVP Itching 06/30/19 12:15 06/30/19 20:00 Fentanyl Citrate (Sublimaze 100 mcg/2 mL) 25 mcg Q10M PRN IV Moderate Pain (Pain Scale 4-6) 06/30/19 12:15 06/30/19 20:00 Finasteride (Proscar) 5 mg DAILY ORAL 06/29/19 09:00 07/29/19 08:59 06/30/19 09:27 Hydralazine HCl (Apresoline) 5 mg Q30M PRN IV SBP>160 / DBP>90 06/30/19 12:15 06/30/19 20:00 Hydromorphone HCl (Dilaudid) 0.5 mg Q15M PRN IVP Severe Pain (Pain Scale 7-10) 06/30/19 12:15 06/30/19 20:00 Ketorolac Tromethamine (Toradol 30mg) 15 mg Q1H PRN IV Moderate Breakthru Pain (5-7) 06/30/19 12:15 06/30/19 20:00 Ketorolac Tromethamine (Toradol 30mg) 30 mg Q1H PRN IV Severe Breakthru Pain (>7) 06/30/19 12:15 06/30/19 20:00 Labetalol HCl (Normodyne) 5 mg Q10M PRN IV SBP>160 / DBP>90 06/30/19 12:15 06/30/19 20:00 Lorazepam (Ativan 2mg/ml 1ml) 1 mg Q15M PRN IV For Anxiety 06/30/19 12:15 06/30/19 20:00 Meperidine HCl (Demerol) 25 mg Q5M PRN IV SHIVERING.MAY REPEAT X 1 06/30/19 12:15 06/30/19 20:00 Metoclopramide HCl (Reglan) 10 mg Q1H PRN IVP Nausea & Vomiting 06/30/19 12:15 06/30/19 20:00 Midazolam HCl (Versed 2mg/2ml vial) 1 mg Q15M PRN IVP For Anxiety 06/30/19 12:15 06/30/19 20:00 Morphine Sulfate (Morphine Sulfate) 4 mg Q4H PRN IVP pain score 7-10 06/30/19 14:45 07/07/19 14:44 Ondansetron HCl (Zofran) 4 mg Q1H PRN IVP Nausea & Vomiting 06/30/19 12:15 06/30/19 20:00 Ondansetron HCl (Zofran) 4 mg Q6H PRN IVP Nausea & Vomiting 06/28/19 14:15 07/28/19 14:14 Oxycodone/ Acetaminophen (Percocet 5-325) 1 tab Q1H PRN ORAL Severe Pain (Pain Scale 7-10) 06/30/19 12:15 06/30/19 20:00 Piperacillin Sod/ Tazobactam Sod 3.375 gm/Dextrose 100 ml @ 25 mls/hr EVERY 8 HOURS IVPB 06/28/19 14:16 07/05/19 14:15 06/30/19 15:19 Polyethylene Glycol (Miralax) 17 gm HSPRN PRN ORAL Constipation 06/28/19 14:15 07/28/19 14:14 Sodium Chloride 1,000 ml @ 100 mls/hr Q10H IV 06/29/19 20:15 07/29/19 20:14 06/30/19 16:58 Tamsulosin HCl (Flomax) 0.4 mg DAILY ORAL 06/29/19 09:00 07/29/19 08:59 06/30/19 09:27 Sohail Leung MD Jun 30, 2019 19:22
--- NOTE | 2019-06-30 19:30 | NUR ---
NURSE NOTES: Received patient from Min RN. Patient in bed, on room air, no signs of respiratory distress. NS infusing at 100ml/hr via left forearm 20gauge iv. Bed in low position, locked, bed alarm on, call light within reach.
--- NOTE | 2019-06-30 19:40 | NUR ---
HAND-OFF: Report given to Gustavo YOUNG. Pt remains stable.
--- NOTE | 2019-06-30 22:45 | Operative Note - Dictated ---
DATE OF OPERATION: 06/30/2019 PREOPERATIVE DIAGNOSES: 1. Acute appendicitis. 2. Peritoneal cyst. 3. Mesenteric mass. POSTOPERATIVE DIAGNOSES: 1. Acute appendicitis. 2. Peritoneal cyst. 3. Mesenteric mass. OPERATIONS PERFORMED: 1. Laparoscopic appendectomy. 2. Drainage of peritoneal cyst. 3. Excision of peritoneal mesenteric cyst/mass. ATTENDING SURGEON: Shemar Wright M.D. INSTRUCTOR BUSINESS EDUCATION: None. ANESTHESIOLOGIST: Lebron Youngblood M.D. ANESTHESIA: General ELEMENTARY SCIENCE TEACHER. ESTIMATED BLOOD LOSS: Minimal. IV FLUIDS: Please see anesthesia records. COMPLICATIONS: None. DRAINS: None. COUNTS: Sponge and needle count correct x2. SPECIMENS: 1. Appendix. 2. Peritoneal cyst fluid for cytology and microbiology. 3. Peritoneal mesenteric cyst/mass. WOUND CLASSIFICATION: Class 3. IV FLUIDS: Please see anesthesia records. DRAINS: MIRANDA drain left in pelvis. INDICATIONS FOR PROCEDURE: This is an 83-year-old male who presented to [facility] septic and was identified to have acute appendicitis and mesenteric mass as well as peritoneal cyst. Given these findings, surgery was indicated and recommended. Proper discussion was had with the multidisciplinary medical teams and surgery was indicated, recommended, and scheduled for 06/30/2019. Risks, benefits, and alternatives were discussed with the patient and his next of kin, which is his nephew, Mr. Patti Bonilla. OPERATIVE NOTE: The patient was taken to the operating room and placed on the operating table in supine position with left arm tucked. All bony prominences were well padded. SCDs placed. Preoperative time-out was taken to identify the patient, procedure, operative staff, and surgical staff. General anesthesia was induced. The patient was intubated. The abdomen was clipped, prepped, and draped in the standard surgical fashion. An infraumbilical incision was made and carried down to the fascia, was elevated and incised. Entry into the abdomen was obtained using open Kenna technique without complication. A 12 mm Kenna trocar was inserted. The abdomen was insufflated to 12 to 15 mmHg. The patient tolerated the insufflation well. Laparoscope was inserted. The abdomen was inspected. Secondary trocars were placed under direct visualization beginning with a 12 mm left lower quadrant followed by 5 mm suprapubic. In inspecting the abdomen, there was no peritoneal seeding, significant masses, or signs of any cancerous mets identified. The liver looked otherwise normal. In the left lower quadrant, there was a large cystic fluid in mesentery and peritoneal cyst mass. In the right lower quadrant, there was inflamed appendix clearly identified. The cecum was identified, followed down with obtaining a confluence where the base of the appendix was noted. The appendix was grasped and the base was identified. A window was made between the base of the appendix and mesoappendix. A laparoscopic linear stapler was used and the base of the appendix was divided without complication. The mesoappendix was divided using laparoscopic linear stapler as well. Laparoscopic clips were used to obtain proper hemostasis from both appendiceal mesentery as well as from staple base. Following this, appendix was placed in the endoscopic retrieval bag and removed from the abdomen using the left lower quadrant port site. Hemostasis was noted, no leakage abnormality and good viable tissue identified. We turned our attention then to the mesentery and evaluated roots of mesentery that recurred. No significant masses could be identified, given near the Harry as seen on the CT. In the left lower quadrant, there was a mesenteric cystic fluid collection/mass abutting the sigmoid colon mesentery in the perineum. This was drained and a greenish murky fluid was evacuated, sent for both microbiology and cytology. The fluid was suctioned out and then the cyst capsule was clearly identified. The cyst capsule was excised in whole and sent to pathology for review. Hemostasis was inspected for and noted. Following this, decision was made to leave a drain. The suprapubic port site was used to leave a 19-Czech Wang drain into the pelvis. Abdomen was irrigated and suctioned until clear. At this time, we began the conclusion of our procedure. Secondary trocars were removed under direct visualization. Umbilical trocar site removed and the abdomen desufflated. Local anesthetic was infiltrated throughout the procedure for the patient's comfort. The umbilical trocar site and left lower quadrant port sites were reapproximated using [id number] 0 Vicryl sutures. The skin was reapproximated using 4-0 Monocryl subcuticular interrupted sutures. Benzoin and Steri-Strips were applied followed by dressings. The drain was sutured in place using a 2-0 nylon suture. The patient tolerated the procedure well, was extubated, and taken to postanesthetic care unit in stable condition. Shemar Crystal Wright DR: JOSÉ LUIS JOB#: [id number] CC:
[2019-07-01] VITALS: BP 118/54
[2019-07-01 04:00] VITALS: BP 148/78
--- NOTE | 2019-07-01 06:58 | NUR ---
NURSE NOTES: Received report from Gustavo YOUNG. Pt in bed awake and oriented x3 and able to make needs known but forgetful. IV site in LFA 20G running with NS @100ml/hr patent and asymptomatic. On room. No signs of bleeding or infection noted on surgical wound. Bed in lowest position and locked. Call light within easy reach. Reminded the patient for using call light for assist. Will continue to plan of care.
[2019-07-01 07:57] LABS: HEMATOCRIT 35.1 % (42.0-52.0); HEMOGLOBIN 12.1 G/DL (14.2-18.0); MEAN CORPUSCULAR VOLUME 100 FL (80-99); PLATELET COUNT 82 K/UL (150-450); RED BLOOD COUNT 3.51 M/UL (4.70-6.10); WHITE BLOOD COUNT 4.5 K/UL (4.8-10.8)
[2019-07-01 08:00] VITALS: BP 131/89
[2019-07-01] MEDS: Tamsulosin 0.4mg cap ORAL SCH (08:16)
[2019-07-01] MEDS: Carvedilol 6.25mg Tab ORAL SCH ×2 (08:16→21:14)
[2019-07-01 08:19] LABS: ANION GAP 7 mmol/L (5-15); BLOOD UREA NITROGEN 18 mg/dL (7-18); CALCIUM 8.4 MG/DL (8.5-10.1); CARBON DIOXIDE 28 MMOL/L (21-32); CHLORIDE 108 MMOL/L (98-107); CREATININE 1.2 MG/DL (0.55-1.30); POTASSIUM 4.1 MMOL/L (3.5-5.1); SODIUM 142 MMOL/L (136-145)
--- NOTE | 2019-07-01 09:09 | Cardiac Electrophysiology PN ---
Assessment/Plan Assessment/Plan 1. Elevated BNP of more than 5000, possible congestive heart failure due to diastolic dysfunction. Echo EF 55% 2. HTN. On Coreg 6.25 bid 3. Atrial fib with RVR. Continue Coreg 6.25 bid. Resume coumadin when OK with Dr Wright 4. Gram-negative bacteremia, could be from appendicitis. S/P appendectomy by Dr Mo 06/30/19 The patient is on Abx per Dr. Leung. Echocardiogram didn't show any vegetations on the valves 5. COPD, on albuterol. 6. Thrombocytopenia [address] Brea WARD RN and Dr Wright Subjective Subjective In atrial fib with cotrolled rate. No CP or SOB. S/P appendectomy yesterday. On soft diet now. Yanked out his MIRANDA drain Objective Last 24 Hour Vital Signs Date Time Temp Pulse Resp B/P (MAP) Pulse Ox O2 Delivery O2 Flow Rate FiO2 07/01/19 08:44 Room Air 07/01/19 08:16 89 131/89 07/01/19 08:00 98.7 89 18 131/89 (103) 98 07/01/19 07:45 95 Room Air 21 07/01/19 07:45 79 18 95 Room Air 21 07/01/19 04:00 69 07/01/19 04:00 97.9 98 18 148/78 (101) 96 07/01/19 00:00 71 07/01/19 00:00 97.6 78 19 118/54 (75) 98 06/30/19 21:48 96 Room Air 21 06/30/19 21:48 76 18 96 Room Air 21 06/30/19 21:42 55 140/80 06/30/19 21:00 Room Air 06/30/19 20:00 72 06/30/19 20:00 98.2 20 140/80 (100) 96 06/30/19 16:00 55 06/30/19 16:00 97.0 71 18 152/75 (100) 98 06/30/19 15:00 97.8 69 18 177/79 100 Room Air 69 69 06/30/19 14:35 63 20 163/81 100 Room Air 63 63 06/30/19 14:30 64 17 163/81 100 Room Air 64 64 2/14/20 14:20 69 15 163/81 100 Room Air 69 69 06/30/19 14:10 72 18 163/81 100 Room Air 72 72 06/30/19 14:00 79 20 163/81 100 Simple Mask 6 79 79 06/30/19 13:54 93 18 100 06/30/19 13:53 93 16 100 06/30/19 13:50 97.6 83 16 165/107 100 Simple Mask 6 83 83 06/30/19 09:27 73 157/91 Intake and Output 06/30/19 07/01/19 19:00 07:00 Intake Total 150 ml Output Total 860 ml 1200 ml Balance -710 ml -1200 ml IV Total 150 ml Output Urine Total 800 ml 1200 ml Drainage Total 60 ml Laboratory Tests Test 07/01/19 06:00 White Blood Count 4.5 K/UL (4.8-10.8) L Red Blood Count 3.51 M/UL (4.70-6.10) L Hemoglobin 12.1 G/DL (14.2-18.0) L Hematocrit 35.1 % (42.0-52.0) L Mean Corpuscular Volume 100 FL (80-99) H Mean Corpuscular Hemoglobin 34.5 PG (27.0-31.0) H Mean Corpuscular Hemoglobin Concent 34.6 G/DL (32.0-36.0) Red Cell Distribution Width 12.0 % (11.6-14.8) Platelet Count 82 K/UL (150-450) L Mean Platelet Volume 7.6 FL (6.5-10.1) Neutrophils (%) (Auto) % (45.0-75.0) Lymphocytes (%) (Auto) % (20.0-45.0) Monocytes (%) (Auto) % (1.0-10.0) Eosinophils (%) (Auto) % (0.0-3.0) Basophils (%) (Auto) % (0.0-2.0) Neutrophils % (Manual) Pending Lymphocytes % (Manual) Pending Platelet Estimate Pending Platelet Morphology Pending Sodium Level 142 MMOL/L (136-145) Potassium Level 4.1 MMOL/L (3.5-5.1) Chloride Level 108 MMOL/L (98-107) H Carbon Dioxide Level 28 MMOL/L (21-32) Anion Gap 7 mmol/L (5-15) Blood Urea Nitrogen 18 mg/dL (7-18) Creatinine 1.2 MG/DL (0.55-1.30) Estimat Glomerular Filtration Rate 57.5 mL/min (>60) Glucose Level 99 MG/DL (74-106) Calcium Level 8.4 MG/DL (8.5-10.1) L Microbiology Date/Time Source Procedure Growth Status 06/29/19 05:50 Blood Blood Culture - Preliminary NO GROWTH AFTER 24 HOURS Resulted 06/29/19 05:40 Blood Blood Culture - Preliminary NO GROWTH AFTER 24 HOURS Resulted Objective HEAD AND NECK: Showed no JVD. LUNGS: Clear. CARDIOVASCULAR: Irregular S1 and S2 with no gallop or murmur. ABDOMEN: Soft and nontender.S/P Lap Apy. EXTREMITIES: No pitting edema. Pro Scherer MD Jul 01, 2019 09:09
[2019-07-01 12:00] VITALS: BP 142/75
--- NOTE | 2019-07-01 14:08 | Surgery Progress Note ---
Surgery Progress Note Subjective Procedure Performed lap appy drainage of peritoneal cyst excision of perioneal mesenteric cyst/mass Additional Comments no acute events comfortable stable pulled drain soon post op. stable labs okay tolerating diet Objective Last 24 Hour Vital Signs Date Time Temp Pulse Resp B/P (MAP) Pulse Ox O2 Delivery O2 Flow Rate FiO2 07/01/19 12:00 97.5 75 18 142/75 (97) 97 07/01/19 12:00 75 07/01/19 08:44 Room Air 07/01/19 08:16 89 131/89 07/01/19 08:00 98.7 89 18 131/89 (103) 98 07/01/19 08:00 82 07/01/19 07:45 95 Room Air 21 07/01/19 07:45 79 18 95 Room Air 21 07/01/19 04:00 69 07/01/19 04:00 97.9 98 18 148/78 (101) 96 07/01/19 00:00 71 07/01/19 00:00 97.6 78 19 118/54 (75) 98 06/30/19 21:48 96 Room Air 21 06/30/19 21:48 76 18 96 Room Air 21 06/30/19 21:42 55 140/80 06/30/19 21:00 Room Air 06/30/19 20:00 72 06/30/19 20:00 98.2 20 140/80 (100) 96 06/30/19 16:00 55 06/30/19 16:00 97.0 71 18 152/75 (100) 98 06/30/19 15:00 97.8 69 18 177/79 100 Room Air 69 69 06/30/19 14:35 63 20 163/81 100 Room Air 63 63 06/30/19 14:30 64 17 163/81 100 Room Air 64 64 06/30/19 14:20 69 15 163/81 100 Room Air 69 69 06/30/19 14:10 72 18 163/81 100 Room Air 72 72 I&O Intake and Output 06/30/19 07/01/19 19:00 07:00 Intake Total 150 ml Output Total 860 ml 1200 ml Balance -710 ml -1200 ml IV Total 150 ml Output Urine Total 800 ml 1200 ml Drainage Total 60 ml Dressing: dry Wound: clean Cardiovascular: RSR Respiratory: clear Abdomen: soft, non-tender, present bowel sounds Extremities: no tenderness, no cyanosis Laboratory Tests Test 07/01/19 06:00 White Blood Count 4.5 K/UL (4.8-10.8) L Red Blood Count 3.51 M/UL (4.70-6.10) L Hemoglobin 12.1 G/DL (14.2-18.0) L Hematocrit 35.1 % (42.0-52.0) L Mean Corpuscular Volume 100 FL (80-99) H Mean Corpuscular Hemoglobin 34.5 PG (27.0-31.0) H Mean Corpuscular Hemoglobin Concent 34.6 G/DL (32.0-36.0) Red Cell Distribution Width 12.0 % (11.6-14.8) Platelet Count 82 K/UL (150-450) L Mean Platelet Volume 7.6 FL (6.5-10.1) Neutrophils (%) (Auto) % (45.0-75.0) Lymphocytes (%) (Auto) % (20.0-45.0) Monocytes (%) (Auto) % (1.0-10.0) Eosinophils (%) (Auto) % (0.0-3.0) Basophils (%) (Auto) % (0.0-2.0) Differential Total Cells Counted 100 Neutrophils % (Manual) 77 % (45-75) H Lymphocytes % (Manual) 14 % (20-45) L Monocytes % (Manual) 9 % (1-10) Eosinophils % (Manual) 0 % (0-3) Basophils % (Manual) 0 % (0-2) Band Neutrophils 0 % (0-8) Platelet Estimate Decreased L Platelet Morphology Normal Red Blood Cell Morphology Normal Sodium Level 142 MMOL/L (136-145) Potassium Level 4.1 MMOL/L (3.5-5.1) Chloride Level 108 MMOL/L (98-107) H Carbon Dioxide Level 28 MMOL/L (21-32) Anion Gap 7 mmol/L (5-15) Blood Urea Nitrogen 18 mg/dL (7-18) Creatinine 1.2 MG/DL (0.55-1.30) Estimat Glomerular Filtration Rate 57.5 mL/min (>60) Glucose Level 99 MG/DL (74-106) Calcium Level 8.4 MG/DL (8.5-10.1) L Plan Problems: (1) Acute appendicitis Assessment & Plan: This is a 83-year-old male with acute appendicitis. Afebrile, hemodynamic stable, A. fib with RVR on Coumadin, shift neutrophil, mesenteric mass, abdominal cystic fluid collection. On examination patient is tender in the right lower quadrant. Patient is bacteremic. POD #1` doing well eating well pt pulled drain no n/v/f/c labs stable resume anticoag dressing prn (2) Mesenteric mass Assessment & Plan: Findings: The appendix is markedly dilated, measuring up to 15 mm transverse diameter. There is increased attenuation of the periappendiceal fat. There are equivocally 2 tiny gas bubbles adjacent to it, although suspect that these are artifacts. No loculated periappendiceal fluid is evident. Ingested contrast has only traversed a portion of the small bowel. However, there is no small bowel distention or small bowel wall thickening demonstrated. No evidence of colonic diverticulosis or diverticulitis. No free or loculated intraperitoneal gas or fluid is evident. Distal esophagus, stomach, duodenum are unremarkable. A large unilocular cystic mass is seen in the upper pelvis. This measures 10 x 6.4 x 7.5 cm in diameter. Immediately cephalad to this is a mass that measures just slightly higher than fluid attenuation, measures 1.7 cm. A small 2 x 0.7 cm structure is seen immediately anterior to it. However, the mass does not appear to be contiguous with any organs. It does appear to be adjacent to the sigmoid colon but nonetheless appears to be separate from it. It is also adjacent to the anterior upper sacrum There is a small fat-containing direct right inguinal hernia. Lack of IV contrast limits assessment of the solid organs. The gallbladder is distended. No definite gallstones. The liver is grossly unremarkable. The pancreas is somewhat atrophic. The spleen is borderline enlarged, measuring 14 cm long axis dimension. The adrenals are unremarkable. Left kidney is somewhat atrophic. There are prominent but not frankly enlarged retroperitoneal nodes. The prostate is slightly prominent. The bladder is unremarkable. The heart is enlarged. There is a small amount of pericardial fluid. There are dependent posterior pulmonary atelectatic changes and possibly some pulmonary parenchymal scarring. Granulomas calcification is seen at the left lung base. The bones demonstrate degenerative spondylosis changes. There is grade 1-2 spondylolisthesis of L4 on L5 without evidence of pars defect. There is secondary degenerative change Impression: Findings consistent with acute appendicitis. There are questionably 2 small adjacent gas bubbles which are more likely artifactual than real but could indicate focal microperforation. However, there is no evidence of periappendiceal abscess. 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 Not definitely related to any adjacent organs. The possibility of unusual cystic neoplasm should also be considered. Adjacent 1.7 cm mesenteric root mass demonstrating nonspecific soft tissue attenuation. Likewise nonspecific, neoplasm not excludable Nonspecific prominent retroperitoneal nodes Borderline splenomegaly Atrophic left kidney Grade 1-2 spondylolisthesis of L4 on L5 without evidence of spondylolysis. There is associated secondary degenerative change Cardiomegaly Pericardial effusion (3) Abdominal cyst (4) Sepsis Shemar Wright Jul 01, 2019 14:08
--- NOTE | 2019-07-01 14:26 | General Progress Note ---
Assessment/Plan Status: stable Assessment/Plan: Assessment #Acute Appendicitis s/p emergent Lap Appendectomy, POD#1, initial concern for cystic mass, no concern for malignancy per Surgery #Severe Sepsis 2/2 Walker Sensitive Ecoli Bacteremia 2/2 Above w/ associated Lactic Acidosis #Atrial Fibrillation , on home coumadin, initially held for surgery, restarted --> CHADS VASC 3, preserved EF noted on Echo #HTN #Acute Renal Injury on Chronic Kidney Disease; Renal US w/ Chronic Renal Medical Disease #Thrombocytopenia, Anemia of chronic disease, non blood transfusion requiring #COPD #Incidental Meningioma--> monitor #Pre-Diabetes #BPH Plan Consults include Surgery, Cardiology, Hematology, and Infectious Disease Continue IV AB w/ Zosyn, anticipate patient will require extended course, vs SNF Cultures from Appendectomy still pending Monitor platelet count given coumadin has now been restarted Continue Coreg, PRN Hydralazine Tamsulosin and Finasteride Supportive measures, pain control Advance Diet per surgery No DVT ppx as patient is on coumadin Subjective Date patient seen: Jul 01, 2019 Time patient seen: 10:00 ROS Limited/Unobtainable: No Gastrointestinal/Abdominal: Reports: abdominal pain Allergies: Coded Allergies: No Known Allergies (Unverified , 06/26/19) Subjective Patient visited this am. Viewed up and walking around, NAD. Scars are healing well with minimal bruising , denies nausea and vomiting Objective Last 24 Hour Vital Signs Date Time Temp Pulse Resp B/P (MAP) Pulse Ox O2 Delivery O2 Flow Rate FiO2 07/01/19 12:00 97.5 75 18 142/75 (97) 97 07/01/19 12:00 75 07/01/19 08:44 Room Air 07/01/19 08:16 89 131/89 07/01/19 08:00 98.7 89 18 131/89 (103) 98 07/01/19 08:00 82 07/01/19 07:45 95 Room Air 21 07/01/19 07:45 79 18 95 Room Air 21 07/01/19 04:00 69 07/01/19 04:00 97.9 98 18 148/78 (101) 96 07/01/19 00:00 71 07/01/19 00:00 97.6 78 19 118/54 (75) 98 06/30/19 21:48 96 Room Air 21 06/30/19 21:48 76 18 96 Room Air 21 06/30/19 21:42 55 140/80 06/30/19 21:00 Room Air 06/30/19 20:00 72 06/30/19 20:00 98.2 20 140/80 (100) 96 06/30/19 16:00 55 06/30/19 16:00 97.0 71 18 152/75 (100) 98 06/30/19 15:00 97.8 69 18 177/79 100 Room Air 69 69 06/30/19 14:35 63 20 163/81 100 Room Air 63 63 06/30/19 14:30 64 17 163/81 100 Room Air 64 64 06/30/19 14:20 69 15 163/81 100 Room Air 69 69 06/30/19 14:10 72 18 163/81 100 Room Air 72 72 06/30/19 14:00 79 20 163/81 100 Simple Mask 6 79 79 Intake and Output 06/30/19 07/01/19 19:00 07:00 Intake Total 150 ml Output Total 860 ml 1200 ml Balance -710 ml -1200 ml IV Total 150 ml Output Urine Total 800 ml 1200 ml Drainage Total 60 ml Laboratory Tests 07/01/19 06:00: White Blood Count 4.5L, Red Blood Count 3.51L, Hemoglobin 12.1L, Hematocrit 35.1L, Mean Corpuscular Volume 100H, Mean Corpuscular Hemoglobin 34.5H, Mean Corpuscular Hemoglobin Concent 34.6, Red Cell Distribution Width 12.0, Platelet Count 82L, Mean Platelet Volume 7.6, Neutrophils (%) (Auto) , Lymphocytes (%) ( Auto) , Monocytes (%) (Auto) , Eosinophils (%) (Auto) , Basophils (%) (Auto) , Differential Total Cells Counted 100, Neutrophils % (Manual) 77H, Lymphocytes % (Manual) 14L, Monocytes % (Manual) 9, Eosinophils % (Manual) 0, Basophils % ( Manual) 0, Band Neutrophils 0, Platelet Estimate DecreasedL, Platelet Morphology Normal, Red Blood Cell Morphology Normal, Sodium Level 142, Potassium Level 4.1, Chloride Level 108H, Carbon Dioxide Level 28, Anion Gap 7, Blood Urea Nitrogen 18, Creatinine 1.2, Estimat Glomerular Filtration Rate 57.5 , Glucose Level 99, Calcium Level 8.4L Height (Feet): 5 Height (Inches): 5.00 Weight (Pounds): 138 General Appearance: WD/WN EENT: PERRL/EOMI Cardiovascular: irregularly irregular Respiratory/Chest: lungs clear, normal breath sounds, no respiratory distress Abdomen: other - post operative scars noted, healing well Extremities: other - diffuse bruising related to coumadin Neurologic: welfare eligibility worker II-XII grossly normal Objective Dasha Kidd D.O. Jul 01, 2019 14:26
[2019-07-01 16:00] VITALS: BP 130/68
[2019-07-01] MEDS: Piperacillin/Tazobactam 3.375 GM in NS 110 ML IVPB SCH ×2 (16:38→21:15)
[2019-07-01] MEDS ORDERED: Warfarin Sodium 5mg ORAL ONE (17:00)
--- NOTE | 2019-07-01 19:30 | NUR ---
NURSE NOTES: Received report from HANNAH Chapman. Patient was asleep in bed. There were no apparent signs of distress or pain. patient is alert and oriented x3. He is able to ambulate with assistance. Checked IV site patent and flushed. There were no signs of erythema, bleeding, or infiltration. Checked appendectomy site, there was no signs of infection or redness. Bed in the lowest position with brakes on and side rails x3. Call light within reach. Will continue to monitor.
--- NOTE | 2019-07-01 19:32 | NUR ---
HAND-OFF: Report given to Anna/Alexandra YOUNG. Pt remains stable.
[2019-07-01 20:00] VITALS: BP 157/79
[2019-07-02] VITALS (7 sets, daily range): BP systolic 135–163; BP diastolic 69–91
--- NOTE | 2019-07-02 04:37 | NUR ---
NURSE NOTES: Patient is sleeping comfortably in semi- fowlers position. No signs of distress noted at this time.
[2019-07-02] MEDS: Piperacillin/Tazobactam 3.375 GM in NS 110 ML IVPB SCH ×3 (05:19→21:57)
--- NOTE | 2019-07-02 07:44 | NUR ---
HAND-OFF: Report given to HANNAH Mead. Patient is awake sitting on the edge of the bed eating breakfast. In stable condition.
[2019-07-02 08:10] LABS: BASOPHILS % (AUTO) 0.4 % (0.0-2.0); EOSINOPHILS % (AUTO) 1.3 % (0.0-3.0); HEMATOCRIT 34.1 % (42.0-52.0); HEMOGLOBIN 11.9 G/DL (14.2-18.0); LYMPHOCYTES % (AUTO) 19.4 % (20.0-45.0); MEAN CORPUSCULAR VOLUME 99 FL (80-99); MONOCYTES % (AUTO) 8.5 % (1.0-10.0); NEUTROPHILS % (AUTO) 70.4 % (45.0-75.0); PLATELET COUNT 109 K/UL (150-450); RED BLOOD COUNT 3.44 M/UL (4.70-6.10); RED CELL DISTRIBUTION WIDTH 12.2 % (11.6-14.8); WHITE BLOOD COUNT 4.4 K/UL (4.8-10.8)
[2019-07-02 08:18] LABS: INR 1.5 (0.9-1.1)
[2019-07-02 08:39] LABS: PHOSPHORUS 2.8 MG/DL (2.5-4.9)
[2019-07-02 08:40] LABS: ALANINE AMINOTRANSFERASE 35 U/L (12-78); ALBUMIN 2.6 G/DL (3.4-5.0); ALBUMIN/GLOBULIN RATIO 0.7 (1.0-2.7); ALKALINE PHOSPHATASE 66 U/L (46-116); ANION GAP 7 mmol/L (5-15); ASPARTATE AMINO TRANSFERASE 36 U/L (15-37); BILIRUBIN,TOTAL 0.5 MG/DL (0.2-1.0); BLOOD UREA NITROGEN 16 mg/dL (7-18); CALCIUM 8.6 MG/DL (8.5-10.1); CARBON DIOXIDE 29 MMOL/L (21-32); CHLORIDE 108 MMOL/L (98-107); CREATININE 1.3 MG/DL (0.55-1.30); POTASSIUM 3.9 MMOL/L (3.5-5.1); SODIUM 144 MMOL/L (136-145)
[2019-07-02] MEDS: Tamsulosin 0.4mg cap ORAL SCH (09:01)
[2019-07-02] MEDS: Carvedilol 6.25mg Tab ORAL SCH ×2 (09:01→20:38)
--- NOTE | 2019-07-02 09:22 | Cardiac Electrophysiology PN ---
Assessment/Plan Assessment/Plan 1. Elevated BNP > 5000, congestive heart failure due to diastolic dysfunction. EF 55% 2. HTN. On Coreg 6.25 bid 3. Atrial fib with RVR. Continue Coreg 6.25 bid. Resumed coumadin . 4. Gram-negative bacteremia, could be from appendicitis. S/P appendectomy by Dr. Mo 06/30/19 The patient is on Abx per Dr. Leung. Echocardiogram didn't show any vegetations on the valves 5. COPD, on albuterol. 6. Thrombocytopenia [address] Guidry DW RN Subjective Subjective In atrial fib with rate 70s. No CP or SOB. S/P appendectomy 06/30/19. On soft diet. No events Objective Last 24 Hour Vital Signs Date Time Temp Pulse Resp B/P (MAP) Pulse Ox O2 Delivery O2 Flow Rate FiO2 07/02/19 09:01 145 77/70 07/02/19 06:30 84 18 95 Room Air 21 07/02/19 06:30 95 Room Air 21 07/02/19 04:00 72 07/02/19 04:00 98.2 72 18 161/69 (99) 95 07/02/19 00:00 98.0 66 18 160/75 (103) 97 07/02/19 00:00 71 07/01/19 21:14 89 130/68 07/01/19 21:00 Room Air 07/01/19 20:24 95 Room Air 21 07/01/19 20:24 89 18 96 Room Air 21 07/01/19 20:00 75 07/01/19 20:00 98.2 73 19 157/79 (105) 98 07/01/19 16:00 80 07/01/19 16:00 97.5 89 18 130/68 (88) 95 07/01/19 12:00 97.5 75 18 142/75 (97) 97 07/01/19 12:00 75 Intake and Output 07/01/19 07/02/19 19:00 07:00 Intake Total 480 ml 156.3 ml Output Total 200 ml 1400 ml Balance 280 ml -1243.7 ml Intake Oral 480 ml IV Total 156.3 ml Output Urine Total 200 ml 1400 ml # Voids 3 Laboratory Tests Test 07/02/19 06:00 White Blood Count 4.4 K/UL (4.8-10.8) L Red Blood Count 3.44 M/UL (4.70-6.10) L Hemoglobin 11.9 G/DL (14.2-18.0) L Hematocrit 34.1 % (42.0-52.0) L Mean Corpuscular Volume 99 FL (80-99) Mean Corpuscular Hemoglobin 34.6 PG (27.0-31.0) H Mean Corpuscular Hemoglobin Concent 34.9 G/DL (32.0-36.0) Red Cell Distribution Width 12.2 % (11.6-14.8) Platelet Count 109 K/UL (150-450) L Mean Platelet Volume 7.4 FL (6.5-10.1) Neutrophils (%) (Auto) 70.4 % (45.0-75.0) Lymphocytes (%) (Auto) 19.4 % (20.0-45.0) L Monocytes (%) (Auto) 8.5 % (1.0-10.0) Eosinophils (%) (Auto) 1.3 % (0.0-3.0) Basophils (%) (Auto) 0.4 % (0.0-2.0) Prothrombin Time 15.9 SEC (9.30-11.50) H Prothromb Time International Ratio 1.5 (0.9-1.1) H Activated Partial Thromboplast Time 34 SEC (23-33) H Sodium Level 144 MMOL/L (136-145) Potassium Level 3.9 MMOL/L (3.5-5.1) Chloride Level 108 MMOL/L (98-107) H Carbon Dioxide Level 29 MMOL/L (21-32) Anion Gap 7 mmol/L (5-15) Blood Urea Nitrogen 16 mg/dL (7-18) Creatinine 1.3 MG/DL (0.55-1.30) Estimat Glomerular Filtration Rate 52.5 mL/min (>60) Glucose Level 112 MG/DL (74-106) H Calcium Level 8.6 MG/DL (8.5-10.1) Phosphorus Level 2.8 MG/DL (2.5-4.9) Magnesium Level 2.2 MG/DL (1.8-2.4) Total Bilirubin 0.5 MG/DL (0.2-1.0) Aspartate Amino Transf (AST/SGOT) 36 U/L (15-37) Alanine Aminotransferase (ALT/SGPT) 35 U/L (12-78) Alkaline Phosphatase 66 U/L (46-116) Total Protein 6.2 G/DL (6.4-8.2) L Albumin 2.6 G/DL (3.4-5.0) L Globulin 3.6 g/dL Albumin/Globulin Ratio 0.7 (1.0-2.7) L Microbiology Date/Time Source Procedure Growth Status 06/30/19 13:07 Peritoneal Fluid Anaerobic Culture - Preliminary Resulted 06/30/19 13:07 Peritoneal Fluid Gram Stain - Final Resulted 06/30/19 13:07 Peritoneal Fluid Body Fluid Culture - Preliminary NO GROWTH AFTER 24 HOURS Resulted Objective HEAD AND NECK:No JVD. LUNGS: Clear. CARDIOVASCULAR: Irregular S1 and S2 with no gallop or murmur. ABDOMEN: Soft and nontender.S/P Lap Apy. EXTREMITIES: No pitting edema. Pro Scherer MD Jul 02, 2019 09:22
--- NOTE | 2019-07-02 11:51 | Hematology/Onc Progress Note ---
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 Not definitely related to any adjacent organs. The possibility of unusual cystic neoplasm should also be considered. Adjacent 1.7 cm mesenteric root mass demonstrating nonspecific soft tissue attenuation. Likewise nonspecific, neoplasm not excludable --> dw surgery, s/p lap choly--> PENDING RESULTS PATHOLOGY --> hold off anticoag until procedure is done --> hold off on lovenox sq, ok for coumadin # Thrombocytopenia - potential causes multifactorial, evaluate liver and viral etiologies to begin, in this case is related likely to cirrhosis v ascites that is a resultant of liver disease that is chronic. --> Hep panel and HIV ordered --> hiv neg --> US abd to evaluate for cirrhosis and hsm ordered --> reviewed --> Peripheral smear ordered to evaluate for blasts /schistocytes --> abx and other meds have been reviewed --> ok for ppx if plt >50k w/ either heparin or lovenox --> Transfuse if Plt < 20k and fever, or if Plt < 10k without fever --> plt 72--->70k-->109 --> continue anticoag if high risk CHASVasc2 # Anemia of chronic disease due to underlying chronic medical issues, multifactorial v Gi bleed --> Anemia workup has been ordered, rule out gi bleed --> No evidence of hemolysis is noted, peripheral smear has been reviewed. --> Hgb goal >7. Transfuse prn. --> Epogen or iron at this time is not indicated # Coagulopathy with elev inr/ptt --> as per above --> vitk if needs reversal --> chronic as with liver disease # Altered mental status with UTI (urinary tract infection) --> on abx as per id --> currently zosyn # Potential pituitary adenoma with sellar hyperdense lesion that could be further characterized with MRI --> per endo # Afib --> cardiology is following, appreciate recs # Dvt ppx hold coumadin Appreciate consultation and dw Rn Subjective Allergies: Coded Allergies: No Known Allergies (Unverified , 06/26/19) Subjective 06/30: no major changes, off lovenox for now, pending procedure, dr Dr. Wright 2/16: on tele, no acute events, room air, inr 1.5, coumadin Objective Objective Current Medications Medications (Trade) Dose Ordered Sig/Chicho Route PRN Reason Start Time Stop Time Status Last Admin Dose Admin Acetaminophen (Tylenol) 650 mg Q4H PRN ORAL Mild Pain (Pain Scale 1-3) 06/28/19 14:14 07/28/19 14:13 Acetaminophen (Tylenol) 650 mg Q4H PRN ORAL fever 06/28/19 14:14 07/28/19 14:13 Albuterol/ Ipratropium (Albuterol/ Ipratropium) 3 ml Q4H PRN HHN Shortness of Breath 06/28/19 14:15 07/03/19 14:14 Carvedilol (Coreg) 6.25 mg EVERY 12 HOURS ORAL 06/28/19 21:00 07/28/19 20:59 07/02/19 09:01 Dextrose (Dextrose 50%) 25 ml Q30M PRN IV Hypoglycemia 06/28/19 14:30 07/27/19 00:00 Dextrose (Dextrose 50%) 50 ml Q30M PRN IV Hypoglycemia 06/28/19 14:30 07/27/19 00:00 Finasteride (Proscar) 5 mg DAILY ORAL 06/29/19 09:00 07/29/19 08:59 07/02/19 09:01 Morphine Sulfate (Morphine Sulfate) 4 mg Q4H PRN IVP pain score 7-10 06/30/19 14:45 07/07/19 14:44 Ondansetron HCl (Zofran) 4 mg Q6H PRN IVP Nausea & Vomiting 06/28/19 14:15 07/28/19 14:14 Piperacillin Sod/ Tazobactam Sod 3.375 gm/Sodium Chloride 110 ml @ 27.5 mls/hr EVERY 8 HOURS IVPB 07/01/19 14:30 07/06/19 14:29 07/02/19 05:19 Polyethylene Glycol (Miralax) 17 gm HSPRN PRN ORAL Constipation 06/28/19 14:15 07/28/19 14:14 Tamsulosin HCl (Flomax) 0.4 mg DAILY ORAL 06/29/19 09:00 07/29/19 08:59 07/02/19 09:01 Warfarin Sodium (Coumadin per pharmacy) 1 ea DAILY PRN MISC Per rx protocol 07/01/19 11:30 07/31/19 11:29 Warfarin Sodium (Coumadin) 2.5 mg COUMADIN ONCE ORAL 07/02/19 17:00 07/02/19 17:01 Last 24 Hour Vital Signs Date Time Temp Pulse Resp B/P (MAP) Pulse Ox O2 Delivery O2 Flow Rate FiO2 07/02/19 09:01 145 77/70 07/02/19 09:00 Room Air 07/02/19 08:00 81 07/02/19 08:00 98.1 70 18 145/77 (99) 97 07/02/19 06:30 84 18 95 Room Air 21 07/02/19 06:30 95 Room Air 21 07/02/19 04:00 72 07/02/19 04:00 98.2 72 18 161/69 (99) 95 07/02/19 00:00 98.0 66 18 160/75 (103) 97 07/02/19 00:00 71 07/01/19 21:14 89 130/68 07/01/19 21:00 Room Air 07/01/19 20:24 95 Room Air 21 07/01/19 20:24 89 18 96 Room Air 21 07/01/19 20:00 75 07/01/19 20:00 98.2 73 19 157/79 (105) 98 07/01/19 16:00 80 07/01/19 16:00 97.5 89 18 130/68 (88) 95 07/01/19 12:00 97.5 75 18 142/75 (97) 97 07/01/19 12:00 75 07/01/19 08:44 Room Air 07/01/19 08:16 89 131/89 07/01/19 08:00 98.7 89 18 131/89 (103) 98 07/01/19 08:00 82 07/01/19 07:45 95 Room Air 21 07/01/19 07:45 79 18 95 Room Air 21 07/01/19 04:00 69 07/01/19 04:00 97.9 98 18 148/78 (101) 96 07/01/19 00:00 71 07/01/19 00:00 97.6 78 19 118/54 (75) 98 06/30/19 21:48 96 Room Air 21 06/30/19 21:48 76 18 96 Room Air 21 06/30/19 21:42 55 140/80 06/30/19 21:00 Room Air 06/30/19 20:00 72 06/30/19 20:00 98.2 20 140/80 (100) 96 06/30/19 16:00 55 06/30/19 16:00 97.0 71 18 152/75 (100) 98 06/30/19 15:00 97.8 69 18 177/79 100 Room Air 69 69 06/30/19 14:35 63 20 163/81 100 Room Air 63 63 06/30/19 14:30 64 17 163/81 100 Room Air 64 64 06/30/19 14:20 69 15 163/81 100 Room Air 69 69 06/30/19 14:10 72 18 163/81 100 Room Air 72 72 06/30/19 14:00 79 20 163/81 100 Simple Mask 6 79 79 06/30/19 13:54 93 18 100 06/30/19 13:53 93 16 100 06/30/19 13:50 97.6 83 16 165/107 100 Simple Mask 6 83 83 Intake and Output 07/01/19 07/02/19 19:00 07:00 Intake Total 480 ml 156.3 ml Output Total 200 ml 1400 ml Balance 280 ml -1243.7 ml Intake Oral 480 ml IV Total 156.3 ml Output Urine Total 200 ml 1400 ml # Voids 3 Labs Test 06/30/19 06:05 07/01/19 06:00 07/02/19 06:00 White Blood Count 4.2 K/UL (4.8-10.8) 4.5 K/UL (4.8-10.8) 4.4 K/UL (4.8-10.8) Red Blood Count 3.53 M/UL (4.70-6.10) 3.51 M/UL (4.70-6.10) 3.44 M/UL (4.70-6.10) Hemoglobin 12.2 G/DL (14.2-18.0) 12.1 G/DL (14.2-18.0) 11.9 G/DL (14.2-18.0) Hematocrit 34.9 % (42.0-52.0) 35.1 % (42.0-52.0) 34.1 % (42.0-52.0) Mean Corpuscular Volume 99 FL (80-99) 100 FL (80-99) 99 FL (80-99) Mean Corpuscular Hemoglobin 34.6 PG (27.0-31.0) 34.5 PG (27.0-31.0) 34.6 PG (27.0-31.0) Mean Corpuscular Hemoglobin Concent 35.0 G/DL (32.0-36.0) 34.6 G/DL (32.0-36.0) 34.9 G/DL (32.0-36.0) Red Cell Distribution Width 12.0 % (11.6-14.8) 12.0 % (11.6-14.8) 12.2 % (11.6-14.8) Platelet Count 82 K/UL (150-450) 82 K/UL (150-450) 109 K/UL (150-450) Mean Platelet Volume 7.0 FL (6.5-10.1) 7.6 FL (6.5-10.1) 7.4 FL (6.5-10.1) Neutrophils (%) (Auto) % (45.0-75.0) % (45.0-75.0) 70.4 % (45.0-75.0) Lymphocytes (%) (Auto) % (20.0-45.0) % (20.0-45.0) 19.4 % (20.0-45.0) Monocytes (%) (Auto) % (1.0-10.0) % (1.0-10.0) 8.5 % (1.0-10.0) Eosinophils (%) (Auto) % (0.0-3.0) % (0.0-3.0) 1.3 % (0.0-3.0) Basophils (%) (Auto) % (0.0-2.0) % (0.0-2.0) 0.4 % (0.0-2.0) Differential Total Cells Counted 100 100 Neutrophils % (Manual) 79 % (45-75) 77 % (45-75) Lymphocytes % (Manual) 14 % (20-45) 14 % (20-45) Monocytes % (Manual) 5 % (1-10) 9 % (1-10) Eosinophils % (Manual) 2 % (0-3) 0 % (0-3) Basophils % (Manual) 0 % (0-2) 0 % (0-2) Band Neutrophils 0 % (0-8) 0 % (0-8) Platelet Estimate Decreased Decreased Platelet Morphology Normal Normal Red Blood Cell Morphology Normal Normal Erythrocyte Sedimentation Rate 67 MM/HR (0-20) Prothrombin Time 12.2 SEC (9.30-11.50) 15.9 SEC (9.30-11.50) Prothromb Time International Ratio 1.2 (0.9-1.1) 1.5 (0.9-1.1) Activated Partial Thromboplast Time 31 SEC (23-33) 34 SEC (23-33) Sodium Level 142 MMOL/L (136-145) 142 MMOL/L (136-145) 144 MMOL/L (136-145) Potassium Level 4.1 MMOL/L (3.5-5.1) 4.1 MMOL/L (3.5-5.1) 3.9 MMOL/L (3.5-5.1) Chloride Level 107 MMOL/L (98-107) 108 MMOL/L (98-107) 108 MMOL/L (98-107) Carbon Dioxide Level 27 MMOL/L (21-32) 28 MMOL/L (21-32) 29 MMOL/L (21-32) Anion Gap 8 mmol/L (5-15) 7 mmol/L (5-15) 7 mmol/L (5-15) Blood Urea Nitrogen 20 mg/dL (7-18) 18 mg/dL (7-18) 16 mg/dL (7-18) Creatinine 1.4 MG/DL (0.55-1.30) 1.2 MG/DL (0.55-1.30) 1.3 MG/DL (0.55-1.30) Estimat Glomerular Filtration Rate 48.2 mL/min (>60) 57.5 mL/min (>60) 52.5 mL/min (>60) Glucose Level 119 MG/DL (74-106) 99 MG/DL (74-106) 112 MG/DL (74-106) Calcium Level 8.8 MG/DL (8.5-10.1) 8.4 MG/DL (8.5-10.1) 8.6 MG/DL (8.5-10.1) Total Bilirubin 0.5 MG/DL (0.2-1.0) 0.5 MG/DL (0.2-1.0) Aspartate Amino Transf (AST/SGOT) 33 U/L (15-37) 36 U/L (15-37) Alanine Aminotransferase (ALT/SGPT) 38 U/L (12-78) 35 U/L (12-78) Alkaline Phosphatase 74 U/L (46-116) 66 U/L (46-116) C-Reactive Protein, Quantitative 5.9 mg/dL (0.00-0.90) Total Protein 6.3 G/DL (6.4-8.2) 6.2 G/DL (6.4-8.2) Albumin 2.7 G/DL (3.4-5.0) 2.6 G/DL (3.4-5.0) Globulin 3.6 g/dL 3.6 g/dL Albumin/Globulin Ratio 0.8 (1.0-2.7) 0.7 (1.0-2.7) Phosphorus Level 2.8 MG/DL (2.5-4.9) Magnesium Level 2.2 MG/DL (1.8-2.4) Height (Feet): 5 Height (Inches): 5.00 Weight (Pounds): 138 Objective Physical Exam: Vitals: reviewed General: NAD Neck: supple Chest: clear breath sounds bilaterally Cardiovascular: RRR, no s3, s4 Abdomen: soft, nontender, nd Extremities: no cce, normal range of motion Mental: alert Blaine Weathers MD Jul 02, 2019 11:51
--- NOTE | 2019-07-02 11:52 | General Progress Note ---
Assessment/Plan Status: stable Assessment/Plan: Assessment #Acute Appendicitis s/p emergent Lap Appendectomy, POD#2, initial concern for cystic mass, no concern for malignancy per Surgery #Severe Sepsis 2/2 Walker Sensitive Ecoli Bacteremia 2/2 Above w/ associated Lactic Acidosis #Atrial Fibrillation , on home coumadin, initially held for surgery, restarted --> CHADS VASC 3, preserved EF noted on Echo #HTN --> Episode of hypotension on 07/02, likely related to RVR in associated with AFib, resolved #Acute Renal Injury on Chronic Kidney Disease; Renal US w/ Chronic Renal Medical Disease --> improved #Thrombocytopenia, Anemia of chronic disease, non blood transfusion requiring -- > stable since restarting blood thinner #COPD #Incidental Meningioma--> monitor #Pre-Diabetes #BPH Plan Consults include Surgery, Cardiology, Hematology, and Infectious Disease Continue IV AB w/ Zosyn, anticipate patient will require extended course, HH vs SNF Cultures from Appendectomy still pending Monitor platelet count given coumadin has now been restarted -Stable Continue Coreg, PRN Hydralazine Tamsulosin and Finasteride Supportive measures, pain control Advance Diet per surgery No DVT ppx as patient is on coumadin Subjective Date patient seen: Jul 02, 2019 Time patient seen: 10:00 Allergies: Coded Allergies: No Known Allergies (Unverified , 06/26/19) All Systems: reviewed and negative except above Subjective Patient is doing well. Platelets are stable regarding being restarted on blood thinner. Note blood pressure low this am, but has resolved. Patient has been cleared for downgrade to Med Surg. Continue present care. Feel platelets should be monitored one more day since being started on coumadin, but have requested for d/c planning in next 1 to 2 days Objective Last 24 Hour Vital Signs Date Time Temp Pulse Resp B/P (MAP) Pulse Ox O2 Delivery O2 Flow Rate FiO2 07/02/19 09:01 145 77/70 07/02/19 09:00 Room Air 07/02/19 08:00 81 07/02/19 08:00 98.1 70 18 145/77 (99) 97 07/02/19 06:30 84 18 95 Room Air 21 07/02/19 06:30 95 Room Air 21 07/02/19 04:00 72 07/02/19 04:00 98.2 72 18 161/69 (99) 95 07/02/19 00:00 98.0 66 18 160/75 (103) 97 07/02/19 00:00 71 07/01/19 21:14 89 130/68 07/01/19 21:00 Room Air 07/01/19 20:24 95 Room Air 21 07/01/19 20:24 89 18 96 Room Air 21 07/01/19 20:00 75 07/01/19 20:00 98.2 73 19 157/79 (105) 98 07/01/19 16:00 80 07/01/19 16:00 97.5 89 18 130/68 (88) 95 07/01/19 12:00 97.5 75 18 142/75 (97) 97 07/01/19 12:00 75 Intake and Output 07/01/19 07/02/19 19:00 07:00 Intake Total 480 ml 156.3 ml Output Total 200 ml 1400 ml Balance 280 ml -1243.7 ml Intake Oral 480 ml IV Total 156.3 ml Output Urine Total 200 ml 1400 ml # Voids 3 Laboratory Tests 07/02/19 06:00: White Blood Count 4.4L, Red Blood Count 3.44L, Hemoglobin 11.9L, Hematocrit 34.1L, Mean Corpuscular Volume 99, Mean Corpuscular Hemoglobin 34.6H, Mean Corpuscular Hemoglobin Concent 34.9, Red Cell Distribution Width 12.2, Platelet Count 109L, Mean Platelet Volume 7.4, Neutrophils (%) (Auto) 70.4, Lymphocytes ( %) (Auto) 19.4L, Monocytes (%) (Auto) 8.5, Eosinophils (%) (Auto) 1.3, Basophils (%) (Auto) 0.4, Prothrombin Time 15.9H, Prothromb Time International Ratio 1.5H, Activated Partial Thromboplast Time 34H, Sodium Level 144, Potassium Level 3.9, Chloride Level 108H, Carbon Dioxide Level 29, Anion Gap 7, Blood Urea Nitrogen 16, Creatinine 1.3, Estimat Glomerular Filtration Rate 52.5 , Glucose Level 112H, Calcium Level 8.6, Phosphorus Level 2.8, Magnesium Level 2.2, Total Bilirubin 0.5, Aspartate Amino Transf (AST/SGOT) 36, Alanine Aminotransferase (ALT/SGPT) 35, Alkaline Phosphatase 66, Total Protein 6.2L, Albumin 2.6L, Globulin 3.6, Albumin/Globulin Ratio 0.7L Height (Feet): 5 Height (Inches): 5.00 Weight (Pounds): 138 General Appearance: WD/WN, no apparent distress EENT: PERRL/EOMI Cardiovascular: normal rate, irregularly irregular Respiratory/Chest: normal breath sounds, no respiratory distress Abdomen: other - post surgical scars noted, minimal bruising Neurologic: weight loss sales consultant II-XII grossly normal, no motor/sensory deficits Objective Dasha Kidd D.O. Jul 02, 2019 11:52
--- NOTE | 2019-07-02 13:40 | NUR ---
NURSE NOTES: Patient arrived on unit. Stable. Breathing is even and unlabored. Denies pain or SOB. Patient oriented to room, call light, and unit. Patient instructed to use call light for assistance, verbalized understanding. Surgical dressing dry and intact, stained with blood. Bruising noted around surgical sites. Patient is in bed in locked and lowest position with call light within reach. All safety measures provided. Will continue to monitor.
--- NOTE | 2019-07-02 13:40 | NUR ---
HAND-OFF: Report given to Debby YOUNG. Pt transferred to [facility] with hospital bed. Pt remains stable.
[2019-07-02] MEDS ORDERED: Morphine Sulfate 4mg/ml Inj (IV USE ONLY) IVP PRN (14:00)
[2019-07-02] MEDS ORDERED: Albuterol/Ipratropium 3ml neb HHN PRN (14:00)
[2019-07-02] MEDS ORDERED: Miralax 17gm pkt ORAL PRN (14:15)
[2019-07-02] MEDS ORDERED: Warfarin Sodium 2.5mg ORAL ONE ×2 (17:00)
--- NOTE | 2019-07-02 17:16 | Infectious Diseases Prog Note ---
Assessment/Plan Assessment/Plan ASSESSMENT AND PLAN: 1. e.coli bacteremia, acute appendicitis, sepsis, leukocytosis, pelvic cystic mass - zosyn - consider oral augmentin soon x 1 week - s/p lap appendectomy and resection of cyst/mass - monitor labs - surveillance blood cultures negative 2. Atrial fibrillation. 3. Acute kidney injury. 4. Chronic renal failure. 5. Anemia. 6. BPH. 7. Hypertension. 8. Blood pressure treatment per primary care team and consultants. 9. Chronic kidney disease. 10. Altered mental status/encephalopathy. 11. Thrombocytopenia. 12. Lactic acidosis and sepsis. 13. Prediabetes. 14. History of meningioma. 15. Continue treatment per primary consultants. 16. No known drug allergies. 17. Social history is negative. 18. Family history is noncontributory. 19. Case was discussed with RN. Subjective Constitutional: Reports: fatigue; Denies: fever HEENT: Denies: congestion Respiratory: Denies: shortness of breath Cardiovascular: Denies: chest pain Gastrointestinal/Abdominal: Denies: nausea, vomiting, diarrhea Genitourinary: Reports: other - no harris Neurologic: Denies: headache Psychiatric: Denies: depression Skin: Denies: rash Hematologic: Denies: bleeding Musculoskeletal: Denies: pain Allergies: Coded Allergies: No Known Allergies (Unverified , 06/26/19) Objective Vital Signs Last 24 Hour Vital Signs Date Time Temp Pulse Resp B/P (MAP) Pulse Ox O2 Delivery O2 Flow Rate FiO2 07/02/19 16:00 97.3 73 21 137/91 (106) 97 07/02/19 13:30 98.1 79 18 135/78 (97) 98 07/02/19 12:00 98.4 73 18 163/76 (105) 98 07/02/19 09:01 145 77/70 07/02/19 09:00 Room Air 07/02/19 08:00 81 07/02/19 08:00 98.1 70 18 145/77 (99) 97 07/02/19 06:30 84 18 95 Room Air 21 07/02/19 06:30 95 Room Air 21 07/02/19 04:00 72 07/02/19 04:00 98.2 72 18 161/69 (99) 95 07/02/19 00:00 98.0 66 18 160/75 (103) 97 07/02/19 00:00 71 07/01/19 21:14 89 130/68 07/01/19 21:00 Room Air 07/01/19 20:24 95 Room Air 21 07/01/19 20:24 89 18 96 Room Air 21 07/01/19 20:00 75 07/01/19 20:00 98.2 73 19 157/79 (105) 98 Height (Feet): 5 Height (Inches): 5.00 Weight (Pounds): 138 General Appearance: no acute distress HEENT: normocephalic, atraumatic, anicteric, mucous membranes moist Respiratory/Chest: lungs clear, normal breath sounds, no respiratory distress, no accessory muscle use Cardiovascular: normal rate, regular rhythm, no gallop/murmur, no JVD Abdomen: normal bowel sounds, soft, non tender, no organomegaly, non distended Genitourinary: other - no harris Extremities: no cyanosis Skin: no rash Neurologic/Psychiatric: reprographics associate II-XII grossly normal, alert, oriented x 3, responsive Lymphatic: no neck adenopathy Musculoskeletal: no effusion Objective CT scan abdomen and pelvis: Impression: Findings consistent with acute appendicitis. There are questionably 2 small adjacent gas bubbles which are more likely artifactual than real but could indicate focal microperforation. However, there is no evidence of periappendiceal abscess. 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 Not definitely related to any adjacent organs. The possibility of unusual cystic neoplasm should also be considered. Adjacent 1.7 cm mesenteric root mass demonstrating nonspecific soft tissue attenuation. Likewise nonspecific, neoplasm not excludable Nonspecific prominent retroperitoneal nodes Borderline splenomegaly Atrophic left kidney Grade 1-2 spondylolisthesis of L4 on L5 without evidence of spondylolysis. There is associated secondary degenerative change Cardiomegaly Pericardial effusion Chest x-ray - Procedure: XRAY Chest 1v Indication: Chest pain Technique: One view of the chest Comparison: none Findings: Patient's heart is enlarged. Patient's hand obscures the left lung base. Atelectatic changes or scarring are seen in the bilateral perihilar regions. Granulomas calcifications are seen in the right midlung. No acute infiltrates, effusions, or congestion. Impression: Cardiomegaly No acute process Evidence of old granulomatous disease Microbiology Date/Time Source Procedure Growth Status 06/30/19 13:07 Peritoneal Fluid Anaerobic Culture - Preliminary NO GROWTH AFTER 48 HOURS Resulted 06/30/19 13:07 Peritoneal Fluid Gram Stain - Final Resulted 06/30/19 13:07 Peritoneal Fluid Body Fluid Culture - Preliminary NO GROWTH AFTER 48 HOURS Resulted Laboratory Tests Test 07/02/19 06:00 White Blood Count 4.4 K/UL (4.8-10.8) L Red Blood Count 3.44 M/UL (4.70-6.10) L Hemoglobin 11.9 G/DL (14.2-18.0) L Hematocrit 34.1 % (42.0-52.0) L Mean Corpuscular Volume 99 FL (80-99) Mean Corpuscular Hemoglobin 34.6 PG (27.0-31.0) H Mean Corpuscular Hemoglobin Concent 34.9 G/DL (32.0-36.0) Red Cell Distribution Width 12.2 % (11.6-14.8) Platelet Count 109 K/UL (150-450) L Mean Platelet Volume 7.4 FL (6.5-10.1) Neutrophils (%) (Auto) 70.4 % (45.0-75.0) Lymphocytes (%) (Auto) 19.4 % (20.0-45.0) L Monocytes (%) (Auto) 8.5 % (1.0-10.0) Eosinophils (%) (Auto) 1.3 % (0.0-3.0) Basophils (%) (Auto) 0.4 % (0.0-2.0) Prothrombin Time 15.9 SEC (9.30-11.50) H Prothromb Time International Ratio 1.5 (0.9-1.1) H Activated Partial Thromboplast Time 34 SEC (23-33) H Sodium Level 144 MMOL/L (136-145) Potassium Level 3.9 MMOL/L (3.5-5.1) Chloride Level 108 MMOL/L (98-107) H Carbon Dioxide Level 29 MMOL/L (21-32) Anion Gap 7 mmol/L (5-15) Blood Urea Nitrogen 16 mg/dL (7-18) Creatinine 1.3 MG/DL (0.55-1.30) Estimat Glomerular Filtration Rate 52.5 mL/min (>60) Glucose Level 112 MG/DL (74-106) H Calcium Level 8.6 MG/DL (8.5-10.1) Phosphorus Level 2.8 MG/DL (2.5-4.9) Magnesium Level 2.2 MG/DL (1.8-2.4) Total Bilirubin 0.5 MG/DL (0.2-1.0) Aspartate Amino Transf (AST/SGOT) 36 U/L (15-37) Alanine Aminotransferase (ALT/SGPT) 35 U/L (12-78) Alkaline Phosphatase 66 U/L (46-116) Total Protein 6.2 G/DL (6.4-8.2) L Albumin 2.6 G/DL (3.4-5.0) L Globulin 3.6 g/dL Albumin/Globulin Ratio 0.7 (1.0-2.7) L Current Medications Medications (Trade) Dose Ordered Sig/Chicho Route PRN Reason Start Time Stop Time Status Last Admin Dose Admin Acetaminophen (Tylenol) 650 mg Q4H PRN ORAL Mild Pain (Pain Scale 1-3) 07/02/19 13:45 07/28/19 13:44 Acetaminophen (Tylenol) 650 mg Q4H PRN ORAL fever 07/02/19 13:45 07/28/19 13:44 Albuterol/ Ipratropium (Albuterol/ Ipratropium) 3 ml Q4H PRN HHN Shortness of Breath 07/02/19 14:00 07/03/19 13:59 Carvedilol (Coreg) 6.25 mg EVERY 12 HOURS ORAL 07/02/19 21:00 07/28/19 20:59 Dextrose (Dextrose 50%) 25 ml Q30M PRN IV Hypoglycemia 07/02/19 14:00 07/27/19 00:00 Dextrose (Dextrose 50%) 50 ml Q30M PRN IV Hypoglycemia 07/02/19 14:00 07/27/19 00:00 Finasteride (Proscar) 5 mg DAILY ORAL 07/03/19 09:00 07/29/19 08:59 Morphine Sulfate (Morphine Sulfate) 4 mg Q4H PRN IVP pain score 7-10 07/02/19 14:00 07/07/19 13:59 Ondansetron HCl (Zofran) 4 mg Q6H PRN IVP Nausea & Vomiting 07/02/19 14:00 07/28/19 13:59 Piperacillin Sod/ Tazobactam Sod 3.375 gm/Sodium Chloride 110 ml @ 27.5 mls/hr EVERY 8 HOURS IVPB 07/02/19 14:00 07/07/19 13:59 07/02/19 14:14 Polyethylene Glycol (Miralax) 17 gm HSPRN PRN ORAL Constipation 07/02/19 14:15 07/28/19 14:14 Tamsulosin HCl (Flomax) 0.4 mg DAILY ORAL 07/03/19 09:00 07/29/19 08:59 Warfarin Sodium (Coumadin per pharmacy) 1 ea DAILY PRN MISC Per rx protocol 07/03/19 09:00 07/31/19 11:29 Sohail Leung MD Jul 02, 2019 17:16
--- NOTE | 2019-07-02 19:30 | NUR ---
HAND-OFF: Report given to Khalidao RN. Patient is stable.
--- NOTE | 2019-07-02 19:30 | NUR ---
NURSE NOTES: Receive a report from HANNAH Guardado. Round is done. Pt is sleep but easily aroused. No acute distress noted. Denies pain. Surgical sites are clean with steri-strips. Call light within reach. Will continue to monitor.
--- NOTE | 2019-07-02 22:00 | NUR ---
NURSE NOTES: Using urinal at bed side. Provide fall precautions. Re-educate to use call light for assist. Verbalizes understanding. On bed-alarm. Will continue to monitor.
[2019-07-03] VITALS: BP 162/86
[2019-07-03 04:00] VITALS: BP 124/77
[2019-07-03 05:33] LABS: BASOPHILS % (AUTO) 0.5 % (0.0-2.0); EOSINOPHILS % (AUTO) 3.8 % (0.0-3.0); HEMATOCRIT 35.6 % (42.0-52.0); HEMOGLOBIN 12.3 G/DL (14.2-18.0); LYMPHOCYTES % (AUTO) 22.8 % (20.0-45.0); MEAN CORPUSCULAR VOLUME 100 FL (80-99); MONOCYTES % (AUTO) 7.8 % (1.0-10.0); NEUTROPHILS % (AUTO) 65.1 % (45.0-75.0); PLATELET COUNT 122 K/UL (150-450); RED BLOOD COUNT 3.57 M/UL (4.70-6.10); RED CELL DISTRIBUTION WIDTH 12.3 % (11.6-14.8); WHITE BLOOD COUNT 4.3 K/UL (4.8-10.8)
[2019-07-03 05:35] LABS: INR 2.1 (0.9-1.1)
[2019-07-03] MEDS: Piperacillin/Tazobactam 3.375 GM in NS 110 ML IVPB SCH ×3 (05:55→21:57)
[2019-07-03 05:58] LABS: ALANINE AMINOTRANSFERASE 36 U/L (12-78); ALBUMIN 2.6 G/DL (3.4-5.0); ALBUMIN/GLOBULIN RATIO 0.7 (1.0-2.7); ALKALINE PHOSPHATASE 61 U/L (46-116); ANION GAP 5 mmol/L (5-15); ASPARTATE AMINO TRANSFERASE 36 U/L (15-37); BILIRUBIN,TOTAL 0.5 MG/DL (0.2-1.0); BLOOD UREA NITROGEN 15 mg/dL (7-18); CALCIUM 8.9 MG/DL (8.5-10.1); CARBON DIOXIDE 31 MMOL/L (21-32); CHLORIDE 108 MMOL/L (98-107); CREATININE 1.3 MG/DL (0.55-1.30); POTASSIUM 4.2 MMOL/L (3.5-5.1); SODIUM 144 MMOL/L (136-145)
--- NOTE | 2019-07-03 07:15 | NUR ---
HAND-OFF: Report given to HANNAH Guardado.
--- NOTE | 2019-07-03 07:30 | NUR ---
NURSE NOTES: Patient is in bed awake and able to verbalize needs. Stable. Denies pain or SOB. Surgical dressing dry and intact, stained. Clean linen and oral care supplies offered to patient. Patient has urinal at bedside. All needs met at this time. Patient is sitting up at the edge of the bed brushing his teeth. All safety measures provided, call light within reach. Will continue to monitor.
[2019-07-03 08:00] VITALS: BP 150/84
[2019-07-03] MEDS: Tamsulosin 0.4mg cap ORAL SCH (09:11)
[2019-07-03] MEDS: Carvedilol 6.25mg Tab ORAL SCH ×2 (09:11→20:17)
--- NOTE | 2019-07-03 10:50 | Hematology/Onc Progress Note ---
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 Not definitely related to any adjacent organs. The possibility of unusual cystic neoplasm should also be considered. Adjacent 1.7 cm mesenteric root mass demonstrating nonspecific soft tissue attenuation. Likewise nonspecific, neoplasm not excludable --> dw surgery, s/p lap choly/mass exicison--> PENDING RESULTS PATHOLOGY --> hold off anticoag until procedure is done --> hold off on lovenox sq, ok for coumadin # Thrombocytopenia - potential causes multifactorial, evaluate liver and viral etiologies to begin, in this case is related likely to cirrhosis v ascites that is a resultant of liver disease that is chronic. --> Hep panel and HIV ordered --> hiv neg --> US abd to evaluate for cirrhosis and hsm ordered --> reviewed --> Peripheral smear ordered to evaluate for blasts /schistocytes --> abx and other meds have been reviewed --> ok for ppx if plt >50k w/ either heparin or lovenox --> Transfuse if Plt < 20k and fever, or if Plt < 10k without fever --> plt 72--->70k-->109 -->122 --> continue anticoag if high risk CHASVasc2 # Anemia of chronic disease due to underlying chronic medical issues, multifactorial v Gi bleed --> Anemia workup has been ordered, rule out gi bleed --> No evidence of hemolysis is noted, peripheral smear has been reviewed. --> Hgb goal >7. Transfuse prn. --> Epogen or iron at this time is not indicated # Coagulopathy with elev inr/ptt --> as per above --> vitk if needs reversal --> chronic as with liver disease # Altered mental status with UTI (urinary tract infection) --> on abx as per id --> currently zosyn # Potential pituitary adenoma with sellar hyperdense lesion that could be further characterized with MRI --> per endo # Afib --> cardiology is following, appreciate recs # Dvt ppx hold coumadin Appreciate consultation and rosa elena Rn Subjective HEENT: Denies: no symptoms, eye pain, blurred vision, tearing, double vision, ear pain, ear discharge, nose pain, nose congestion, throat pain, throat swelling, mouth pain, mouth swelling, other Cardiovascular: Denies: no symptoms, chest pain, edema, irregular heart rate, lightheadedness, palpitations, syncope, other Respiratory: Denies: no symptoms, cough, shortness of breath, SOB with excertion, SOB at rest, sputum, wheezing, other Gastrointestinal/Abdominal: Denies: no symptoms, abdomen distended, abdominal pain, black stools, tarry stools, blood in stool, constipated, diarrhea, difficulty swallowing, nausea, poor appetite, poor fluid intake, rectal bleeding , vomiting, other Genitourinary: Denies: no symptoms, burning, discharge, frequency, flank pain, hematuria, incontinence, pain, urgency, other Neurologic/Psychiatric: Denies: no symptoms, anxiety, depressed, emotional problems, headache, numbness, paresthesia, pre-existing deficit, seizure, tingling, tremors, weakness, other Endocrine: Denies: no symptoms, excessive sweating, flushing, intolerance to cold, intolerance to heat, increased hunger, increased thirst, increased urine, unexplained weight gain, unexplained weight loss, other Hematologic/Lymphatic: Denies: no symptoms, anemia, easy bleeding, easy bruising, adenopathy, other Allergies: Coded Allergies: No Known Allergies (Unverified , 06/26/19) Subjective 06/30: no major changes, off lovenox for now, pending procedure, dr Dr. Wright 07/02: on tele, no acute events, room air, inr 1.5, coumadin 07/03: inr is higher, dw cards, no bleeding, plt remains sufficient, recovering from surgery Objective Objective Current Medications Medications (Trade) Dose Ordered Sig/Chicho Route PRN Reason Start Time Stop Time Status Last Admin Dose Admin Acetaminophen (Tylenol) 650 mg Q4H PRN ORAL Mild Pain (Pain Scale 1-3) 07/02/19 13:45 07/28/19 13:44 Acetaminophen (Tylenol) 650 mg Q4H PRN ORAL fever 07/02/19 13:45 07/28/19 13:44 Albuterol/ Ipratropium (Albuterol/ Ipratropium) 3 ml Q4H PRN HHN Shortness of Breath 07/02/19 14:00 07/03/19 13:59 Carvedilol (Coreg) 6.25 mg EVERY 12 HOURS ORAL 07/02/19 21:00 07/28/19 20:59 07/03/19 09:11 Dextrose (Dextrose 50%) 25 ml Q30M PRN IV Hypoglycemia 07/02/19 14:00 07/27/19 00:00 Dextrose (Dextrose 50%) 50 ml Q30M PRN IV Hypoglycemia 07/02/19 14:00 07/27/19 00:00 Finasteride (Proscar) 5 mg DAILY ORAL 07/03/19 09:00 07/29/19 08:59 07/03/19 09:11 Morphine Sulfate (Morphine Sulfate) 4 mg Q4H PRN IVP pain score 7-10 07/02/19 14:00 07/07/19 13:59 Ondansetron HCl (Zofran) 4 mg Q6H PRN IVP Nausea & Vomiting 07/02/19 14:00 07/28/19 13:59 Piperacillin Sod/ Tazobactam Sod 3.375 gm/Sodium Chloride 110 ml @ 27.5 mls/hr EVERY 8 HOURS IVPB 07/02/19 14:00 07/07/19 13:59 07/03/19 05:55 Polyethylene Glycol (Miralax) 17 gm HSPRN PRN ORAL Constipation 07/02/19 14:15 07/28/19 14:14 Tamsulosin HCl (Flomax) 0.4 mg DAILY ORAL 07/03/19 09:00 07/29/19 08:59 07/03/19 09:11 Warfarin Sodium (Coumadin per pharmacy) 1 ea DAILY PRN MISC Per rx protocol 07/03/19 09:00 07/31/19 11:29 Warfarin Sodium (Coumadin) 0.5 mg COUMADIN ONCE ORAL 07/03/19 17:00 07/03/19 17:01 Last 24 Hour Vital Signs Date Time Temp Pulse Resp B/P (MAP) Pulse Ox O2 Delivery O2 Flow Rate FiO2 07/03/19 09:11 82 150/84 07/03/19 04:00 97.9 73 18 124/77 (93) 98 07/03/19 00:00 97.4 70 18 162/86 (111) 97 07/02/19 21:00 Room Air 07/02/19 20:38 91 105/70 07/02/19 20:00 98.0 73 18 139/73 (95) 97 63 07/02/19 16:00 97.3 73 21 137/91 (106) 97 07/02/19 13:30 98.1 79 18 135/78 (97) 98 07/02/19 12:00 98.4 73 18 163/76 (105) 98 07/02/19 09:01 145 77/70 07/02/19 09:00 Room Air 07/02/19 08:00 81 07/02/19 08:00 98.1 70 18 145/77 (99) 97 07/02/19 06:30 84 18 95 Room Air 21 07/02/19 06:30 95 Room Air 21 07/02/19 04:00 72 07/02/19 04:00 98.2 72 18 161/69 (99) 95 07/02/19 00:00 98.0 66 18 160/75 (103) 97 07/02/19 00:00 71 07/01/19 21:14 89 130/68 07/01/19 21:00 Room Air 07/01/19 20:24 95 Room Air 21 07/01/19 20:24 89 18 96 Room Air 21 07/01/19 20:00 75 07/01/19 20:00 98.2 73 19 157/79 (105) 98 07/01/19 16:00 80 07/01/19 16:00 97.5 89 18 130/68 (88) 95 07/01/19 12:00 97.5 75 18 142/75 (97) 97 07/01/19 12:00 75 Intake and Output 07/02/19 07/03/19 19:00 07:00 Intake Total 100 ml Balance 100 ml Intake Oral 100 ml # Voids 5 Labs Test 07/01/19 06:00 07/02/19 06:00 07/03/19 04:45 White Blood Count 4.5 K/UL (4.8-10.8) 4.4 K/UL (4.8-10.8) 4.3 K/UL (4.8-10.8) Red Blood Count 3.51 M/UL (4.70-6.10) 3.44 M/UL (4.70-6.10) 3.57 M/UL (4.70-6.10) Hemoglobin 12.1 G/DL (14.2-18.0) 11.9 G/DL (14.2-18.0) 12.3 G/DL (14.2-18.0) Hematocrit 35.1 % (42.0-52.0) 34.1 % (42.0-52.0) 35.6 % (42.0-52.0) Mean Corpuscular Volume 100 FL (80-99) 99 FL (80-99) 100 FL (80-99) Mean Corpuscular Hemoglobin 34.5 PG (27.0-31.0) 34.6 PG (27.0-31.0) 34.3 PG (27.0-31.0) Mean Corpuscular Hemoglobin Concent 34.6 G/DL (32.0-36.0) 34.9 G/DL (32.0-36.0) 34.4 G/DL (32.0-36.0) Red Cell Distribution Width 12.0 % (11.6-14.8) 12.2 % (11.6-14.8) 12.3 % (11.6-14.8) Platelet Count 82 K/UL (150-450) 109 K/UL (150-450) 122 K/UL (150-450) Mean Platelet Volume 7.6 FL (6.5-10.1) 7.4 FL (6.5-10.1) 6.3 FL (6.5-10.1) Neutrophils (%) (Auto) % (45.0-75.0) 70.4 % (45.0-75.0) 65.1 % (45.0-75.0) Lymphocytes (%) (Auto) % (20.0-45.0) 19.4 % (20.0-45.0) 22.8 % (20.0-45.0) Monocytes (%) (Auto) % (1.0-10.0) 8.5 % (1.0-10.0) 7.8 % (1.0-10.0) Eosinophils (%) (Auto) % (0.0-3.0) 1.3 % (0.0-3.0) 3.8 % (0.0-3.0) Basophils (%) (Auto) % (0.0-2.0) 0.4 % (0.0-2.0) 0.5 % (0.0-2.0) Differential Total Cells Counted 100 Neutrophils % (Manual) 77 % (45-75) Lymphocytes % (Manual) 14 % (20-45) Monocytes % (Manual) 9 % (1-10) Eosinophils % (Manual) 0 % (0-3) Basophils % (Manual) 0 % (0-2) Band Neutrophils 0 % (0-8) Platelet Estimate Decreased Platelet Morphology Normal Red Blood Cell Morphology Normal Sodium Level 142 MMOL/L (136-145) 144 MMOL/L (136-145) 144 MMOL/L (136-145) Potassium Level 4.1 MMOL/L (3.5-5.1) 3.9 MMOL/L (3.5-5.1) 4.2 MMOL/L (3.5-5.1) Chloride Level 108 MMOL/L (98-107) 108 MMOL/L (98-107) 108 MMOL/L (98-107) Carbon Dioxide Level 28 MMOL/L (21-32) 29 MMOL/L (21-32) 31 MMOL/L (21-32) Anion Gap 7 mmol/L (5-15) 7 mmol/L (5-15) 5 mmol/L (5-15) Blood Urea Nitrogen 18 mg/dL (7-18) 16 mg/dL (7-18) 15 mg/dL (7-18) Creatinine 1.2 MG/DL (0.55-1.30) 1.3 MG/DL (0.55-1.30) 1.3 MG/DL (0.55-1.30) Estimat Glomerular Filtration Rate 57.5 mL/min (>60) 52.5 mL/min (>60) 52.5 mL/min (>60) Glucose Level 99 MG/DL (74-106) 112 MG/DL (74-106) 120 MG/DL (74-106) Calcium Level 8.4 MG/DL (8.5-10.1) 8.6 MG/DL (8.5-10.1) 8.9 MG/DL (8.5-10.1) Prothrombin Time 15.9 SEC (9.30-11.50) 21.2 SEC (9.30-11.50) Prothromb Time International Ratio 1.5 (0.9-1.1) 2.1 (0.9-1.1) Activated Partial Thromboplast Time 34 SEC (23-33) Phosphorus Level 2.8 MG/DL (2.5-4.9) Magnesium Level 2.2 MG/DL (1.8-2.4) Total Bilirubin 0.5 MG/DL (0.2-1.0) 0.5 MG/DL (0.2-1.0) Aspartate Amino Transf (AST/SGOT) 36 U/L (15-37) 36 U/L (15-37) Alanine Aminotransferase (ALT/SGPT) 35 U/L (12-78) 36 U/L (12-78) Alkaline Phosphatase 66 U/L (46-116) 61 U/L (46-116) Total Protein 6.2 G/DL (6.4-8.2) 6.3 G/DL (6.4-8.2) Albumin 2.6 G/DL (3.4-5.0) 2.6 G/DL (3.4-5.0) Globulin 3.6 g/dL 3.7 g/dL Albumin/Globulin Ratio 0.7 (1.0-2.7) 0.7 (1.0-2.7) Height (Feet): 5 Height (Inches): 5.00 Weight (Pounds): 138 Objective Physical Exam: Vitals: reviewed General: NAD Neck: supple Chest: clear breath sounds bilaterally Cardiovascular: RRR, no s3, s4 Abdomen: soft, nontender, nd Extremities: no cce, normal range of motion Mental: alert Blaine Weathers MD Jul 03, 2019 10:50
[2019-07-03 12:00] VITALS: BP 102/69
--- NOTE | 2019-07-03 13:33 | NUR ---
NURSE NOTES: Spoke to regarding patient and new order received. Order read back and carried out.
--- NOTE | 2019-07-03 14:07 | NUR ---
RD ASSESSMENT & RECOMMENDATIONS SEE CARE ACTIVITY FOR COMPLETE ASSESSMENT DAILY ESTIMATED NEEDS: Needs based on Cardiac, pulmonary 68.6kg 25-30 kcals/kg 1397-4567 total kcals 1-1.5 g protein/kg 69-103 g total protein 20-25 mL/kg 5212-2348 total fluid mLs NUTRITION DIAGNOSIS: Altered nutrition related lab values r/t clinical status as evidenced by A1C 6.1, elev BUN (29) and creat (1.4), w/ elev BNP (5562). CURRENT DIET: Cardiac ms finely chopped PO DIET RECOMMENDATIONS: LOW NA DIET ADDITIONAL RECOMMENDATIONS: 1) Rec NISS prn, monitor BG at mealtimes. 2) Obtain an accurate standing weight as able OR calibrated bed scale wt 3) APPLICATION SUPPORT LEAD eval for appropriate texture, improved po intake 4) Add snacks in b/w meals w/ variable po inake -> glucerna 1 tetra daily
--- NOTE | 2019-07-03 14:36 | Cardiac Electrophysiology PN ---
Assessment/Plan Assessment/Plan 1. 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 EF 55% 2. HTN. On Coreg 6.25 bid 3. Atrial fib with RVR. Continue Coreg 6.25 bid and coumadin . 4. Gram-negative bacteremia, could be from appendicitis. S/P appendectomy by Dr. Mo 06/30/19 The patient is on Abx per Dr. Leung. Echocardiogram didn't show any vegetations on the valves 5. COPD, on albuterol. 6. Thrombocytopenia [address] Guidry DW RN OK to DC Subjective Subjective Transferred to NMB.. No CP or SOB. S/P appendectomy 06/30/19. No events Objective Last 24 Hour Vital Signs Date Time Temp Pulse Resp B/P (MAP) Pulse Ox O2 Delivery O2 Flow Rate FiO2 07/03/19 12:00 97.9 78 20 102/69 (80) 98 07/03/19 09:11 82 150/84 07/03/19 09:00 Room Air 07/03/19 08:00 98.1 82 18 150/84 (106) 97 07/03/19 04:00 97.9 73 18 124/77 (93) 98 07/03/19 00:00 97.4 70 18 162/86 (111) 97 07/02/19 21:00 Room Air 07/02/19 20:38 91 105/70 07/02/19 20:00 98.0 73 18 139/73 (95) 97 63 07/02/19 16:00 97.3 73 21 137/91 (106) 97 Intake and Output 07/02/19 07/03/19 19:00 07:00 Intake Total 100 ml Balance 100 ml Intake Oral 100 ml # Voids 5 Laboratory Tests Test 07/03/19 04:45 White Blood Count 4.3 K/UL (4.8-10.8) L Red Blood Count 3.57 M/UL (4.70-6.10) L Hemoglobin 12.3 G/DL (14.2-18.0) L Hematocrit 35.6 % (42.0-52.0) L Mean Corpuscular Volume 100 FL (80-99) H Mean Corpuscular Hemoglobin 34.3 PG (27.0-31.0) H Mean Corpuscular Hemoglobin Concent 34.4 G/DL (32.0-36.0) Red Cell Distribution Width 12.3 % (11.6-14.8) Platelet Count 122 K/UL (150-450) L Mean Platelet Volume 6.3 FL (6.5-10.1) L Neutrophils (%) (Auto) 65.1 % (45.0-75.0) Lymphocytes (%) (Auto) 22.8 % (20.0-45.0) Monocytes (%) (Auto) 7.8 % (1.0-10.0) Eosinophils (%) (Auto) 3.8 % (0.0-3.0) H Basophils (%) (Auto) 0.5 % (0.0-2.0) Prothrombin Time 21.2 SEC (9.30-11.50) H Prothromb Time International Ratio 2.1 (0.9-1.1) H Sodium Level 144 MMOL/L (136-145) Potassium Level 4.2 MMOL/L (3.5-5.1) Chloride Level 108 MMOL/L (98-107) H Carbon Dioxide Level 31 MMOL/L (21-32) Anion Gap 5 mmol/L (5-15) Blood Urea Nitrogen 15 mg/dL (7-18) Creatinine 1.3 MG/DL (0.55-1.30) Estimat Glomerular Filtration Rate 52.5 mL/min (>60) Glucose Level 120 MG/DL (74-106) H Calcium Level 8.9 MG/DL (8.5-10.1) Total Bilirubin 0.5 MG/DL (0.2-1.0) Aspartate Amino Transf (AST/SGOT) 36 U/L (15-37) Alanine Aminotransferase (ALT/SGPT) 36 U/L (12-78) Alkaline Phosphatase 61 U/L (46-116) Total Protein 6.3 G/DL (6.4-8.2) L Albumin 2.6 G/DL (3.4-5.0) L Globulin 3.7 g/dL Albumin/Globulin Ratio 0.7 (1.0-2.7) L Objective HEAD AND NECK:No JVD. LUNGS: Clear. CARDIOVASCULAR: Irregular S1 and S2 with no gallop or murmur. ABDOMEN: Soft and nontender.S/P Lap Apy. EXTREMITIES: No pitting edema. ToluiePro MD Jul 03, 2019 14:36
[2019-07-03 16:00] VITALS: BP 141/79
--- NOTE | 2019-07-03 16:15 | NUR ---
CASE MANAGEMENT:REVIEW 07/01/2019 SI;E COLI BACTEREMIA. AFIB W/RVR. S/P LAP APPENDECTOMY DAY #1. .7 89 19 157/79 95% ON RA CL 108 CA 8.4 IS;ZOFRAN IV Q6 HRS PRN DUO NEB HHN Q4 HRS PRN ZOSYN IV Q8 HRS COREG PO Q12 HRS IVF NS @ 100 M L/HR TELE STATUS DCP;FROM HOME CASE MANAGEMENT:REVIEW 07/02/2019 SI;E COLI BACTEREMIA. AFIB W/RVR. S/P LAP APPENDECTOMY DAY #2. 98.4 145 18 77/70 95% ON RA IS;ZOFRAN IV Q6 HRS PRN DUO NEB HHN Q4 HRS PRN ZOSYN IV Q8 HRS COREG PO Q12 HRS IVF NS @ 100 M L/HR TRANSFERRED TO MED SURG MED SURG STATUS DCP;FROM HOME CASE MANAGEMENT:REVIEW SI;E COLI BACTEREMIA. AFIB W/RVR. S/P LAP APPENDECTOMY DAY #3. 98.1 82 20 162/86 97% ON RA IS;ZOFRAN IV Q6 HRS PRN DUO NEB HHN Q4 HRS PRN ZOSYN IV Q8 HRS COREG PO Q12 HRS COUMADIN PO ONCE MED SURG STATUS DCP;HOME WITH HOME HEALTH
[2019-07-03] MEDS ORDERED: Warfarin Sodium 1mg ORAL ONE (17:00)
--- NOTE | 2019-07-03 17:11 | General Progress Note ---
Assessment/Plan Status: stable Assessment/Plan: 83 year old male presented with altered mental status. #Acute Appendicitis s/p emergent Lap Appendectomy, POD#3, initial concern for cystic mass, no concern for malignancy per Surgery #Severe Sepsis 2/2 Beck Sensitive Ecoli Bacteremia 2/2 Above w/ associated Lactic Acidosis #Severe sepsis #Gram-negative bacteremia, E. Coli, beck sensitive , from UTI or biliary #Acute metabolic encephalopathy- resolved # Lactic acidosis-resolved telemetry IV Zosyn per ID, Continue IV AB w/ Zosyn, anticipate patient will require extended course. Augmentin for 10 more days on discharge. D/w ID CT abdomen pelvis- acute appendicitis, mesenteric mass, as above. Dr. Wright consulted. 2D echo no evidence of vegetations Can wait to follow-up pathology results as an outpatient for surgery Cleared for discharge per surgery Cleared for discharge per infectious disease May need H/H on D/c. Will discuss with CM and patient #Atrial fibrillation Telemetry Atrial fib with RVR continue coreg 6.25 bid Restarted Coumadin. Now therapeutic. Will need to confirm with pharmacy what dose to discharge cardiology consult Monitor for 1 more day given episode of A. fib with RVR yesterday #GIANLUCA (acute kidney injury) #CKD (chronic kidney disease) Monitor renal function avoid nephrotoxic medications stable #Thrombocytopenia continue Coumadin for afib, given high [facility] hematology consult #HTN (hypertension) #Possible CHF Coreg. 2D echocardiogram, EF 55% Elevated BNP of more than 5000, possible congestive heart failure. #COPD on albuterol #Pre-diabetes monitor glucose on chemistry #Meningioma incidental. outpatient follow up I spent 38 minutes on this encounter. Greater than 50% spend on counselling and care coordination time of note may not reflect time of encounter Subjective Gastrointestinal/Abdominal: Reports: no symptoms Allergies: Coded Allergies: No Known Allergies (Unverified , 06/26/19) Subjective No acute events overnight per nursing. Patient with episode of heart rate to 145 and blood pressure in the 70s. Has not occurred since. Denies any syncope or near syncope. Otherwise has been stable. Review of systems: Constitutional: Denies: chills, diaphoresis, fever, malaise, weakness, other HEENT: Denies: eye pain, blurred vision, tearing, double vision, ear pain, ear discharge, nose pain, nose congestion, throat pain, throat swelling, mouth pain , mouth swelling, Cardiovascular: Denies: chest pain, edema, lightheadedness, palpitations, syncope, Respiratory: Denies: cough, orthopnea, shortness of breath, SOB with excertion , SOB at rest, sputum, stridor, wheezing, other Gastrointestinal/Abdominal: Denies: abdomen distended, abdominal pain, black stools, tarry stools, blood in stool, constipated, diarrhea, difficulty swallowing, nausea, poor appetite, poor fluid intake, rectal bleeding, vomiting , other Genitourinary: Denies: burning, discharge, frequency, flank pain, hematuria, incontinence, pain, urgency, other Neurologic/Psychiatric: Denies: anxiety, depressed, emotional problems, headache, numbness, paresthesia, pre-existing deficit, seizure, tingling, tremors, weakness, other Endocrine: Denies: excessive sweating, flushing, intolerance to cold, intolerance to heat, increased hunger, increased thirst, increased urine, unexplained weight gain, unexplained weight loss, other Hematologic/Lymphatic: Denies: anemia, easy bleeding, easy bruising, other Objective Last 24 Hour Vital Signs Date Time Temp Pulse Resp B/P (MAP) Pulse Ox O2 Delivery O2 Flow Rate FiO2 07/03/19 16:00 97.4 74 20 141/79 (99) 97 07/03/19 12:00 97.9 78 20 102/69 (80) 98 07/03/19 09:11 82 150/84 07/03/19 09:00 Room Air 07/03/19 08:00 98.1 82 18 150/84 (106) 97 07/03/19 04:00 97.9 73 18 124/77 (93) 98 07/03/19 00:00 97.4 70 18 162/86 (111) 97 07/02/19 21:00 Room Air 07/02/19 20:38 91 105/70 07/02/19 20:00 98.0 73 18 139/73 (95) 97 63 Intake and Output 07/02/19 07/03/19 19:00 07:00 Intake Total 100 ml Balance 100 ml Intake Oral 100 ml # Voids 5 Laboratory Tests 07/03/19 04:45: White Blood Count 4.3L, Red Blood Count 3.57L, Hemoglobin 12.3L, Hematocrit 35.6L, Mean Corpuscular Volume 100H, Mean Corpuscular Hemoglobin 34.3H, Mean Corpuscular Hemoglobin Concent 34.4, Red Cell Distribution Width 12.3, Platelet Count 122L, Mean Platelet Volume 6.3L, Neutrophils (%) (Auto) 65.1, Lymphocytes (%) (Auto) 22.8, Monocytes (%) (Auto) 7.8, Eosinophils (%) (Auto) 3.8H, Basophils (%) (Auto) 0.5, Prothrombin Time 21.2H, Prothromb Time International Ratio 2.1H, Sodium Level 144, Potassium Level 4.2, Chloride Level 108H, Carbon Dioxide Level 31, Anion Gap 5, Blood Urea Nitrogen 15, Creatinine 1.3, Estimat Glomerular Filtration Rate 52.5, Glucose Level 120H, Calcium Level 8.9, Total Bilirubin 0.5, Aspartate Amino Transf (AST/SGOT) 36, Alanine Aminotransferase ( ALT/SGPT) 36, Alkaline Phosphatase 61, Total Protein 6.3L, Albumin 2.6L, Globulin 3.7, Albumin/Globulin Ratio 0.7L Height (Feet): 5 Height (Inches): 5.00 Weight (Pounds): 138 Objective General: WDWN male in NAD, A&O x 4 HEENT: Normocephalic cephalic atraumatic, pupils equal round reactive to light and accommodation, nares patent and no symmetrical, no tonsillar exudates, mucous membranes moist CV: Regular rate regular rhythm, no murmurs, rubs, or gallops Pulm: Lungs clear to auscultation bilaterally. No wheezes, rhonchi, or rales GI: Soft, nontender, nondistended, bowel sounds present Neuro: CN 2-12 intact bilaterally, no focal signs. Ext: No lower extremity edema bilaterally Skin: no rashes lesions or ulcers Msk: Joints symmetrical in upper extremity and lower extremity bilaterally, no joint swelling. Lymph: No lymphadenopathy in upper extremity and lower extremity Víctor Lopez D.O. Jul 03, 2019 17:11
--- NOTE | 2019-07-03 19:30 | NUR ---
HAND-OFF: Report given to hKalidao RN. Patient is stable.
--- NOTE | 2019-07-03 19:30 | NUR ---
NURSE NOTES: Receive a report from HANNAH Guardado. Round is done. Pt is asleep but easily aroused. No acute distress noted. Denies pain. Surgical sites are clean. IV site on left hand is intact without infiltration. Using urinal at bed side. Provide fall precautions. Call light within reach. Will continue to monitor.
[2019-07-03 20:00] VITALS: BP 110/62
[2019-07-04] VITALS (7 sets, daily range): BP systolic 99–149; BP diastolic 67–83
--- NOTE | 2019-07-04 05:00 | NUR ---
NURSE NOTES: No acute distress noted. IV site got removed while moving. Restarted IV on left upper arm. Will continue to monitor.
[2019-07-04 05:25] LABS: INR 1.9 (0.9-1.1)
[2019-07-04] MEDS: Piperacillin/Tazobactam 3.375 GM in NS 110 ML IVPB SCH ×3 (05:59→21:53)
--- NOTE | 2019-07-04 06:26 | Hematology/Onc Progress Note ---
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 Not definitely related to any adjacent organs. The possibility of unusual cystic neoplasm should also be considered. Adjacent 1.7 cm mesenteric root mass demonstrating nonspecific soft tissue attenuation. Likewise nonspecific, neoplasm not excludable --> dw surgery, s/p lap choly/mass exicison--> PENDING RESULTS PATHOLOGY --> hold off anticoag until procedure is done --> hold off on lovenox sq, ok for coumadin # Thrombocytopenia - potential causes multifactorial, evaluate liver and viral etiologies to begin, in this case is related likely to cirrhosis v ascites that is a resultant of liver disease that is chronic. --> Hep panel and HIV ordered --> hiv neg --> US abd to evaluate for cirrhosis and hsm ordered --> reviewed --> Peripheral smear ordered to evaluate for blasts /schistocytes --> abx and other meds have been reviewed --> ok for ppx if plt >50k w/ either heparin or lovenox --> Transfuse if Plt < 20k and fever, or if Plt < 10k without fever --> plt 72--->70k-->109 -->122 --> continue anticoag if high risk CHASVasc2 # Anemia of chronic disease due to underlying chronic medical issues, multifactorial v Gi bleed --> Anemia workup has been ordered, rule out gi bleed --> No evidence of hemolysis is noted, peripheral smear has been reviewed. --> Hgb goal >7. Transfuse prn. --> Epogen or iron at this time is not indicated # Coagulopathy with elev inr/ptt --> as per above --> vitk if needs reversal --> chronic as with liver disease # Altered mental status with UTI (urinary tract infection) --> on abx as per id --> currently zosyn # Potential pituitary adenoma with sellar hyperdense lesion that could be further characterized with MRI --> per endo # Afib --> cardiology is following, appreciate recs # Dvt ppx hold coumadin Appreciate consultation and rosa elena Rn Subjective HEENT: Denies: no symptoms, eye pain, blurred vision, tearing, double vision, ear pain, ear discharge, nose pain, nose congestion, throat pain, throat swelling, mouth pain, mouth swelling, other Cardiovascular: Denies: no symptoms, chest pain, edema, irregular heart rate, lightheadedness, palpitations, syncope, other Respiratory: Denies: no symptoms, cough, shortness of breath, SOB with excertion, SOB at rest, sputum, wheezing, other Gastrointestinal/Abdominal: Denies: no symptoms, abdomen distended, abdominal pain, black stools, tarry stools, blood in stool, constipated, diarrhea, difficulty swallowing, nausea, poor appetite, poor fluid intake, rectal bleeding , vomiting, other Genitourinary: Denies: no symptoms, burning, discharge, frequency, flank pain, hematuria, incontinence, pain, urgency, other Neurologic/Psychiatric: Denies: no symptoms, anxiety, depressed, emotional problems, headache, numbness, paresthesia, pre-existing deficit, seizure, tingling, tremors, weakness, other Endocrine: Denies: no symptoms, excessive sweating, flushing, intolerance to cold, intolerance to heat, increased hunger, increased thirst, increased urine, unexplained weight gain, unexplained weight loss, other Allergies: Coded Allergies: No Known Allergies (Unverified , 06/26/19) Subjective 06/30: no major changes, off lovenox for now, pending procedure, dr Dr. Wright 07/02: on tele, no acute events, room air, inr 1.5, coumadin 07/03: inr is higher, dw cards, no bleeding, plt remains sufficient, recovering from surgery 07/04: for augmentin when discharged, currently is on coumadin po, inr 1.9 Objective Objective Current Medications Medications (Trade) Dose Ordered Sig/Chicho Route PRN Reason Start Time Stop Time Status Last Admin Dose Admin Acetaminophen (Tylenol) 650 mg Q4H PRN ORAL Mild Pain (Pain Scale 1-3) 07/02/19 13:45 07/28/19 13:44 Acetaminophen (Tylenol) 650 mg Q4H PRN ORAL fever 07/02/19 13:45 07/28/19 13:44 Carvedilol (Coreg) 6.25 mg EVERY 12 HOURS ORAL 07/02/19 21:00 07/28/19 20:59 07/03/19 20:17 Dextrose (Dextrose 50%) 25 ml Q30M PRN IV Hypoglycemia 07/02/19 14:00 07/27/19 00:00 Dextrose (Dextrose 50%) 50 ml Q30M PRN IV Hypoglycemia 07/02/19 14:00 07/27/19 00:00 Finasteride (Proscar) 5 mg DAILY ORAL 07/03/19 09:00 07/29/19 08:59 07/03/19 09:11 Morphine Sulfate (Morphine Sulfate) 4 mg Q4H PRN IVP pain score 7-10 07/02/19 14:00 07/07/19 13:59 Ondansetron HCl (Zofran) 4 mg Q6H PRN IVP Nausea & Vomiting 07/02/19 14:00 07/28/19 13:59 Piperacillin Sod/ Tazobactam Sod 3.375 gm/Sodium Chloride 110 ml @ 27.5 mls/hr EVERY 8 HOURS IVPB 07/02/19 14:00 07/07/19 13:59 07/04/19 05:59 Polyethylene Glycol (Miralax) 17 gm HSPRN PRN ORAL Constipation 07/02/19 14:15 07/28/19 14:14 Tamsulosin HCl (Flomax) 0.4 mg DAILY ORAL 07/03/19 09:00 07/29/19 08:59 07/03/19 09:11 Warfarin Sodium (Coumadin per pharmacy) 1 ea DAILY PRN MISC Per rx protocol 07/03/19 09:00 07/31/19 11:29 Last 24 Hour Vital Signs Date Time Temp Pulse Resp B/P (MAP) Pulse Ox O2 Delivery O2 Flow Rate FiO2 07/04/19 04:00 98.0 93 17 126/67 (86) 93 07/04/19 00:00 98.4 94 17 118/74 (89) 97 07/03/19 21:00 94 Room Air 21 07/03/19 21:00 Room Air 07/03/19 20:17 75 110/62 07/03/19 20:00 98.5 75 15 110/62 (78) 96 07/03/19 16:00 97.4 74 20 141/79 (99) 97 07/03/19 12:00 97.9 78 20 102/69 (80) 98 07/03/19 09:11 82 150/84 07/03/19 09:00 Room Air 07/03/19 08:00 98.1 82 18 150/84 (106) 97 07/03/19 04:00 97.9 73 18 124/77 (93) 98 07/03/19 00:00 97.4 70 18 162/86 (111) 97 07/02/19 21:00 Room Air 07/02/19 20:38 91 105/70 07/02/19 20:00 98.0 73 18 139/73 (95) 97 63 07/02/19 16:00 97.3 73 21 137/91 (106) 97 07/02/19 13:30 98.1 79 18 135/78 (97) 98 07/02/19 12:00 98.4 73 18 163/76 (105) 98 07/02/19 09:01 145 77/70 07/02/19 09:00 Room Air 07/02/19 08:00 81 07/02/19 08:00 98.1 70 18 145/77 (99) 97 07/02/19 06:30 84 18 95 Room Air 21 07/02/19 06:30 95 Room Air 21 Intake and Output 07/03/19 07/04/19 19:00 07:00 Intake Total 400 ml Output Total 500 ml Balance 400 ml -500 ml Intake Oral 400 ml Output Urine Total 500 ml # Voids 4 3 Labs Test 07/02/19 06:00 07/03/19 04:45 07/04/19 04:40 White Blood Count 4.4 K/UL (4.8-10.8) 4.3 K/UL (4.8-10.8) Red Blood Count 3.44 M/UL (4.70-6.10) 3.57 M/UL (4.70-6.10) Hemoglobin 11.9 G/DL (14.2-18.0) 12.3 G/DL (14.2-18.0) Hematocrit 34.1 % (42.0-52.0) 35.6 % (42.0-52.0) Mean Corpuscular Volume 99 FL (80-99) 100 FL (80-99) Mean Corpuscular Hemoglobin 34.6 PG (27.0-31.0) 34.3 PG (27.0-31.0) Mean Corpuscular Hemoglobin Concent 34.9 G/DL (32.0-36.0) 34.4 G/DL (32.0-36.0) Red Cell Distribution Width 12.2 % (11.6-14.8) 12.3 % (11.6-14.8) Platelet Count 109 K/UL (150-450) 122 K/UL (150-450) Mean Platelet Volume 7.4 FL (6.5-10.1) 6.3 FL (6.5-10.1) Neutrophils (%) (Auto) 70.4 % (45.0-75.0) 65.1 % (45.0-75.0) Lymphocytes (%) (Auto) 19.4 % (20.0-45.0) 22.8 % (20.0-45.0) Monocytes (%) (Auto) 8.5 % (1.0-10.0) 7.8 % (1.0-10.0) Eosinophils (%) (Auto) 1.3 % (0.0-3.0) 3.8 % (0.0-3.0) Basophils (%) (Auto) 0.4 % (0.0-2.0) 0.5 % (0.0-2.0) Prothrombin Time 15.9 SEC (9.30-11.50) 21.2 SEC (9.30-11.50) 19.4 SEC (9.30-11.50) Prothromb Time International Ratio 1.5 (0.9-1.1) 2.1 (0.9-1.1) 1.9 (0.9-1.1) Activated Partial Thromboplast Time 34 SEC (23-33) Sodium Level 144 MMOL/L (136-145) 144 MMOL/L (136-145) Potassium Level 3.9 MMOL/L (3.5-5.1) 4.2 MMOL/L (3.5-5.1) Chloride Level 108 MMOL/L (98-107) 108 MMOL/L (98-107) Carbon Dioxide Level 29 MMOL/L (21-32) 31 MMOL/L (21-32) Anion Gap 7 mmol/L (5-15) 5 mmol/L (5-15) Blood Urea Nitrogen 16 mg/dL (7-18) 15 mg/dL (7-18) Creatinine 1.3 MG/DL (0.55-1.30) 1.3 MG/DL (0.55-1.30) Estimat Glomerular Filtration Rate 52.5 mL/min (>60) 52.5 mL/min (>60) Glucose Level 112 MG/DL (74-106) 120 MG/DL (74-106) Calcium Level 8.6 MG/DL (8.5-10.1) 8.9 MG/DL (8.5-10.1) Phosphorus Level 2.8 MG/DL (2.5-4.9) Magnesium Level 2.2 MG/DL (1.8-2.4) Total Bilirubin 0.5 MG/DL (0.2-1.0) 0.5 MG/DL (0.2-1.0) Aspartate Amino Transf (AST/SGOT) 36 U/L (15-37) 36 U/L (15-37) Alanine Aminotransferase (ALT/SGPT) 35 U/L (12-78) 36 U/L (12-78) Alkaline Phosphatase 66 U/L (46-116) 61 U/L (46-116) Total Protein 6.2 G/DL (6.4-8.2) 6.3 G/DL (6.4-8.2) Albumin 2.6 G/DL (3.4-5.0) 2.6 G/DL (3.4-5.0) Globulin 3.6 g/dL 3.7 g/dL Albumin/Globulin Ratio 0.7 (1.0-2.7) 0.7 (1.0-2.7) Height (Feet): 5 Height (Inches): 5.00 Weight (Pounds): 138 Objective Physical Exam: Vitals: reviewed General: NAD Neck: supple Chest: clear breath sounds bilaterally Cardiovascular: RRR, no s3, s4 Abdomen: soft, nontender, nd Extremities: no cce, normal range of motion Mental: alert Blaine Weathers MD Jul 04, 2019 06:26
--- NOTE | 2019-07-04 07:30 | NUR ---
HAND-OFF: Report given to HANNAH Cassidy.
[2019-07-04] MEDS: Carvedilol 6.25mg Tab ORAL SCH (09:00)
[2019-07-04] MEDS: Tamsulosin 0.4mg cap ORAL SCH (09:15)
--- NOTE | 2019-07-04 10:48 | Cardiac Electrophysiology PN ---
Assessment/Plan Assessment/Plan 1. 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 EF 55% 2. HTN. On Coreg 6.25 bid 3. Atrial fib with RVR. Continue Coreg 6.25 bid and Coumadin . 4. Gram-negative bacteremia, could be from appendicitis. S/P appendectomy by Dr. Mo 06/30/19 The patient is on Abx per Dr. Leung. Echocardiogram didn't show any vegetations on the valves 5. COPD, on albuterol. 6. Thrombocytopenia [address] Guidry DW RN Subjective Subjective On NMB. No CP or SOB. S/P appendectomy 06/30/19. DC today pending Objective Last 24 Hour Vital Signs Date Time Temp Pulse Resp B/P (MAP) Pulse Ox O2 Delivery O2 Flow Rate FiO2 07/04/19 09:00 61 99/71 07/04/19 08:02 97.0 61 18 99/71 (80) 93 07/04/19 04:00 98.0 93 17 126/67 (86) 93 07/04/19 00:00 98.4 94 17 118/74 (89) 97 07/03/19 21:00 94 Room Air 21 07/03/19 21:00 Room Air 07/03/19 20:17 75 110/62 07/03/19 20:00 98.5 75 15 110/62 (78) 96 07/03/19 16:00 97.4 74 20 141/79 (99) 97 07/03/19 12:00 97.9 78 20 102/69 (80) 98 Intake and Output 07/03/19 07/04/19 19:00 07:00 Intake Total 400 ml Output Total 500 ml Balance 400 ml -500 ml Intake Oral 400 ml Output Urine Total 500 ml # Voids 4 3 Laboratory Tests Test 07/04/19 04:40 Prothrombin Time 19.4 SEC (9.30-11.50) H Prothromb Time International Ratio 1.9 (0.9-1.1) H Objective HEAD AND NECK:No JVD. LUNGS: Clear. CARDIOVASCULAR: Irregular S1 and S2 with no gallop or murmur. ABDOMEN: Soft and nontender.S/P Lap Apy. EXTREMITIES: No pitting edema. Pro Scherer MD Jul 04, 2019 10:48
[2019-07-04] MEDS ORDERED: WARFARIN SODIUM1 MG ORAL (10:57)
--- NOTE | 2019-07-04 11:00 | Discharge Instructions ---
Discharge Instructions Discharge Instructions Follow up with: Your PCP within one week. Follow up with Dr. Love in 1- 2 weeks. Diet: other - avoid leafy green vegetables Resume Normal Activity?: Yes Activity: resume normal activities Follow Up Orders Follow up with PCP within one week Follow up with Coumadin clinic in one week Follow up with Infectious disease Dr. Love in 1-2 weeks Follow up with Dr. Wright (surgery, within one week) For Surgical Patients Dressing Care: keep dry and clean Víctor Lopez D.O. Jul 04, 2019 11:00
--- NOTE | 2019-07-04 11:00 | NUR ---
PT WEEKLY PROGRESS NOTE Patient being seen by PT for therapeutic exercise, mobility training and gait training. Patient supervised/SBA for bed mobility and transfers. Patient able to ambulate 300 ft with SBA without assistive device, slightly unsteady during ambulation however no loss of balance. Performed gait training also with use of FWW however patient states that he does not like using it. Patient will benefit from continued skilled inpatient PT intervention to increase level of independence for functional mobility and to assess for need for AD.
[2019-07-04] MEDS ORDERED: AUGMENTIN 875-1 EAC1 ORAL (13:04)
[2019-07-04] MEDS ORDERED: CARVEDILOL3.125 MG ORAL (13:05)
--- NOTE | 2019-07-04 15:02 | NUR ---
*-*DISCHARGE PLANNING*-* PATIENT HAS BEEN REFERRED TO: [facility], [facility], [facility] P: [phone] F: [phone] *-*CLINICALS FAXED*-* Addendum: 07/04/19 at 1622 by PHONG JOSEPH LVN LVN PATIENT ACCEPTED FOR HOME HEALTH WITH [facility]. AGENCY WILL CONTACT PATIENT. HANNAH BARRIE AWARE AND WILL INFORM PATIENT.
[2019-07-04] MEDS ORDERED: Warfarin Sodium 1mg ORAL ONE (17:00)
--- NOTE | 2019-07-04 19:33 | NUR ---
HAND-OFF: Report given to Report given to HANNAH King patient laying on bed with out no distress endorsed discharge and medication teaching and to remove IV access when the nephew arrive. RN called for Nephew Chad to rock picker patient when discharge order placed MR. Bonilla reported will rock picker patient at 5pm RN called to check at 5:30pm and 6:14pm no answer.
--- NOTE | 2019-07-04 19:34 | NUR ---
NURSE NOTES: Received report & pt from HANNAH Cassidy. Pt lying in bed, a&ox4, Serbian speaking with little Ecuadorean, in room air. No s/s of acute distress & no c/o pain at this time. Surgical dressing C/D/I. IV site intact & S/L'd. Pt scheduled to be d/c'd today. Waiting for nephew to pick and shovel man pt. D/C paperwork printed. Will continue to monitor.
--- NOTE | 2019-07-04 19:40 | NUR ---
NURSE NOTES: Patient discharge medication /Warfarin/ and discharge instruction in the chart receiving nurse and charge nurse aware.
--- NOTE | 2019-07-04 21:53 | Infectious Diseases Prog Note ---
Assessment/Plan Assessment/Plan ASSESSMENT AND PLAN: 1. e.coli bacteremia, acute appendicitis, sepsis, leukocytosis, pelvic cystic mass - zosyn - day #7 abx - consider oral augmentin x 1 week - s/p lap appendectomy and resection of cyst/mass - monitor labs - surveillance blood cultures negative - clinically stable 2. Atrial fibrillation. 3. Acute kidney injury. 4. Chronic renal failure. 5. Anemia. 6. BPH. 7. Hypertension. 8. Blood pressure treatment per primary care team and consultants. 9. Chronic kidney disease. 10. Altered mental status/encephalopathy. 11. Thrombocytopenia. 12. Lactic acidosis and sepsis. 13. Prediabetes. 14. History of meningioma. 15. Continue treatment per primary consultants. 16. No known drug allergies. 17. Social history is negative. 18. Family history is noncontributory. 19. Case was discussed with RN. Subjective Constitutional: Denies: fever HEENT: Denies: congestion Respiratory: Denies: shortness of breath Cardiovascular: Denies: chest pain Gastrointestinal/Abdominal: Denies: nausea Genitourinary: Denies: dysuria Neurologic: Denies: headache Psychiatric: Denies: depression Skin: Denies: rash Hematologic: Denies: bleeding Musculoskeletal: Denies: pain Allergies: Coded Allergies: No Known Allergies (Unverified , 06/26/19) Objective Vital Signs Last 24 Hour Vital Signs Date Time Temp Pulse Resp B/P (MAP) Pulse Ox O2 Delivery O2 Flow Rate FiO2 07/04/19 16:09 97.1 69 21 141/83 (102) 96 07/04/19 11:41 98.6 69 19 120/68 (85) 97 07/04/19 09:00 Room Air 07/04/19 09:00 61 99/71 07/04/19 08:02 97.0 61 18 99/71 (80) 93 07/04/19 04:00 98.0 93 17 126/67 (86) 93 07/04/19 00:00 98.4 94 17 118/74 (89) 97 Height (Feet): 5 Height (Inches): 5.00 Weight (Pounds): 138 General Appearance: no acute distress HEENT: normocephalic, atraumatic, anicteric, mucous membranes moist Respiratory/Chest: lungs clear, normal breath sounds, no respiratory distress, no accessory muscle use Cardiovascular: normal rate, regular rhythm, no gallop/murmur, no JVD Abdomen: normal bowel sounds, soft, non tender, no organomegaly, non distended Genitourinary: other - no harris Extremities: no cyanosis Skin: no rash Neurologic/Psychiatric: hand bootmaker II-XII grossly normal, alert, oriented x 3, responsive Lymphatic: no neck adenopathy Musculoskeletal: no effusion Objective CT scan abdomen and pelvis: Impression: Findings consistent with acute appendicitis. There are questionably 2 small adjacent gas bubbles which are more likely artifactual than real but could indicate focal microperforation. However, there is no evidence of periappendiceal abscess. 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 Not definitely related to any adjacent organs. The possibility of unusual cystic neoplasm should also be considered. Adjacent 1.7 cm mesenteric root mass demonstrating nonspecific soft tissue attenuation. Likewise nonspecific, neoplasm not excludable Nonspecific prominent retroperitoneal nodes Borderline splenomegaly Atrophic left kidney Grade 1-2 spondylolisthesis of L4 on L5 without evidence of spondylolysis. There is associated secondary degenerative change Cardiomegaly Pericardial effusion Chest x-ray - Procedure: XRAY Chest 1v Indication: Chest pain Technique: One view of the chest Comparison: none Findings: Patient's heart is enlarged. Patient's hand obscures the left lung base. Atelectatic changes or scarring are seen in the bilateral perihilar regions. Granulomas calcifications are seen in the right midlung. No acute infiltrates, effusions, or congestion. Impression: Cardiomegaly No acute process Evidence of old granulomatous disease Microbiology Date/Time Source Procedure Growth Status 06/29/19 05:50 Blood Blood Culture - Preliminary NO GROWTH AFTER 4 DAYS Resulted 06/30/19 13:07 Peritoneal Fluid Anaerobic Culture - Final NO ANAEROBES ISOLATED Complete 06/26/19 18:20 Urine,Clean Catch Urine Culture - Final NO GROWTH AFTER 48 HOURS Complete Labs Test 07/02/19 06:00 07/03/19 04:45 07/04/19 04:40 White Blood Count 4.4 K/UL (4.8-10.8) 4.3 K/UL (4.8-10.8) Red Blood Count 3.44 M/UL (4.70-6.10) 3.57 M/UL (4.70-6.10) Hemoglobin 11.9 G/DL (14.2-18.0) 12.3 G/DL (14.2-18.0) Hematocrit 34.1 % (42.0-52.0) 35.6 % (42.0-52.0) Mean Corpuscular Volume 99 FL (80-99) 100 FL (80-99) Mean Corpuscular Hemoglobin 34.6 PG (27.0-31.0) 34.3 PG (27.0-31.0) Mean Corpuscular Hemoglobin Concent 34.9 G/DL (32.0-36.0) 34.4 G/DL (32.0-36.0) Red Cell Distribution Width 12.2 % (11.6-14.8) 12.3 % (11.6-14.8) Platelet Count 109 K/UL (150-450) 122 K/UL (150-450) Mean Platelet Volume 7.4 FL (6.5-10.1) 6.3 FL (6.5-10.1) Neutrophils (%) (Auto) 70.4 % (45.0-75.0) 65.1 % (45.0-75.0) Lymphocytes (%) (Auto) 19.4 % (20.0-45.0) 22.8 % (20.0-45.0) Monocytes (%) (Auto) 8.5 % (1.0-10.0) 7.8 % (1.0-10.0) Eosinophils (%) (Auto) 1.3 % (0.0-3.0) 3.8 % (0.0-3.0) Basophils (%) (Auto) 0.4 % (0.0-2.0) 0.5 % (0.0-2.0) Prothrombin Time 15.9 SEC (9.30-11.50) 21.2 SEC (9.30-11.50) 19.4 SEC (9.30-11.50) Prothromb Time International Ratio 1.5 (0.9-1.1) 2.1 (0.9-1.1) 1.9 (0.9-1.1) Activated Partial Thromboplast Time 34 SEC (23-33) Sodium Level 144 MMOL/L (136-145) 144 MMOL/L (136-145) Potassium Level 3.9 MMOL/L (3.5-5.1) 4.2 MMOL/L (3.5-5.1) Chloride Level 108 MMOL/L (98-107) 108 MMOL/L (98-107) Carbon Dioxide Level 29 MMOL/L (21-32) 31 MMOL/L (21-32) Anion Gap 7 mmol/L (5-15) 5 mmol/L (5-15) Blood Urea Nitrogen 16 mg/dL (7-18) 15 mg/dL (7-18) Creatinine 1.3 MG/DL (0.55-1.30) 1.3 MG/DL (0.55-1.30) Estimat Glomerular Filtration Rate 52.5 mL/min (>60) 52.5 mL/min (>60) Glucose Level 112 MG/DL (74-106) 120 MG/DL (74-106) Calcium Level 8.6 MG/DL (8.5-10.1) 8.9 MG/DL (8.5-10.1) Phosphorus Level 2.8 MG/DL (2.5-4.9) Magnesium Level 2.2 MG/DL (1.8-2.4) Total Bilirubin 0.5 MG/DL (0.2-1.0) 0.5 MG/DL (0.2-1.0) Aspartate Amino Transf (AST/SGOT) 36 U/L (15-37) 36 U/L (15-37) Alanine Aminotransferase (ALT/SGPT) 35 U/L (12-78) 36 U/L (12-78) Alkaline Phosphatase 66 U/L (46-116) 61 U/L (46-116) Total Protein 6.2 G/DL (6.4-8.2) 6.3 G/DL (6.4-8.2) Albumin 2.6 G/DL (3.4-5.0) 2.6 G/DL (3.4-5.0) Globulin 3.6 g/dL 3.7 g/dL Albumin/Globulin Ratio 0.7 (1.0-2.7) 0.7 (1.0-2.7) Laboratory Tests Test 07/04/19 04:40 Prothrombin Time 19.4 SEC (9.30-11.50) H Prothromb Time International Ratio 1.9 (0.9-1.1) H Current Medications Medications (Trade) Dose Ordered Sig/Chicho Route PRN Reason Start Time Stop Time Status Last Admin Dose Admin Acetaminophen (Tylenol) 650 mg Q4H PRN ORAL Mild Pain (Pain Scale 1-3) 07/02/19 13:45 07/28/19 13:44 Acetaminophen (Tylenol) 650 mg Q4H PRN ORAL fever 07/02/19 13:45 07/28/19 13:44 Carvedilol (Coreg) 3.125 mg EVERY 12 HOURS ORAL 07/04/19 21:00 07/28/19 20:59 Dextrose (Dextrose 50%) 25 ml Q30M PRN IV Hypoglycemia 07/02/19 14:00 07/27/19 00:00 Dextrose (Dextrose 50%) 50 ml Q30M PRN IV Hypoglycemia 07/02/19 14:00 07/27/19 00:00 Finasteride (Proscar) 5 mg DAILY ORAL 07/03/19 09:00 07/29/19 08:59 07/04/19 09:15 Morphine Sulfate (Morphine Sulfate) 4 mg Q4H PRN IVP pain score 7-10 07/02/19 14:00 07/07/19 13:59 Ondansetron HCl (Zofran) 4 mg Q6H PRN IVP Nausea & Vomiting 07/02/19 14:00 07/28/19 13:59 Piperacillin Sod/ Tazobactam Sod 3.375 gm/Sodium Chloride 110 ml @ 27.5 mls/hr EVERY 8 HOURS IVPB 07/02/19 14:00 07/07/19 13:59 07/04/19 14:00 Polyethylene Glycol (Miralax) 17 gm HSPRN PRN ORAL Constipation 07/02/19 14:15 07/28/19 14:14 Tamsulosin HCl (Flomax) 0.4 mg DAILY ORAL 07/03/19 09:00 07/29/19 08:59 07/04/19 09:15 Warfarin Sodium (Coumadin per pharmacy) 1 ea DAILY PRN MISC Per rx protocol 07/03/19 09:00 07/31/19 11:29 Sohail Leung MD Jul 04, 2019 21:53
--- NOTE | 2019-07-04 22:00 | NUR ---
NURSE NOTES: Pt's meds Augmentin and Coumadin given to nephew.
--- NOTE | 2019-07-04 23:06 | NUR ---
NURSE NOTES: Pt is scheduled for D/C today, however pt wants to get discharged tomorrow instead. Per pt, he's too tired to go home tonight. Called Dr. Wright's group & Dr. West called back stating the physician substation maintenance technician can take care of the discharge tomorrow morning. Charge nurse made aware. Addendum: 07/04/19 at 2310 by Christine Hale RN Pt's nephew is also aware that pt wants to go home tomorrow. Alfonso will brass pickler pt tomorrow @ 0600.
[2019-07-05 04:00] VITALS: BP 133/74
[2019-07-05] MEDS: Piperacillin/Tazobactam 3.375 GM in NS 110 ML IVPB SCH (05:56)
--- NOTE | 2019-07-05 06:20 | NUR ---
DISCHARGE NOTE: D/C'd pt to home as ordered by MD. Pt denies pain and is in no distress. D/C paperwork & instructions carefully explained & signed by nephew. All questions answered. Accompanied by staff & nephew via wheelchair to private vehicle.
[2019-07-05 07:06] LABS: ALANINE AMINOTRANSFERASE 32 U/L (12-78); ALBUMIN 2.8 G/DL (3.4-5.0); ALBUMIN/GLOBULIN RATIO 0.8 (1.0-2.7); ALKALINE PHOSPHATASE 57 U/L (46-116); ANION GAP 9 mmol/L (5-15); ASPARTATE AMINO TRANSFERASE 34 U/L (15-37); BASOPHILS % (AUTO) 0.4 % (0.0-2.0); BILIRUBIN,TOTAL 0.5 MG/DL (0.2-1.0); BLOOD UREA NITROGEN 19 mg/dL (7-18); CALCIUM 9.2 MG/DL (8.5-10.1); CARBON DIOXIDE 28 MMOL/L (21-32); CHLORIDE 107 MMOL/L (98-107); CREATININE 1.3 MG/DL (0.55-1.30); EOSINOPHILS % (AUTO) 3.3 % (0.0-3.0); HEMATOCRIT 36.8 % (42.0-52.0); HEMOGLOBIN 12.8 G/DL (14.2-18.0); LYMPHOCYTES % (AUTO) 23.1 % (20.0-45.0); MEAN CORPUSCULAR VOLUME 99 FL (80-99); MONOCYTES % (AUTO) 4.5 % (1.0-10.0); NEUTROPHILS % (AUTO) 68.6 % (45.0-75.0); PLATELET COUNT 172 K/UL (150-450); RED BLOOD COUNT 3.72 M/UL (4.70-6.10); RED CELL DISTRIBUTION WIDTH 12.1 % (11.6-14.8); SODIUM 144 MMOL/L (136-145); WHITE BLOOD COUNT 5.3 K/UL (4.8-10.8)
[2019-07-05 07:15] LABS: INR 1.8 (0.9-1.1)
--- NOTE | 2019-07-05 13:30 | NUR ---
*-* INSURANCE *-* ALL CLINICALS AND REVIEWS HAVE BEEN FAXED TO: [facility] # YET # [phone] FAX# [phone] REVIEWS/CLINICALS
--- NOTE | 2019-07-05 22:21 | General Progress Note ---
Assessment/Plan Status: stable Assessment/Plan: 83 year old male presented with altered mental status. #Acute Appendicitis s/p emergent Lap Appendectomy, POD#3, initial concern for cystic mass, no concern for malignancy per Surgery #Severe Sepsis 2/2 Beck Sensitive Ecoli Bacteremia 2/2 Above w/ associated Lactic Acidosis #Severe sepsis #Gram-negative bacteremia, E. Coli, beck sensitive , from UTI or biliary #Acute metabolic encephalopathy- resolved # Lactic acidosis-resolved telemetry IV Zosyn per ID, Continue IV AB w/ Zosyn, anticipate patient will require extended course. Augmentin for 10 more days on discharge. D/w ID CT abdomen pelvis- acute appendicitis, mesenteric mass, as above. Dr. Wright consulted. 2D echo no evidence of vegetations Can wait to follow-up pathology results as an outpatient for surgery Cleared for discharge per surgery Cleared for discharge per infectious disease May need H/H on D/c. Will discuss with CM and patient #Atrial fibrillation Telemetry Atrial fib with RVR continue coreg 6.25 bid Restarted Coumadin. Now therapeutic. Will need to confirm with pharmacy what dose to discharge cardiology consult Monitor for 1 more day given episode of A. fib with RVR yesterday #GIANLUCA (acute kidney injury) #CKD (chronic kidney disease) Monitor renal function avoid nephrotoxic medications stable #Thrombocytopenia continue Coumadin for afib, given high [facility]ADSVASC hematology consult #HTN (hypertension) #Possible CHF Coreg. 2D echocardiogram, EF 55% Elevated BNP of more than 5000, possible congestive heart failure. #COPD on albuterol #Pre-diabetes monitor glucose on chemistry #Meningioma incidental. outpatient follow up I spent 38 minutes on this encounter. Greater than 50% spend on counselling and care coordination time of note may not reflect time of encounter Subjective Date patient seen: Jul 04, 2019 Allergies: Coded Allergies: No Known Allergies (Unverified , 06/26/19) Subjective No acute events overnight per nursing. Patient with episode of heart rate to 145 and blood pressure in the 70s. Has not occurred since. Denies any syncope or near syncope. Otherwise has been stable. Review of systems: Constitutional: Denies: chills, diaphoresis, fever, malaise, weakness, other HEENT: Denies: eye pain, blurred vision, tearing, double vision, ear pain, ear discharge, nose pain, nose congestion, throat pain, throat swelling, mouth pain , mouth swelling, Cardiovascular: Denies: chest pain, edema, lightheadedness, palpitations, syncope, Respiratory: Denies: cough, orthopnea, shortness of breath, SOB with excertion , SOB at rest, sputum, stridor, wheezing, other Gastrointestinal/Abdominal: Denies: abdomen distended, abdominal pain, black stools, tarry stools, blood in stool, constipated, diarrhea, difficulty swallowing, nausea, poor appetite, poor fluid intake, rectal bleeding, vomiting , other Genitourinary: Denies: burning, discharge, frequency, flank pain, hematuria, incontinence, pain, urgency, other Neurologic/Psychiatric: Denies: anxiety, depressed, emotional problems, headache, numbness, paresthesia, pre-existing deficit, seizure, tingling, tremors, weakness, other Endocrine: Denies: excessive sweating, flushing, intolerance to cold, intolerance to heat, increased hunger, increased thirst, increased urine, unexplained weight gain, unexplained weight loss, other Hematologic/Lymphatic: Denies: anemia, easy bleeding, easy bruising, other Objective Last 24 Hour Vital Signs Date Time Temp Pulse Resp B/P (MAP) Pulse Ox O2 Delivery O2 Flow Rate FiO2 07/05/19 04:00 98.4 80 17 133/74 (93) 96 07/04/19 23:38 98.0 77 16 137/78 (97) 95 Intake and Output 07/04/19 07/05/19 19:00 07:00 Intake Total 960 ml 240 ml Balance 960 ml 240 ml Intake Oral 960 ml 240 ml # Voids 4 4 # Bowel Movements 1 1 Laboratory Tests 07/05/19 05:05: White Blood Count 5.3, Red Blood Count 3.72L, Hemoglobin 12.8L, Hematocrit 36.8L , Mean Corpuscular Volume 99, Mean Corpuscular Hemoglobin 34.4H, Mean Corpuscular Hemoglobin Concent 34.7, Red Cell Distribution Width 12.1, Platelet Count 172, Mean Platelet Volume 5.8L, Neutrophils (%) (Auto) 68.6, Lymphocytes ( %) (Auto) 23.1, Monocytes (%) (Auto) 4.5, Eosinophils (%) (Auto) 3.3H, Basophils (%) (Auto) 0.4, Prothrombin Time 18.7H, Prothromb Time International Ratio 1.8H, Sodium Level 144, Potassium Level 4.0, Chloride Level 107, Carbon Dioxide Level 28, Anion Gap 9, Blood Urea Nitrogen 19H, Creatinine 1.3, Estimat Glomerular Filtration Rate 52.5, Glucose Level 110H, Calcium Level 9.2, Total Bilirubin 0.5, Aspartate Amino Transf (AST/SGOT) 34, Alanine Aminotransferase ( ALT/SGPT) 32, Alkaline Phosphatase 57, Total Protein 6.5, Albumin 2.8L, Globulin 3.7, Albumin/Globulin Ratio 0.8L Height (Feet): 5 Height (Inches): 5.00 Weight (Pounds): 150 Objective General: WDWN male in NAD, A&O x 4 HEENT: Normocephalic cephalic atraumatic, pupils equal round reactive to light and accommodation, nares patent and no symmetrical, no tonsillar exudates, mucous membranes moist CV: Regular rate regular rhythm, no murmurs, rubs, or gallops Pulm: Lungs clear to auscultation bilaterally. No wheezes, rhonchi, or rales GI: Soft, nontender, nondistended, bowel sounds present Neuro: CN 2-12 intact bilaterally, no focal signs. Ext: No lower extremity edema bilaterally Skin: no rashes lesions or ulcers Msk: Joints symmetrical in upper extremity and lower extremity bilaterally, no joint swelling. Lymph: No lymphadenopathy in upper extremity and lower extremity Víctor Lopez D.O. Jul 05, 2019 22:21
--- NOTE | 2019-07-05 22:22 | Discharge Summary ---
Discharge Summary Hospital Course Date of Admission Jun 26, 2019 at 19:57 Date of Discharge Jul 05, 2019 at 06:20 Admitting Diagnosis AMS HPI Holly Weeks is a 83 year old male who was admitted on Jun 26, 2019 at 19:57 for Altered Mental Status Hospital Course 83 year old male presented with altered mental status. #Acute Appendicitis s/p emergent Lap Appendectomy, POD#3, initial concern for cystic mass, no concern for malignancy per Surgery #Severe Sepsis 2/2 Beck Sensitive Ecoli Bacteremia 2/2 Above w/ associated Lactic Acidosis #Severe sepsis #Gram-negative bacteremia, E. Coli, beck sensitive , from UTI or biliary #Acute metabolic encephalopathy- resolved # Lactic acidosis-resolved telemetry IV Zosyn per ID, Continue IV AB w/ Zosyn, anticipate patient will require extended course. Augmentin for 10 more days on discharge. D/w ID CT abdomen pelvis- acute appendicitis, mesenteric mass, as above. Dr. Wright consulted. 2D echo no evidence of vegetations Can wait to follow-up pathology results as an outpatient for surgery Cleared for discharge per surgery Cleared for discharge per infectious disease May need H/H on D/c. Will discuss with CM and patient #Atrial fibrillation Telemetry Atrial fib with RVR continue coreg 6.25 bid Restarted Coumadin. Now therapeutic. Will need to confirm with pharmacy what dose to discharge cardiology consult Monitor for 1 more day given episode of A. fib with RVR yesterday #GIANLUCA (acute kidney injury) #CKD (chronic kidney disease) Monitor renal function avoid nephrotoxic medications stable #Thrombocytopenia continue Coumadin for afib, given high [facility] hematology consult #HTN (hypertension) #Possible CHF Coreg. 2D echocardiogram, EF 55% Elevated BNP of more than 5000, possible congestive heart failure. #COPD on albuterol #Pre-diabetes monitor glucose on chemistry #Meningioma incidental. outpatient follow up I spent 38 minutes on this encounter. Greater than 50% spend on counselling and care coordination time of note may not reflect time of encounter Discharge Discharge Vital Signs Last Vital Signs Date Time Temp Pulse Resp B/P (MAP) Pulse Ox O2 Delivery O2 Flow Rate FiO2 07/05/19 04:00 98.4 80 17 133/74 (93) 96 07/04/19 21:00 Room Air 07/03/19 21:00 21 06/30/19 14:00 6 Discharge Disposition Patient was discharged to Home with Home Health(06) Discharge Instructions Discharge Instructions Follow up with: Your PCP within one week. Follow up with Dr. Love in 1- 2 weeks. Activity: resume normal activities For Surgical Patients Dressing Care: keep dry and clean Víctor Lopez D.O. Jul 05, 2019 22:22
--- NOTE | 2019-07-24 10:09 | NUR ---
*-* INSURANCE *-* ALL CLINICALS AND REVIEWS HAVE BEEN FAXED TO: [facility] [employer] [facility] # YET # [phone] FAX# [phone] REVIEWS/CLINICALS
== END 2019-07-05 06:20 | disposition home health service (06) | DRG 853 ==
LOC: EDBD 17:55 → EMR 18:10 → 4E 19:57 → EDBEDREQSVC 23:01 → EDBEDREQ 23:01 → 2E 06-28 13:17 → 3E 07-02 13:40
PROC: 0DBW4ZZ Excision of Peritoneum, Percutaneous Endoscopic Approach (ICD-10-PCS; principal; 2019-06-30 12:00)
PROC: 0DTJ4ZZ Resection of Appendix, Percutaneous Endoscopic Approach (ICD-10-PCS; principal; 2019-06-30 12:00)
DX: A41.51 Sepsis due to Escherichia coli [E. coli] (principal); G93.41 Metabolic encephalopathy; N39.0 Urinary tract infection, site not specified; N17.9 Acute kidney failure, unspecified; I13.0 Hypertensive heart and chronic kidney disease with heart failure and stage 1 through stage 4 chronic kidney disease, or unspecified chronic kidney disease; K35.80 Unspecified acute appendicitis; I50.30 Unspecified diastolic (congestive) heart failure; J44.9 Chronic obstructive pulmonary disease, unspecified; R65.20 Severe sepsis without septic shock; D32.9 Benign neoplasm of meninges, unspecified; N18.9 Chronic kidney disease, unspecified; K66.8 Other specified disorders of peritoneum; D69.6 Thrombocytopenia, unspecified; M43.16 Spondylolisthesis, lumbar region; R73.03 Prediabetes; Z79.01 Long term (current) use of anticoagulants
CPT/HCPCS: 36415; 70450; 71045; 74176; 76700; 80048; 80053; 81003; 82248; 82533; 82550; 82962; 83036; 83605; 83690; 83735; 83880; 84100; 84439; 84443; 84481; 84484; 85007; 85025; 85610; 85651; 85730; 86140; 86703; 86705; 86709; 86803; 87040; 87070; 87075; 87086; 87181; 87205; 87340; 93005; 93306; 93970; 94003; 94150; 94664; 96361; 96365; 99291; J1815; J2250; J2405; J7030

== ENCOUNTER 2019-09-12 10:07 | Emergency (ER) | payer OTHER ==
[~2019-09-12] VITALS: Ht 170.2 cm; Wt 65.8 kg
[~2019-09-12 10:07] MED LIST: AUGMENTIN 875-1 EAC1 ORAL; CALCITRIOL0.25 MCG PO; CARVEDILOL3.125 MG ORAL; CARVEDILOL6.25 MG ORAL; FINASTERIDE5 MG ORAL; FLOMAX0.4 MG ORAL; WARFARIN SODIUM1 MG ORAL; WARFARIN SODIUM3 MG ORAL
[2019-09-12 10:18] VITALS: BP 100/59
[2019-09-12 10:37] LABS: APPEARANCE,URINE CLEAR; BILIRUBIN, URINE NEGATIVE (NEGATIVE); COLOR,URINE PALE YELLOW; GLUCOSE, URINE (UA) NEGATIVE (NEGATIVE); KETONES,URINE NEGATIVE (NEGATIVE); LEUKOCYTE ESTERASE ,URINE 2+ (NEGATIVE); NITRITE,URINE NEGATIVE (NEGATIVE); PH,URINE 5 (4.5-8.0); PROTEIN,URINE NEGATIVE (NEGATIVE); UROBILINOGEN,URINE NORMAL MG/DL (0.0-1.0)
--- NOTE | 2019-09-12 10:48 | Emergency Room Report ---
History of Present Illness General Chief Complaint: Male Urogenital Problems Source: Patient Present Illness HPI 84-year-old male presents for dysuria and urinary frequency x1 day. Denies pain. Denies fevers or chills. Denies nausea or vomiting. States he has had prior UTIs. Denies any abdominal pain. No other aggravating relieving factors. Denies any other associated symptoms Allergies: Coded Allergies: No Known Allergies (Unverified , 06/26/19) COVID-19 Screening Contact w/high risk pt: No Recent Travel to affected area: No Experienced COVID-19 symptoms?: No Patient History Past Medical History: HTN Past Surgical History: none Pertinent Family History: none Social History: Denies: smoking, alcohol use, drug use Immunizations: UTD Reviewed Nursing Documentation: PMH: Agreed; PSxH: Agreed Nursing Documentation-PMH Past Medical History: No History, Except For Hx Cardiac Problems: Yes Hx Hypertension: Yes Hx Cancer: No Hx Gastrointestinal Problems: No Hx Neurological Problems: No Review of Systems All Other Systems: negative except mentioned in HPI Physical Exam Vital Signs Date Time Temp Pulse Resp B/P (MAP) Pulse Ox O2 Delivery O2 Flow Rate FiO2 09/12/19 10:18 97.5 68 18 100/59 (73) 98 Room Air Sp02 EP Interpretation: reviewed, normal General Appearance: no apparent distress, alert, GCS 15, non-toxic Head: normocephalic, atraumatic Eyes: bilateral eye normal inspection, bilateral eye PERRL ENT: hearing grossly normal, normal pharynx, no angioedema, normal voice Neck: full range of motion, supple/symm/no masses Respiratory: chest non-tender, lungs clear, normal breath sounds, speaking full sentences Cardiovascular #1: regular rate, rhythm, no edema Cardiovascular #2: 2+ carotid (R), 2+ carotid (L), 2+ radial (R), 2+ radial (L) , 2+ dorsalis pedis (R), 2+ dorsalis pedis (L) Gastrointestinal: normal bowel sounds, non tender, soft, non-distended, no guarding, no rebound Rectal: deferred Genitourinary: normal inspection, no CVA tenderness Musculoskeletal: back normal, normal range of motion, gait/station normal, non- tender Neurologic: alert, motor strength/tone normal, oriented x3, sensory intact, responsive, speech normal Psychiatric: judgement/insight normal, memory normal, mood/affect normal, no suicidal/homicidal ideation Reflexes: 3+ bicep (R), 3+ bicep (L), 3+ tricep (R), 3+ tricep (L), 3+ knee (R) , 3+ knee (L) Lymphatic: no adenopathy Medical Decision Making Diagnostic Impression: Primary Impression: Urinary tract infection Qualified Codes: N30.01 - Acute cystitis with hematuria ER Course Hospital Course 84 yo M presents with dysuria, hematuria Differential diagnoses include: UTI, cystitis, pyelonephritis Clinical course Patient placed on stretcher. After initial history and physical I ordered UA UA + blood + bacteria. I reviewed findings with patient. Patient appears well. Nontoxic. Vitals stable. Will discharge home with antibiotics. Safe for discharge with close outpatient follow-up. Diagnosis - UTI Stable and discharged home with prescriptions for Rx Keflex. Instructed to followup with PMD. Return to ED if symptoms recur or worsen Labs Test 09/12/19 10:25 Urine Color Pale yellow Urine Appearance Clear Urine pH 5 (4.5-8.0) Urine Specific [place] 1.005 (1.005-1.035) Urine Protein Negative (NEGATIVE) Urine Glucose (UA) Negative (NEGATIVE) Urine Ketones Negative (NEGATIVE) Urine Blood 5+ (NEGATIVE) Urine Nitrite Negative (NEGATIVE) Urine Bilirubin Negative (NEGATIVE) Urine Urobilinogen Normal MG/DL (0.0-1.0) Urine Leukocyte Esterase 2+ (NEGATIVE) Urine RBC 5-10 /HPF (0 - 0) Urine WBC 40-60 /HPF (0 - 0) Urine Squamous Epithelial Cells Occasional /LPF Urine Bacteria Occasional /HPF (NONE) Last Vital Signs Date Time Temp Pulse Resp B/P (MAP) Pulse Ox O2 Delivery O2 Flow Rate FiO2 09/12/19 10:18 97.5 72 18 100/59 98 Room Air Status: improved Disposition: HOME, SELF-CARE Condition: Stable Scripts Cephalexin* (KEFLEX*) 500 Mg Capsule 500 MG ORAL EVERY 6 HOURS for 7 Days, #28 CAP Prov: Victor M Porter MD 09/12/19 Victor M Porter MD Sep 12, 2019 10:48
[2019-09-12] MEDS ORDERED: CEPHALEXIN500 MG ORAL (11:08)
[2019-09-12 11:11] VITALS: BP 110/65
== END 2019-09-12 11:11 | disposition home or self-care (01) ==
LOC: EMR 10:45
DX: N30.01 Acute cystitis with hematuria (principal); I10 Essential (primary) hypertension
CPT/HCPCS: 81003; 87086; 99282